=== PATIENT | female | born 1955 | race Caucasian/White ===

== ENCOUNTER → 2021-07-16 | Outpatient (CLI) | payer OTHER ==
[2021-07-16 11:31] LABS: Basophils # (auto) 0 10 ^3/uL (0-0.2); Basophils % (auto) 0.6 % (0.0-2.0); Eosinophils # (auto) 0.1 10 ^3/uL (0-0.8); Eosinophils % (auto) 2.4 % (0.0-7.0); Hematocrit 37.6 % (36.0-46.0); Hemoglobin 13.1 g/dL (12.2-16.2); Lymphocytes # (auto) 1.9 10 ^3/uL (0.4-5.4); Lymphocytes % (auto) 38.7 % (10.0-50.0); Mean Corpuscular Hemoglobin 31.8 pg (28.0-32.0); Mean Corpuscular Hgb Conc. 34.8 g/dL (32.0-36.0); Mean Corpuscular Volume 91.4 fL (80.0-100.0); Monocytes # (auto) 0.4 10 ^3/uL (0-1.3); Monocytes % (auto) 7.4 % (0.0-12.0); Neutrophils # (auto) 2.5 10 ^3/uL (1.6-8.6); Neutrophils % (auto) 50.9 % (37.0-80.0); Nucleated Red Blood Cells % 0.1 %; Red Blood Cells 4.11 10^6/uL (4.0-5.20); Red Cell Distribution Width 13.4 % (11.8-14.3); White Blood Cell 4.8 10^3/uL (4.4-10.8)
[2021-07-16 11:47] LABS: Albumin 3.6 g/dL (3.4-5.0); Calcium 9.5 mg/dL (8.5-10.1); Potassium 4.6 mmol/L (3.5-5.1)
[2021-07-16 11:49] LABS: Urine Bacteria FEW /hpf (None Seen); Urine Blood Negative /uL (Negative); Urine Hyaline Cast FEW /lpf (0 - 2); Urine Specific Gravity 1.011 (1.001-1.035); Urine WBC 4 /hpf (0 - 5)
[2021-07-16 11:51] LABS: BUN/Creatinine Ratio 14.3; Bilirubin, Total 0.7 mg/dL (0.2-1.0); Total Protein 7.8 g/dL (6.4-8.2)
== END | disposition home or self-care (01) ==
LOC: LAB 11:13
PROVIDERS: ATTEND Internal Medicine
DX: Z00.00 Encounter for general adult medical examination without abnormal findings (principal)
CPT/HCPCS: 36415; 80053; 80061; 81001; 83036; 85025

== ENCOUNTER → 2021-07-20 | Outpatient (CLI) | payer OTHER | END | disposition home or self-care (01) | LOC: LAB 17:00 | PROVIDERS: ATTEND Internal Medicine | DX: Z00.00 Encounter for general adult medical examination without abnormal findings (principal) | CPT/HCPCS: 82270 ==

== ENCOUNTER → 2021-09-14 | Outpatient (CLI) | payer OTHER ==
[2021-09-14 17:05] LABS: Albumin 3.9 g/dL (3.4-5.0); Bilirubin, Direct 0.2 mg/dL (0-0.2)
[2021-09-14 17:08] LABS: Bilirubin, Total 0.4 mg/dL (0.2-1.0); Total Protein 7.9 g/dL (6.4-8.2)
== END | disposition home or self-care (01) ==
LOC: LAB 16:24
PROVIDERS: ATTEND Internal Medicine
DX: E78.5 Hyperlipidemia, unspecified (principal)
CPT/HCPCS: 36415; 80076

== ENCOUNTER → 2021-11-01 | Outpatient (CLI) | payer OTHER ==
[2021-11-01 12:32] LABS: Urine Bacteria NONE SEEN /hpf (None Seen); Urine Blood Negative /uL (Negative); Urine Specific Gravity 1.019 (1.001-1.035); Urine WBC 14 /hpf (0 - 5)
== END | disposition home or self-care (01) ==
LOC: LAB 10:54
PROVIDERS: ATTEND Internal Medicine Gastroenterology
DX: N39.0 Urinary tract infection, site not specified (principal)
CPT/HCPCS: 81001; 87086; 87088

== ENCOUNTER → 2021-11-08 | Outpatient (CLI) | payer OTHER | END | disposition home or self-care (01) | LOC: LAB 09:45 | PROVIDERS: ATTEND Internal Medicine | DX: R10.9 Unspecified abdominal pain (principal) | CPT/HCPCS: 36415; 82565; 84520 ==

== ENCOUNTER → 2021-11-28 | Outpatient (CLI) | payer OTHER ==
[2021-11-28 10:58] LABS: Bilirubin, Direct 0.2 mg/dL (0-0.2); Bilirubin, Total 0.7 mg/dL (0.2-1.0); Total Protein 7.6 g/dL (6.4-8.2)
== END | disposition home or self-care (01) ==
LOC: LAB 09:58
PROVIDERS: ATTEND Internal Medicine
DX: R73.03 Prediabetes (principal); E78.5 Hyperlipidemia, unspecified
CPT/HCPCS: 36415; 80061; 80076; 82306; 83036

== ENCOUNTER → 2022-01-04 | Day surgery (SDC) | payer OTHER ==
[2021-12-30 09:36] LABS: Basophils # (auto) 0.1 10 ^3/uL (0-0.2); Basophils % (auto) 1.6 % (0.0-2.0); Eosinophils # (auto) 0.1 10 ^3/uL (0-0.8); Eosinophils % (auto) 1.6 % (0.0-7.0); Hematocrit 39.3 % (36.0-46.0); Hemoglobin 13.7 g/dL (12.2-16.2); Lymphocytes # (auto) 1.6 10 ^3/uL (0.4-5.4); Lymphocytes % (auto) 36.6 % (10.0-50.0); Mean Corpuscular Hemoglobin 32.3 pg (28.0-32.0); Mean Corpuscular Hgb Conc. 34.9 g/dL (32.0-36.0); Mean Corpuscular Volume 92.7 fL (80.0-100.0); Monocytes # (auto) 0.3 10 ^3/uL (0-1.3); Monocytes % (auto) 6.4 % (0.0-12.0); Neutrophils # (auto) 2.3 10 ^3/uL (1.6-8.6); Neutrophils % (auto) 53.8 % (37.0-80.0); Nucleated Red Blood Cells % 0.1 %; Red Blood Cells 4.24 10^6/uL (4.0-5.20); Red Cell Distribution Width 13.2 % (11.8-14.3); White Blood Cell 4.2 10^3/uL (4.4-10.8)
[2021-12-30 10:30] LABS: Albumin 3.9 g/dL (3.4-5.0); Calcium 9.6 mg/dL (8.5-10.1); Potassium 3.8 mmol/L (3.5-5.1)
[2021-12-30 10:35] LABS: Bilirubin, Total 0.8 mg/dL (0.2-1.0); Total Protein 7.5 g/dL (6.4-8.2)
[~2022-01-04] VITALS: Ht 165.1 cm; Wt 95.7 kg
[~2022-01-04] MED LIST: ATOR10TA PO; LIDOCAINE VISCOUS 2% 15ML UD ONE; LOSA25TA38 PO; METF-370 PO
[2022-01-04] MEDS: fentaNYL CITRATE 100 MCG/2 ML VL ONE ×3 (14:46→14:52)
[2022-01-04] MEDS: MIDAZOLAM HCL 5 MG/ML-1ML VIAL ONE ×3 (14:46→14:52)
[2022-01-04] MEDS: diphenhdrAMINE HCL 50 MG/1 ML VL ONE ×2 (14:46→14:49)
[2022-01-04 15:17] VITALS: BP 145/63
== END | disposition home or self-care (01) ==
LOC: GI 12:44
PROVIDERS: ATTEND Internal Medicine Gastroenterology
DX: R10.11 Right upper quadrant pain (principal); K29.50 Unspecified chronic gastritis without bleeding; K25.9 Gastric ulcer, unspecified as acute or chronic, without hemorrhage or perforation; K44.9 Diaphragmatic hernia without obstruction or gangrene; I10 Essential (primary) hypertension; E11.9 Type 2 diabetes mellitus without complications; E78.5 Hyperlipidemia, unspecified; G43.909 Migraine, unspecified, not intractable, without status migrainosus; Z98.890 Other specified postprocedural states; Z79.899 Other long term (current) drug therapy; Z88.0 Allergy status to penicillin; Z20.822 Contact with and (suspected) exposure to COVID-19
CPT/HCPCS: 36415; 43239; 80053; 82962; 85025; 88305; 88342; J1200; J2250; J3010; J7030; U0003; 99152

== ENCOUNTER → 2022-02-07 | Outpatient (CLI) | payer OTHER ==
[~2022-02-07] MED LIST changes: -LIDOCAINE VISCOUS 2% 15ML UD ONE
[2022-02-07 10:49] LABS: Urine Bacteria NONE SEEN /hpf (None Seen); Urine Blood Negative /uL (Negative); Urine Specific Gravity 1.012 (1.001-1.035); Urine WBC 1 /hpf (0 - 5)
== END | disposition home or self-care (01) ==
LOC: LAB 10:05
PROVIDERS: ATTEND Internal Medicine Gastroenterology
DX: N39.0 Urinary tract infection, site not specified (principal)
CPT/HCPCS: 81001; 87086

== ENCOUNTER → 2022-02-21 | Outpatient (CLI) | payer OTHER | END | disposition home or self-care (01) | LOC: LAB 10:25 | PROVIDERS: ATTEND Internal Medicine | DX: R73.03 Prediabetes (principal); E55.9 Vitamin D deficiency, unspecified | CPT/HCPCS: 36415; 82306; 83036; 84443 ==

== ENCOUNTER → 2022-03-21 | Outpatient (CLI) | payer OTHER | END | disposition home or self-care (01) | LOC: LAB 13:21 | PROVIDERS: ATTEND Internal Medicine | DX: Z12.11 Encounter for screening for malignant neoplasm of colon (principal) | CPT/HCPCS: 82270 ==

== ENCOUNTER → 2022-08-01 | Outpatient (CLI) | payer OTHER ==
[2022-08-01 13:19] LABS: Cholesterol 160 mg/dL (< 200); HDL Cholesterol 81 mg/dL (40-59); LDL Cholesterol 85 mg/dL (< 100); Triglycerides 48 mg/dL (< 150)
== END | disposition home or self-care (01) ==
LOC: LAB 11:55
PROVIDERS: ATTEND Internal Medicine
DX: R73.03 Prediabetes (principal)
CPT/HCPCS: 36415; 80061; 83036

== ENCOUNTER → 2022-08-07 | Outpatient (CLI) | payer OTHER | END | disposition home or self-care (01) | LOC: LAB 14:48 | PROVIDERS: ATTEND Internal Medicine | DX: R73.03 Prediabetes (principal) | CPT/HCPCS: 82043 ==

== ENCOUNTER 2023-02-27 10:31 | Emergency (ER) | payer OTHER ==
[2023-02-27] MEDS ORDERED: HYDROcodone-ACET 10/325MG TAB PO ONE (12:00)
[2023-02-27 13:17] VITALS: BP 188/63
[2023-02-27] MEDS ORDERED: HYDR-4902 PO (15:21)
[2023-02-27] MEDS ORDERED: IBUP800T26 PO (15:21)
== END 2023-02-27 15:22 | disposition home or self-care (01) ==
LOC: ER 10:31
DX: S39.012A Strain of muscle, fascia and tendon of lower back, initial encounter (principal); S80.02XA Contusion of left knee, initial encounter; E11.9 Type 2 diabetes mellitus without complications; I10 Essential (primary) hypertension; K21.9 Gastro-esophageal reflux disease without esophagitis; Z91.81 History of falling; Z88.0 Allergy status to penicillin; Z79.84 Long term (current) use of oral hypoglycemic drugs; W18.39XA Other fall on same level, initial encounter; Y93.89 Activity, other specified; Y92.89 Other specified places as the place of occurrence of the external cause; Y99.8 Other external cause status
CPT/HCPCS: 72100; 73030; 73080; 73110; 73130; 73562

== ENCOUNTER → 2023-03-05 | Outpatient (CLI) | payer OTHER ==
[~2023-03-05] MED LIST changes: +HYDR-4902 PO; +IBUP800T26 PO
[2023-03-05 11:54] LABS: Basophils # (auto) 0.1 10 ^3/uL (0-0.2); Basophils % (auto) 1.4 % (0.0-2.0); Eosinophils # (auto) 0.1 10 ^3/uL (0-0.8); Eosinophils % (auto) 2.2 % (0.0-7.0); Hematocrit 37.7 % (36.0-46.0); Hemoglobin 12.8 g/dL (12.2-16.2); Lymphocytes # (auto) 1.9 10 ^3/uL (0.4-5.4); Lymphocytes % (auto) 37.5 % (10.0-50.0); Mean Corpuscular Hemoglobin 31.5 pg (28.0-32.0); Mean Corpuscular Volume 92.7 fL (80.0-100.0); Monocytes # (auto) 0.2 10 ^3/uL (0-1.3); Monocytes % (auto) 4.7 % (0.0-12.0); Neutrophils # (auto) 2.8 10 ^3/uL (1.6-8.6); Neutrophils % (auto) 54.2 % (37.0-80.0); Nucleated Red Blood Cells % 0.1 %; Red Blood Cells 4.07 10^6/uL (4.0-5.20); Red Cell Distribution Width 12.8 % (11.8-14.3); White Blood Cell 5.1 10^3/uL (4.4-10.8)
[2023-03-05 13:05] LABS: Albumin 3.4 g/dL (3.4-5.0); BUN/Creatinine Ratio 14.3 (10.0-20.0); Bilirubin, Total 0.5 mg/dL (0.2-1.0); Potassium 3.9 mmol/L (3.5-5.1); Total Protein 7.2 g/dL (6.4-8.2)
== END | disposition home or self-care (01) ==
LOC: LAB 11:33
PROVIDERS: ATTEND Internal Medicine
DX: Z00.00 Encounter for general adult medical examination without abnormal findings (principal); Z12.11 Encounter for screening for malignant neoplasm of colon; R73.03 Prediabetes
CPT/HCPCS: 36415; 80053; 80061; 82306; 83036; 85025

== ENCOUNTER → 2023-03-15 | Outpatient (CLI) | payer OTHER | END | disposition home or self-care (01) | LOC: LAB 06:18 | PROVIDERS: ATTEND Internal Medicine | DX: Z12.11 Encounter for screening for malignant neoplasm of colon (principal); Z00.00 Encounter for general adult medical examination without abnormal findings; D72.819 Decreased white blood cell count, unspecified; R73.03 Prediabetes | CPT/HCPCS: 82270 ==

== ENCOUNTER → 2023-06-05 | Outpatient (CLI) | payer OTHER ==
[~2023-06-05] MED LIST changes: +IBUP-1455 PO; -IBUP800T26 PO; +LOSA25TA15 PO; -LOSA25TA38 PO
[2023-06-05 13:35] LABS: Calcium 9.1 mg/dL (8.5-10.1); Potassium 4.4 mmol/L (3.5-5.1)
[2023-06-05 13:38] LABS: BUN/Creatinine Ratio 12.1 (10.0-20.0)
== END | disposition home or self-care (01) ==
LOC: LAB 12:23
PROVIDERS: ATTEND Internal Medicine
DX: R73.03 Prediabetes (principal); E78.5 Hyperlipidemia, unspecified
CPT/HCPCS: 36415; 80048; 82043; 82306; 83036

== ENCOUNTER → 2023-09-06 | Outpatient (CLI) | payer OTHER | END | disposition home or self-care (01) | LOC: LAB 14:21 | PROVIDERS: ATTEND Internal Medicine | DX: E55.9 Vitamin D deficiency, unspecified (principal) | CPT/HCPCS: 82306 ==

== ENCOUNTER → 2024-09-04 | Outpatient (CLI) | payer OTHER ==
[~2024-09-04] MED LIST changes: +LOSA-533 PO; -LOSA25TA15 PO
[2024-09-04 11:12] LABS: Chloride 106 mmol/L (98-107); Potassium 4.3 mmol/L (3.5-5.1); Sodium 137 mmol/L (136-145)
[2024-09-04 11:13] LABS: Anion Gap 6 (5-15); Calcium 9.4 mg/dL (8.7-10.4); Carbon Dioxide 25 mmol/L (20-31)
[2024-09-04 11:18] LABS: BUN/Creatinine Ratio 14.3 (10.0-20.0); Blood Urea Nitrogen 12 mg/dL (9-23); Creatinine, Urine 85.79 mg/dL (30.0-125.0); Glucose 99 mg/dL (74-106)
== END | disposition home or self-care (01) ==
LOC: LAB 10:30
PROVIDERS: ATTEND Internal Medicine
DX: E11.9 Type 2 diabetes mellitus without complications (principal)
CPT/HCPCS: 36415; 80048; 82043; 82570

== ENCOUNTER 2024-12-20 08:49 | Inpatient (IN) | payer OTHER ==
[~2024-12-20] VITALS: Ht 165.1 cm; Wt 92.4 kg
--- NOTE | 2024-12-20 09:06 | ECG ---
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
--- NOTE | 2024-12-20 09:47 | ED.PDOC ---
History of Present Illness HPI Comments 69-year-old female presents with a chief complaint of hypertensive urgency with associated headache. 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 Patient mentions that she retook her BP at home and it was 200 systolic. In triage, patients BP was 211/90. Patient reports that her headache is rated a 7/10 at this time. Patient mentions that she is compliant with her Losartan medication. No other symptoms or modifying factors present at this time. Chief Complaint: High Blood Pressure Time Seen by MD: 09:33 Reviewed Notes: Medications, Allergies Allergies: Coded Allergies: Penicillins (Unverified Allergy, Unknown, 12/30/21) Home Meds Active Scripts Hydrocodone-Acetaminophen (Hydrocodone Bitartrate/AC 5-325 mg) 1 Tab Tab, 1 TAB PO Q6HP PRN, #10 TAB Prov:CHUNG UMANZOR PAC 02/27/23 Ibuprofen Micronized (Ibuprofen) 800 Mg Tab, 800 MG PO Q8HP PRN, #30 TAB Prov:CHUNG UMANZOR PAC 02/27/23 Reported Medications Atorvastatin Calcium (Lipitor) 10 Mg Tab, 10 MG PO, TAB 12/30/21 Metformin Hydrochloride (Metformin Hcl) 500 Mg Tab, 500 MG PO DAILY, TAB 12/30/21 Losartan Potassium (Losartan Potassium) 25 Mg Tab, 25 MG PO DAILY, TAB 12/30/21 Information Source: Patient Mode of Arrival: Ambulatory Severity: Moderate Timing: Days Duration: Intermittent Prehospital treatment: None Past Medical History PAST MEDICAL HISTORY: DM, GERD, HTN Surgical History: Denies all surgeries 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 Family History Family History: Reviewed,noncontributory to illness, No family hx of Cancer, No family hx of DM, No family hx of Heart inés, No family hx of HTN, No family hx ofKidney inés, No family hx of Liver inés, No family hx of Lung inés, No family hx of Stroke Social History Smoker: Non-Smoker Alcohol: Denies ETOH Use Drugs: Denies Drug Use Lives In: Home Constitutional: denies: chills, diaphoresis, fatigue, fever, malaise, sweats, weakness, others EENTM: denies: blurred vision, double vision, ear bleeding, ear discharge, ear drainage, ear pain, ear ringing, eye pain, eye redness, hearing loss, mouth pain, mouth swelling, nasal discharge, nose bleeding, nose congestion, nose pain, photophobia, tearing, throat pain, throat swelling, voice changes, others Respiratory: denies: cough, hemoptysis, orthopnea, SOB at rest, shortness of breath, SOB with excertion, stridor, wheezing, others Cardiovascular: reports: others (HYPERTENSIVE); denies: chest pain, dizzy spells, diaphoresis, Dyspnea on exertion, edema, irregular heart beat, left arm pain, lightheadedness, palpitations, PND, syncope Gastrointestinal: denies: abdomen distended, abdominal pain, blood streaked bowels, constipated, diarrhea, dysphagia, difficulty swallowing, hematemesis, melena, nausea, poor appetite, poor fluid intake, rectal bleeding, rectal pain, vomiting, others Genitourinary: denies: abnormal vagina bleeding, burning, dyspareunia, dysuria, flank pain, frequency, hematuria, incontinence, pain, , vagina discharge, urgency, others Neurological: reports: headache; denies: dizziness, fainting, left sided numbness, left sided weakness, numbness, paresthesia, pre-existing deficit, right sided numbness, right sided weakness, seizure, speech problems, tingling, tremors, weakness, others Musculoskeletal: denies: back pain, gout, joint pain, joint swelling, muscle pain, muscle stiffness, neck pain, others Integumetry: denies: bruises, change in color, change in hair/nails, dryness, laceration, lesions, lumps, rash, wounds, others Allergic/Immunocompromised: denies: Difficulty Healing, Frequent Infections, Hives, Itching, others Hematologic/Lymphatic: denies: anemia, blood clots, easy bleeding, easy bruising, swollen glands, others Endocrine: denies: excessive hunger, excessive sweating, excessive thirst, excessive urination, flushing, intolerance to cold, intolerance to heat, unexplained weight gain, unexplained weight loss, others Psychiatric: denies: anxiety, bipolar disorder, depression, hopeless, panic disorder, schizophrenia, sleepless, suicidal, others All Other Systems: Reviewed and Negative Physical Exam General Appearance: Mild Distress, Normal HEENT: Normal ENT Inspection, Pharynx Normal, TMs Normal Neck: Full Range of Motion, Non-Tender, Normal, Normal Inspection Respiratory: Chest Non-Tender, Lungs Clear, No Accessory Muscle Use, No Respiratory Distress, Normal Breath Sounds Cardiovascular: No Edema, No JVD, No Murmur, No Gallop, Normal Peripheral Pulses, Regular Rate/Rhythm, Other (HYPERTENSIVE) Breast Exam: Deferred Gastrointestinal: No Organomegaly, Non Tender, No Pulsatile Mass, Normal Bowel Sounds, Soft Genitalia: Deferred Pelvic: Deferred Rectal: Deferred Extremities: No calf tenderness, Normal capillary refill, Normal inspection, Normal range of motion, Non-tender, No pedal edema Musculoskeletal : Apperance: Normal Neurologic: Alert, hand embroiderer II-XII nml as Tested, No Motor Deficits, Normal Affect, Normal Mood, No Sensory Deficits Cerebellar Function: Normal Reflexes: Normal Skin: Dry, Normal Color, Warm Lymphatic: No Adenopathy Was a procedure done? Was a procedure done?: No EKG EKG : Pulse Rate (adult): 58 [place]: Normal Cardiac Rhythm: NSR Block: None Hypertrophy: None ST: Normal Differential Dx Considerations may include: HYPERTENSIVE URGENCY, HYPERTENSION X-Ray, Labs, Meds, VS Vital Signs Date Time Temp Pulse Resp B/P (MAP) Pulse Ox O2 Delivery O2 Flow Rate FiO2 12/20/24 14:03 98.4 75 18 156/75 (102) 100 98.4 12/20/24 11:49 77 127/56 (79) 12/20/24 11:02 Room Air* 0 21 12/20/24 10:58 181/93 12/20/24 10:40 98.6 62 18 181/93 (122) 98 98.6 12/20/24 09:47 58 12/20/24 09:01 58 12/20/24 08:59 97.9 79 14 211/90 (130) 94 12/20/24 08:59 79 Lab Test 12/20/24 10:54 12/20/24 10:37 Range/Units White Blood Count 4.9 4.4-10.8 10^3/uL Red Blood Count 4.06 4.0-5.20 10^6/uL Hemoglobin 13.0 12.2-16.2 g/dL Hematocrit 38.0 36.0-46.0 % Mean Corpuscular Volume 93.5 80.0-100.0 fL Mean Corpuscular Hemoglobin 32.1 H 28.0-32.0 pg Mean Corpuscular Hemoglobin Concent 34.4 32.0-36.0 g/dL Red Cell Distribution Width 13.2 11.8-14.3 % Platelet Count 228 140-450 10^3/uL Mean Platelet Volume 7.7 6.9-10.8 fL Neutrophils (%) (Auto) 62.3 37.0-80.0 % Lymphocytes (%) (Auto) 29.0 10.0-50.0 % Monocytes (%) (Auto) 5.8 0.0-12.0 % Eosinophils (%) (Auto) 2.3 0.0-7.0 % Basophils (%) (Auto) 0.6 0.0-2.0 % Neutrophils # (Auto) 3.0 1.6-8.6 10 ^3/uL Lymphocytes # (Auto) 1.4 0.4-5.4 10 ^3/uL Monocytes # (Auto) 0.3 0-1.3 10 ^3/uL Eosinophils # (Auto) 0.1 0-0.8 10 ^3/uL Basophils # (Auto) 0 0-0.2 10 ^3/uL Nucleated Red Blood Cells 0.1 % Sodium Level 139 136-145 mmol/L Potassium Level 3.8 3.5-5.1 mmol/L Chloride Level 104 98-107 mmol/L Carbon Dioxide Level 27 20-31 mmol/L Anion Gap 8 5-15 Blood Urea Nitrogen 8 L 9-23 mg/dL Creatinine 0.89 0.550-1.02 mg/dL Glomerular Filtration Rate Calc 70 >90 mL/min BUN/Creatinine Ratio 9.0 L 10.0-20.0 Serum Glucose 96 74-106 mg/dL Calcium Level 9.4 8.7-10.4 mg/dL Total Bilirubin 0.9 0.2-1.0 mg/dL Aspartate Amino Transferase (AST) 18 13-40 U/L Alanine Aminotransferase (ALT) 15 7-40 U/L Alkaline Phosphatase 83 46-116 U/L Total Protein 7.3 5.7-8.2 g/dL Albumin 4.6 3.2-4.8 g/dL Urine Color Straw Yellow Urine Clarity Clear Clear Urine pH 7.0 5.0-9.0 Urine Specific [place] 1.006 1.001-1.035 Urine Protein Negative Negative Urine Ketones Negative Negative Urine Blood Negative Negative /uL Urine Nitrite Negative Negative Urine Bilirubin Negative Negative Urine Urobilinogen Normal Negative mg/dL Urine Leukocyte Esterase 1+ Negative /uL Urine RBC 1 0 - 4 /hpf Urine Microscopic WBC 3 0-5 /HPF Urine Squamous Epithelial Cells Few <5 /hpf Urine Bacteria Few H None Seen /hpf Urine Glucose Normal Normal mg/dL Current Medications Medications (Trade) Dose Ordered Sig/Aayush Route Start Time Stop Time Status Last Admin Hydralazine HCl (Apresoline Injection) 5 mg ONCE ONCE IV 12/20/24 09:45 12/20/24 09:50 DC 12/20/24 10:58 PATIENT: JOVANI SOTO ACCT: [id number] UNIT: [id number] : 1955 LOC: ER ROOM / BED: / AGE / SEX: 69 / F ADM STATUS: REG ER SERVICE 3 ORDERING PHYSICIAN: EUGENIO SALAZAR MD PROCEDURE(s): HWOCT - HEAD WITHOUT CONTRAST REASON: ro bleed ORDER NUMBER(s): [id number], ACCESSION NUMBER(s): [id number] CLINICAL INFORMATION: 69 years old, Female; rule out bleed. Headache. High blood pressure. TECHNIQUE: Axial imaging was obtained through the brain without contrast. Coronal and sagittal reformatted images were obtained, reviewed, and stored. Images were reviewed in brain and bone windows. All CT scans at this medical facility are performed using dose modulation techniques as appropriate to a performed exam including the following: Automated exposure control was utilized; adjustment of the MA and/or KV according to patient size; and use of iterative reconstruction technique. CTDIvol = 52.39 mGy DLP = 863.9 mGy-cm COMPARISON: None FINDINGS: There is no acute intracranial hemorrhage or extraaxial fluid collection. No mass effect or midline shift. Scattered areas of hypoattenuation are seen in the periventricular and subcortical white matter, which are nonspecific but most likely sequelae of small vessel ischemic disease.The ventricles and sulci are within normal limits in size for age. Basal cisterns are patent. The calvarium is unremarkable. Paranasal sinuses and mastoid air cells are clear. IMPRESSION: 1. No CT evidence of acute intracranial abnormality. 2. Nonacute findings as described above. ATED BY: GABRIELE KIRK DO DICTATED DATE/TIME: 12/20/24 1010 SIGNED BY: GABRIELE KIRK DO SIGNED DATE/TIME: 12/20/24 1010 PATIENT: JOVANI SOTO ACCT: [id number] UNIT: [id number] : 1955 LOC: ER ROOM / BED: / AGE / SEX: 69 / F ADM STATUS: REG ER SERVICE ORDERING PHYSICIAN: EUGENIO SALAZAR MD PROCEDURE(s): CXR2 - CHEST TWO VIEWS ROUTINE REASON: sob ORDER NUMBER(s): [id number], ACCESSION NUMBER(s): [id number] EXAM: XR Chest, 1 View CLINICAL INDICATION: sob TECHNIQUE: Frontal view of the chest. COMPARISON: None FINDINGS: LUNGS AND PLEURAL SPACES: Mild congestion. No consolidation. No pneumothorax. HEART: Unremarkable. No cardiomegaly. MEDIASTINUM: Unremarkable. Normal mediastinal contour. BONES/JOINTS: Unremarkable. No acute fracture. OTHER FINDINGS: . IMPRESSION: Mild congestion. ATED BY: CHUNG PATEL MD DICTATED DATE/TIME: 12/20/24 1002 SIGNED BY: CHUNG PATEL MD SIGNED DATE/TIME: 12/20/24 1002 69-year-old female presents here with shortness of breath headache hypertension. She went to her doctor yesterday was found to have a systolic blood pressure of 211 she presents here today with a headache and continued high blood pressure of 211/90. Patient does not exactly sure what her blood pressure has been recently. She does take losartan. At this time given her headache, CT scan of the brain was done which demonstrates no acute pathology. Given her shortness of breath chest x-ray demonstrates mild congestion but no evidence of pneumonia. CBC and CMP are also within normal limits. Given her high blood pressure patient has been given hydralazine 5 mg IV with improvement in her blood pressure. She states she has been taking her losartan daily however I am concerned that this is not controlling her blood pressure appropriately. At this time believe she would benefit from inpatient admission. Hospitalist team has been contacted for admission. Time of 1ST Reevaluation: 09:43 Reevaluation 1ST: Unchanged Patient Education/Counseling: Diagnosis, Treatment, Prognosis Family Education/Counseling: Diagnosis, Treatment, Prognosis Departure 1 Departure Time of Disposition: 11:13 Impression: Primary Impression: Hypertensive urgency Additional Impression: SOB (shortness of breath) Disposition: 09 ADMITTED INPATIENT Condition: Fair Critical Care Note Critical Care Time?: No Stability Stability form required: No Heart Score Heart Score: Heart Score Response (Comments) Value History Slightly Suspicious 0 EKG Normal 0 Age >65 2 Risk Factors 1 or 2 risk factors 1 Troponin N/A 0 Total 3 I personally scribed for EUGENIO SALAZAR MD ([email or web address]) on 12/20/24 at 09:47. Electronically submitted by Rajeev Khoury ([email or web address]). I personally scribed for EUGENIO SALAZAR MD ([email or web address]) on 12/20/24 at 10:31. Electronically submitted by Rajeev Khoury ([email or web address]). I personally scribed for EUGENIO SALAZAR MD ([email or web address]) on 12/20/24 at 11:04. Electronically submitted by Rajeev Khoury ([email or web address]). I personally scribed for EUGENIO SALAZAR MD ([email or web address]) on 12/20/24 at 12:17. Electronically submitted by Rajeev Khoury ([email or web address]). EUGENIO SALAZAR MD Dec 20, 2024 09:47
--- NOTE | 2024-12-20 10:04 | DVH ---
EXAM: XR Chest, 1 View CLINICAL INDICATION: sob TECHNIQUE: Frontal view of the chest. COMPARISON: None FINDINGS: LUNGS AND PLEURAL SPACES: Mild congestion. No consolidation. No pneumothorax. HEART: Unremarkable. No cardiomegaly. MEDIASTINUM: Unremarkable. Normal mediastinal contour. BONES/JOINTS: Unremarkable. No acute fracture. OTHER FINDINGS: . IMPRESSION: Mild congestion.
--- NOTE | 2024-12-20 10:12 | DVH ---
CLINICAL INFORMATION: 69 years old, Female; rule out bleed. Headache. High blood pressure. TECHNIQUE: Axial imaging was obtained through the brain without contrast. Coronal and sagittal refor matted images were obtained, reviewed, and stored. Images were reviewed in brain and bone windows. A ll CT scans at this medical facility are performed using dose modulation techniques as appropriate to a performed exam including the following: Automated exposure control was utilized; adjustment of the MA and/or KV according to patient size; and use of iterative reconstruction technique. CTDIvol = 52.39 mGy DLP = 863.9 mGy-cm COMPARISON: None FINDINGS: There is no acute intracranial hemorrhage or extraaxial fluid collection. No mass effect o r midline shift. Scattered areas of hypoattenuation are seen in the periventricular and subcortical w cherise matter, which are nonspecific but most likely sequelae of small vessel ischemic disease.The vent ricles and sulci are within normal limits in size for age. Basal cisterns are patent. The calvari um is unremarkable. Paranasal sinuses and mastoid air cells are clear. IMPRESSION: 1. No CT evidence of acute intracranial abnormality. 2. Nonacute findings as described above.
[2024-12-20 10:56] LABS: Urine Bacteria FEW /hpf (None Seen); Urine Blood Negative /uL (Negative); Urine Clarity Clear (Clear); Urine Protein, UAD Negative (Negative); Urine Specific Gravity 1.006 (1.001-1.035); Urine Squamous Epithelial Cell FEW /hpf (<5); Urine Urobilinogen Normal (Negative); Urine WBC 3 /HPF (0-5)
[2024-12-20 10:57] LABS: Urine Color Straw (Yellow)
[2024-12-20] MEDS: hydrALAZINE HCL 20 MG/ML VL IV ONE ×2 (10:58→16:34)
[2024-12-20 11:29] LABS: Basophils # (auto) 0 10 ^3/uL (0-0.2); Basophils % (auto) 0.6 % (0.0-2.0); Eosinophils # (auto) 0.1 10 ^3/uL (0-0.8); Eosinophils % (auto) 2.3 % (0.0-7.0); Lymphocytes # (auto) 1.4 10 ^3/uL (0.4-5.4); Mean Corpuscular Hemoglobin 32.1 pg (28.0-32.0); Mean Corpuscular Hgb Conc. 34.4 g/dL (32.0-36.0); Mean Corpuscular Volume 93.5 fL (80.0-100.0); Monocytes # (auto) 0.3 10 ^3/uL (0-1.3); Monocytes % (auto) 5.8 % (0.0-12.0); Neutrophils % (auto) 62.3 % (37.0-80.0); Nucleated Red Blood Cells % 0.1 %; Platelet Count (auto) 228 10^3/uL (140-450); Red Blood Cells 4.06 10^6/uL (4.0-5.20); Red Cell Distribution Width 13.2 % (11.8-14.3); White Blood Cell 4.9 10^3/uL (4.4-10.8)
[2024-12-20 12:00] LABS: Alanine Aminotransferase 15 U/L (7-40); Albumin 4.6 g/dL (3.2-4.8); Alkaline Phosphatase 83 U/L (46-116); Anion Gap 8 (5-15); Aspartate Aminotransferase 18 U/L (13-40); Calcium 9.4 mg/dL (8.7-10.4); Carbon Dioxide 27 mmol/L (20-31); Chloride 104 mmol/L (98-107); Glucose 96 mg/dL (74-106); Potassium 3.8 mmol/L (3.5-5.1); Sodium 139 mmol/L (136-145)
[2024-12-20 12:01] LABS: Bilirubin, Total 0.9 mg/dL (0.2-1.0); Total Protein 7.3 g/dL (5.7-8.2)
[2024-12-20 12:11] LABS: Blood Urea Nitrogen 8 mg/dL (9-23)
[2024-12-20] MEDS ORDERED: ACETAMINOPHEN 325 MG TAB PO PRN (16:45)
[2024-12-20] MEDS ORDERED: hydrALAZINE HCL 20 MG/ML VL IV PRN (16:45)
--- NOTE | 2024-12-20 16:56 | DVHHP2 ---
History of Present Illness Reason for Visit: Elevated blood pressure History of Present Illness Hanane Calero is a 69-year-old female with past medical history of hypertension, hyperlipidemia, diabetes, GERD, and left breast lumpectomy who presents to the ED for headache, elevated blood pressure, nausea, vomiting, and diarrhea x2 days. 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 She reports that she was not stated to go in and get an evaluation from a doctor. She reports the heading as constant, pounding, 7/10 pain. Patient reports that there are no alleviating factors. However, she does state that she is pretty sensitive to light. Patient also reports of some chest congestion. Patient denies any chest pain, shortness of breath, fever, chills, recent sick contacts, recent illnesses, lightheadedness, dizziness, and weakness. Cardiovascular: HTN, hyperipidemia GI: GERD Endocrine: Diabetes Past Surgical History: Other (EGD and left breast lumpectomy) Family History: Other (Mom and dad with heart disease) Smoke: No ALCOHOL: none Drugs: None Lives: with Family Domestic Violence: Neg Review of Systems Constitutional: Yes: Other (Headache); No: Fever, Chills, Sweats, Weakness, Malaise Eyes: Other (Photophobia); No: Pain, Vision change, Conjunctivae inflammation, Eyelid inflammation, Redness ENT: No: Ear pain, Ear discharge, Nose pain, Nose discharge, Nose congestion, Mouth pain, Mouth swelling, Throat pain, Throat swelling, Other Respiratory: Other (Chest congestion); No: Cough, Dry, Shortness of breath, SOB with excertion, Wheezing, Hemoptysis, Pleuritic Pain, Sputum, Wheezing Cardiovascular: No: Chest Pain, Palpitations, Orthopnea, Paroxysmal Noc. Dyspnea, Edema, Lt Headedness, Other Gastrointestinal: Nausea, Vomiting, Diarrhea; No: Abdominal Pain, Constipation, Melena, Hematochezia, Other Genitourinary: No Dysuria, No Frequency, No Incontinence, No Hematuria, No Retention, No Other Musculoskeletal: No: other, neck pain, shoulder pain, arm pain, back pain, hand pain, leg pain, foot pain Skin: No: Rash, Lesions, Jaundice, Bruising, Other Neurological: No: Weakness, Numbness, Incoordination, Change in speech, Confusion, Seizures, Other Allergies: Coded Allergies: Penicillins (Unverified Allergy, Unknown, 12/30/21) Medications Current Medications Medications Dose Ordered Sig/Aayush Route Start Time Stop Time Status Last Admin Dose Admin Hydralazine HCl 10 mg Q6HP PRN IV 12/20/24 16:45 UNV Exam Vital Signs Vital Signs Date Time Temp Pulse Resp B/P (MAP) Pulse Ox O2 Delivery O2 Flow Rate FiO2 12/20/24 16:34 179/102 12/20/24 16:08 98.0 75 18 97 98.0 12/20/24 11:02 Room Air* 0 21 General Appearance: Alert, Oriented X3, Cooperative, No acute distress HEENT: Atraumatic, PERRLA, EOMI, Mucous membr. moist/pink Respiratory: Normal air movement Cardiovascular: Regular rate, Normal S1, Normal S2, No murmurs Abdominal: Normal bowel sounds, Soft, No tenderness, No hepatospenomegaly, No masses Extremities: No clubbing, No cyanosis, No edema, Normal pulses, No tenderness/swelling Skin: No rashes, No breakdown, No significant lesion Neuro: Normal gait, Normal speech, Strength at 5/5 X4 ext, Normal tone, Sensation intact Psych/Mental Status: Mental status NL, Mood NL Labs/Xrays Labs Test 12/20/24 10:54 12/20/24 10:37 Range/Units White Blood Count 4.9 4.4-10.8 10^3/uL Red Blood Count 4.06 4.0-5.20 10^6/uL Hemoglobin 13.0 12.2-16.2 g/dL Hematocrit 38.0 36.0-46.0 % Mean Corpuscular Volume 93.5 80.0-100.0 fL Mean Corpuscular Hemoglobin 32.1 H 28.0-32.0 pg Mean Corpuscular Hemoglobin Concent 34.4 32.0-36.0 g/dL Red Cell Distribution Width 13.2 11.8-14.3 % Platelet Count 228 140-450 10^3/uL Mean Platelet Volume 7.7 6.9-10.8 fL Neutrophils (%) (Auto) 62.3 37.0-80.0 % Lymphocytes (%) (Auto) 29.0 10.0-50.0 % Monocytes (%) (Auto) 5.8 0.0-12.0 % Eosinophils (%) (Auto) 2.3 0.0-7.0 % Basophils (%) (Auto) 0.6 0.0-2.0 % Neutrophils # (Auto) 3.0 1.6-8.6 10 ^3/uL Lymphocytes # (Auto) 1.4 0.4-5.4 10 ^3/uL Monocytes # (Auto) 0.3 0-1.3 10 ^3/uL Eosinophils # (Auto) 0.1 0-0.8 10 ^3/uL Basophils # (Auto) 0 0-0.2 10 ^3/uL Nucleated Red Blood Cells 0.1 % Sodium Level 139 136-145 mmol/L Potassium Level 3.8 3.5-5.1 mmol/L Chloride Level 104 98-107 mmol/L Carbon Dioxide Level 27 20-31 mmol/L Anion Gap 8 5-15 Blood Urea Nitrogen 8 L 9-23 mg/dL Creatinine 0.89 0.550-1.02 mg/dL Glomerular Filtration Rate Calc 70 >90 mL/min BUN/Creatinine Ratio 9.0 L 10.0-20.0 Serum Glucose 96 74-106 mg/dL Calcium Level 9.4 8.7-10.4 mg/dL Total Bilirubin 0.9 0.2-1.0 mg/dL Aspartate Amino Transferase (AST) 18 13-40 U/L Alanine Aminotransferase (ALT) 15 7-40 U/L Alkaline Phosphatase 83 46-116 U/L Total Protein 7.3 5.7-8.2 g/dL Albumin 4.6 3.2-4.8 g/dL Urine Color Straw Yellow Urine Clarity Clear Clear Urine pH 7.0 5.0-9.0 Urine Specific [place] 1.006 1.001-1.035 Urine Protein Negative Negative Urine Ketones Negative Negative Urine Blood Negative Negative /uL Urine Nitrite Negative Negative Urine Bilirubin Negative Negative Urine Urobilinogen Normal Negative mg/dL Urine Leukocyte Esterase 1+ Negative /uL Urine RBC 1 0 - 4 /hpf Urine Microscopic WBC 3 0-5 /HPF Urine Squamous Epithelial Cells Few <5 /hpf Urine Bacteria Few H None Seen /hpf Urine Glucose Normal Normal mg/dL CLINICAL INFORMATION: 69 years old, Female; rule out bleed. Headache. High blood pressure. TECHNIQUE: Axial imaging was obtained through the brain without contrast. Coronal and sagittal reformatted images were obtained, reviewed, and stored. Images were reviewed in brain and bone windows. All CT scans at this medical facility are performed using dose modulation techniques as appropriate to a performed exam including the following: Automated exposure control was utilized; adjustment of the MA and/or KV according to patient size; and use of iterative reconstruction technique. CTDIvol = 52.39 mGy DLP = 863.9 mGy-cm COMPARISON: None FINDINGS: There is no acute intracranial hemorrhage or extraaxial fluid collection. No mass effect or midline shift. Scattered areas of hypoattenuation are seen in the periventricular and subcortical white matter, which are nonspecific but most likely sequelae of small vessel ischemic disease.The ventricles and sulci are within normal limits in size for age. Basal cisterns are patent. The calvarium is unremarkable. Paranasal sinuses and mastoid air cells are clear. IMPRESSION: 1. No CT evidence of acute intracranial abnormality. 2. Nonacute findings as described above. EXAM: XR Chest, 1 View CLINICAL INDICATION: sob TECHNIQUE: Frontal view of the chest. COMPARISON: None FINDINGS: LUNGS AND PLEURAL SPACES: Mild congestion. No consolidation. No pneumothorax. HEART: Unremarkable. No cardiomegaly. MEDIASTINUM: Unremarkable. Normal mediastinal contour. BONES/JOINTS: Unremarkable. No acute fracture. OTHER FINDINGS: . IMPRESSION: Mild congestion. Assessment/Plan Assessment/Plan Assessment/Plan: Hypertensive urgency Labs Antihypertensive UA CT head negative Chest x-ray EKG BNP Lasix A.m. labs IV antibiotics-Levaquin + flagyl patient allergic to penicillins Diabetes type 2 Hemoglobin A1c ISS and Accu-Cheks Chronic hypertension Continue home medications Chronic hyperlipidemia Continue home medications Chronic GERD Continue home medications FEN/PPX Diet Hep-Lock DVT ppx - not indicated patient ambulating PUD prophylaxis-Protonix, continue home medication Discussed plan of care with patient and nurse Home medications reconciled Admit to med surge Plan discussed with: Patient My Orders Orders - TAYLER LANZA Procedure Category Date Status Time Hydralazine Injection PHA 12/20/24 Logged (Apresoline Inject 16:45 B-Type Natriuretic LAB 12/20/24 Logged Peptide 16:42 Furosemide Injection PHA 12/21/24 Verified (Lasix Injection) 10:00 Admit ADMIT 12/20/24 Verified 16:44 Allergies CELESTINA 12/20/24 Verified 16:44 Code Status CODE 12/20/24 Verified 16:44 2 Gm Sodium Diet DIET 12/20/24 Verified Dinner Hydrocodone-Acet PHA 12/20/24 Verified 5/325mg Tab ([place] 16:45 Ondansetron Hcl PHA 12/20/24 Verified (Zofran) 16:45 Complete Blood Count LAB 12/21/24 Verified 04:00 Comprehensive LAB 12/21/24 Verified Metabolic Panel 04:00 Acetaminophen Tablet PHA 12/20/24 Verified (Tylenol Tablet) 16:45 Date of Service: Dec 20, 2024 Billing Provider: TAYLER LANZA Common Visit Codes: 50206-LEHJVFR INP/OBS CARE (HIGH) TAYLER LANZA Dec 20, 2024 16:56
[2024-12-20] MEDS ORDERED: DEXTROSE (50%) 50ML SYRG IV PRN (17:00)
[2024-12-20] MEDS ORDERED: levoFLOXacin 500MG 100 ML IV ONE (17:00)
[2024-12-20] MEDS: InsuLIN REG 1unit/0.01ml Soln (100units/ml) SC SCH (17:00)
[2024-12-20] MEDS: metroNIDAZOLE 500MG/100ML 100 ML IV ONE (17:15)
[2024-12-20] MEDS: ACCU-CHEK COMFORT CURVE STRIP VI SCH (17:27)
[2024-12-20] MEDS: CIPROFLOXACIN 400MG/200ML 200 ML IV ONE (17:48)
[2024-12-20] MEDS: HYDROcodone-ACET 5/325MG TAB PO PRN (17:49)
[2024-12-20] MEDS: ONDANSETRON HCL 4 MG/2 ML VIAL IV PRN (17:52)
[2024-12-20] MEDS: metroNIDAZOLE 500MG/100ML 100 ML IV SCH (22:38)
[2024-12-20] MEDS: CIPROFLOXACIN 400MG/200ML 200 ML IV SCH (23:29)
[2024-12-21 01:00] VITALS: BP 120/47; PULSE 75; RESP 16; TEMP 97.7; O2SAT 96
[2024-12-21 05:00] VITALS: BP 152/64; PULSE 80; RESP 16; TEMP 98; O2SAT 97
[2024-12-21 06:37] LABS: Basophils # (auto) 0 10 ^3/uL (0-0.2); Basophils % (auto) 0.5 % (0.0-2.0); Eosinophils # (auto) 0.1 10 ^3/uL (0-0.8); Eosinophils % (auto) 1.6 % (0.0-7.0); Hematocrit 36.3 % (36.0-46.0); Hemoglobin 12.1 g/dL (12.2-16.2); Lymphocytes # (auto) 1.6 10 ^3/uL (0.4-5.4); Lymphocytes % (auto) 25.1 % (10.0-50.0); Mean Corpuscular Hemoglobin 31.9 pg (28.0-32.0); Mean Corpuscular Hgb Conc. 33.3 g/dL (32.0-36.0); Mean Corpuscular Volume 95.8 fL (80.0-100.0); Monocytes # (auto) 0.6 10 ^3/uL (0-1.3); Monocytes % (auto) 10.3 % (0.0-12.0); Neutrophils # (auto) 3.9 10 ^3/uL (1.6-8.6); Neutrophils % (auto) 62.5 % (37.0-80.0); Platelet Count (auto) 221 10^3/uL (140-450); Red Blood Cells 3.79 10^6/uL (4.0-5.20); Red Cell Distribution Width 13.4 % (11.8-14.3); White Blood Cell 6.2 10^3/uL (4.4-10.8)
[2024-12-21 06:56] LABS: Alanine Aminotransferase 11 U/L (7-40); Albumin 4.1 g/dL (3.2-4.8); Alkaline Phosphatase 73 U/L (46-116); Anion Gap 9 (5-15); BUN/Creatinine Ratio 10.2 (10.0-20.0); Blood Urea Nitrogen 9 mg/dL (9-23); Calcium 9.6 mg/dL (8.7-10.4); Carbon Dioxide 25 mmol/L (20-31); Chloride 104 mmol/L (98-107); Glucose 96 mg/dL (74-106); Potassium 3.6 mmol/L (3.5-5.1); Sodium 138 mmol/L (136-145)
[2024-12-21 06:57] LABS: Total Protein 6.5 g/dL (5.7-8.2)
[2024-12-21 07:07] LABS: Aspartate Aminotransferase 12 U/L (13-40)
[2024-12-21 07:12] LABS: Bilirubin, Total 0.7 mg/dL (0.2-1.0)
[2024-12-21] MEDS ORDERED: levoFLOXacin 500MG 100 ML IV SCH (10:00)
[2024-12-21] MEDS: FUROSEMIDE 40 MG/4 ML VIAL IV SCH (10:56)
[2024-12-21] MEDS: HYDROmorphone HCL 2 MG/ML VL/or syr IV ONE (11:21)
[2024-12-21 19:27] VITALS: BP 155/74; PULSE 67; RESP 18; TEMP 97.8; O2SAT 98
[2024-12-21 21:41] VITALS: BP 143/61; PULSE 67; RESP 19; TEMP 99.2; O2SAT 97
[2024-12-21 22:43] VITALS: O2SAT 96
[2024-12-22 01:00] VITALS: BP 143/69; PULSE 70; RESP 20; TEMP 98; O2SAT 97
[2024-12-22 05:00] VITALS: BP 130/55; PULSE 66; RESP 20; TEMP 97.5; O2SAT 97
[2024-12-22 08:15] VITALS: PULSE 63; RESP 18; O2SAT 99
[2024-12-22 09:00] VITALS: BP 145/59; PULSE 63; RESP 18; TEMP 98.1; O2SAT 99
[2024-12-22] MEDS: levoFLOXacin 500MG 100 ML IV SCH (10:00)
[2024-12-22] MEDS ORDERED: LOSARTAN POTASSIUM 25 MG TAB PO ONE (11:30)
--- NOTE | 2024-12-22 11:51 | DVHDS2 ---
Discharge Summary Date of Admission Dec 20, 2024 at 16:44 Date of Discharge: Dec 22, 2024 Labs/Diagnostic Data: Laboratory Results Test 12/22/24 05:47 12/21/24 06:03 12/20/24 10:55 12/20/24 10:54 POC Glucose 110 mg/dl (70-106) White Blood Count 6.2 10^3/uL (4.4-10.8) Red Blood Count 3.79 10^6/uL (4.0-5.20) Hemoglobin 12.1 g/dL (12.2-16.2) Hematocrit 36.3 % (36.0-46.0) Mean Corpuscular Volume 95.8 fL (80.0-100.0) Mean Corpuscular Hemoglobin 31.9 pg (28.0-32.0) Mean Corpuscular Hemoglobin Concent 33.3 g/dL (32.0-36.0) Red Cell Distribution Width 13.4 % (11.8-14.3) Platelet Count 221 10^3/uL (140-450) Mean Platelet Volume 7.4 fL (6.9-10.8) Neutrophils (%) (Auto) 62.5 % (37.0-80.0) Lymphocytes (%) (Auto) 25.1 % (10.0-50.0) Monocytes (%) (Auto) 10.3 % (0.0-12.0) Eosinophils (%) (Auto) 1.6 % (0.0-7.0) Basophils (%) (Auto) 0.5 % (0.0-2.0) Neutrophils # (Auto) 3.9 10 ^3/uL (1.6-8.6) Lymphocytes # (Auto) 1.6 10 ^3/uL (0.4-5.4) Monocytes # (Auto) 0.6 10 ^3/uL (0-1.3) Eosinophils # (Auto) 0.1 10 ^3/uL (0-0.8) Basophils # (Auto) 0 10 ^3/uL (0-0.2) Nucleated Red Blood Cells 0.0 % Sodium Level 138 mmol/L (136-145) Potassium Level 3.6 mmol/L (3.5-5.1) Chloride Level 104 mmol/L (98-107) Carbon Dioxide Level 25 mmol/L (20-31) Anion Gap 9 (5-15) Blood Urea Nitrogen 9 mg/dL (9-23) Creatinine 0.88 mg/dL (0.550-1.02) Glomerular Filtration Rate Calc 71 mL/min (>90) BUN/Creatinine Ratio 10.2 (10.0-20.0) Serum Glucose 96 mg/dL (74-106) Calcium Level 9.6 mg/dL (8.7-10.4) Total Bilirubin 0.7 mg/dL (0.2-1.0) Aspartate Amino Transferase (AST) 12 U/L (13-40) Alanine Aminotransferase (ALT) 11 U/L (7-40) Alkaline Phosphatase 73 U/L (46-116) Total Protein 6.5 g/dL (5.7-8.2) Albumin 4.1 g/dL (3.2-4.8) B-Type Natriuretic Peptide 238.15 pg/mL (0-100) Hemoglobin A1c 5.6 % A1C (<5.7) Test 12/20/24 10:37 Urine Color Straw (Yellow) Urine Clarity Clear (Clear) Urine pH 7.0 (5.0-9.0) Urine Specific [place] 1.006 (1.001-1.035) Urine Protein Negative (Negative) Urine Ketones Negative (Negative) Urine Blood Negative /uL (Negative) Urine Nitrite Negative (Negative) Urine Bilirubin Negative (Negative) Urine Urobilinogen Normal mg/dL (Negative) Urine Leukocyte Esterase 1+ /uL (Negative) Urine RBC 1 /hpf (0 - 4) Urine Microscopic WBC 3 /HPF (0-5) Urine Squamous Epithelial Cells Few /hpf (<5) Urine Bacteria Few /hpf (None Seen) Urine Glucose Normal mg/dL (Normal) Other Laboratory Tests 12/21/24 06:03 Brief Hx & Hospital Course: see dictated note Condition at Discharge: Fair Final Diagnosis/Problems List htn Discharge Disposition: Home Discharge Instruct/Medications Diet: Cardiac 2g Na,low cholest Activity: See Comment Follow Up/Referral: fu with pcp in 1 wk Medications: script to pharmacy resume home meds except change in losartan dose Discharge Statement: "Patient was advised to return to the ER or call 911 if any headaches, dizziness, shortness of breath, chest pain, abdominal pain, bleeding, fevers, or worsening of medical condition. Patient was counseled about treatment plan, medications, possible side effects, patientverbalized understanding. All questions were answered to the best of my ability. This discharge took greater then 30 minutes in planning, reviewing documentation, counseling the patient, and discussing with other team members." ASSESSMENT ASSESSMENT Assessment htn Date of Service: Dec 22, 2024 Billing Provider: RIRI BARR MD Common Visit Codes: 84229-YDN/OBS DISCH DAY >30min RIRI BARR MD Dec 22, 2024 11:51
[2024-12-22] MEDS ORDERED: LOSA-534 PO (11:52)
[2024-12-22] MEDS ORDERED: HYDR25TA5 PO (11:52)
--- NOTE | 2024-12-22 12:00 | DVHDS ---
DATE OF DISCHARGE: 12/22/2024 HISTORY OF PRESENT ILLNESS: The patient is a 69-year-old lady who was admitted with history of elevated blood pressure and has history of hypertension, hyperlipidemia, previous left breast lumpectomy and GERD. HOSPITAL COURSE: The patient was noted to have elevated blood pressure of 211/90. The patient had a CT of head that showed no acute intracranial pathology. A chest x-ray showed possible mild congestion. The patient has since had improvement in her symptoms. Blood pressure is currently under control. She will be discharged home to resume her home medications except her losartan dose will be increased from 25 to 50 mg daily and she will be placed on hydrochlorothiazide 25 mg every morning. She will be monitoring her blood pressure at home and will follow up with Dr. Trejo in the next 2 weeks. FINAL DIAGNOSES: Therefore, * Hypertensive urgency. * Diabetes mellitus. * Gastroesophageal reflux disease. * Obesity. * History of breast cancer. Time spent in discharge planning and review of plan with the patient and nursing was 37 minutes. MD KATHERIN Davis/VALERY TID: [id number] RECEIPT: [id number]
[2024-12-22 13:00] VITALS: BP 135/53; PULSE 66; RESP 18; TEMP 98; O2SAT 98
[2024-12-22 13:35] VITALS: BP 135/53; PULSE 66; RESP 18; TEMP 98; O2SAT 98
== END 2024-12-22 15:00 | disposition home or self-care (01) | DRG 305 ==
LOC: ER 08:49 → OVERFLOW 16:44 → EAST 16:46
PROVIDERS: ATTEND Internal Medicine
DX: I16.0 Hypertensive urgency (principal); E11.9 Type 2 diabetes mellitus without complications; K21.9 Gastro-esophageal reflux disease without esophagitis; I10 Essential (primary) hypertension; E78.5 Hyperlipidemia, unspecified; E66.9 Obesity, unspecified; Z79.899 Other long term (current) drug therapy; Z88.0 Allergy status to penicillin; Z85.3 Personal history of malignant neoplasm of breast; Z79.84 Long term (current) use of oral hypoglycemic drugs; Z68.38 Body mass index [BMI] 38.0-38.9, adult
CPT/HCPCS: 36415; 70450; 71046; 80053; 81001; 82962; 83036; 83880; 85025; 93005; 96365; 96375; G0378; J1815; J2405; J3490

== ENCOUNTER → 2025-02-02 | Outpatient (CLI) | payer OTHER ==
[~2025-02-02] MED LIST changes: +HYDR25TA5 PO; +LOSA-534 PO
[2025-02-02 13:10] LABS: Alanine Aminotransferase 15 U/L (7-40); Albumin 4.6 g/dL (3.2-4.8); Alkaline Phosphatase 71 U/L (46-116); Anion Gap 5 (5-15); Aspartate Aminotransferase 14 U/L (13-40); BUN/Creatinine Ratio 16.7 (10.0-20.0); Bilirubin, Total 0.7 mg/dL (0.2-1.0); Blood Urea Nitrogen 15 mg/dL (9-23); Calcium 9.9 mg/dL (8.7-10.4); Carbon Dioxide 31 mmol/L (20-31); Chloride 101 mmol/L (98-107); Cholesterol 188 mg/dL (< 200); Glucose 103 mg/dL (74-106); HDL Cholesterol 70 mg/dL (40-59); LDL Cholesterol 103 mg/dL (< 100); Sodium 137 mmol/L (136-145); Total Protein 7.4 g/dL (5.7-8.2); Triglycerides 82 mg/dL (< 150)
[2025-02-02 13:39] LABS: Creatinine, Urine 63.47 mg/dL (30.0-125.0)
[2025-02-02 13:46] LABS: Micro Albumin < 3.0 mg/L (<30.0)
== END | disposition home or self-care (01) ==
LOC: LAB 12:20
PROVIDERS: ATTEND Internal Medicine
DX: Z12.11 Encounter for screening for malignant neoplasm of colon (principal); I10 Essential (primary) hypertension; E11.9 Type 2 diabetes mellitus without complications
CPT/HCPCS: 36415; 80053; 80061; 82043; 82306; 82570; 82607; 83036; 84443

== ENCOUNTER → 2025-02-09 | Outpatient (CLI) | payer OTHER | END | disposition home or self-care (01) | LOC: LAB 15:48 | PROVIDERS: ATTEND Internal Medicine | DX: Z12.11 Encounter for screening for malignant neoplasm of colon (principal); I10 Essential (primary) hypertension; E11.9 Type 2 diabetes mellitus without complications | CPT/HCPCS: 82270 ==

== ENCOUNTER 2025-05-11 20:02 | Inpatient (IN) | payer OTHER ==
[~2025-05-11] VITALS: Ht 165.1 cm; Wt 110.3 kg
[2025-05-12] MEDS: SODIUM CHLORIDE 0.9% 1,000 ML IV SCH (12:00)
[2025-05-12] MEDS ORDERED: CHOL20007 PO (12:02)
--- NOTE | 2025-05-12 12:43 | DVH ---
EXAM: XY CHEST PORTABLE HISTORY: NG Tube Placement COMPARISON: None TECHNIQUE: Portable AP view of the chest was performed. FINDINGS: NG tube tip is in the region of the GE junction. Lung volumes are low. No pneumothorax. There is bila teral lung base opacity. The heart is enlarged. IMPRESSION: 1. NG tube tip is in the region of the GE junction and should be advanced. It is uncertain if there m ay be a hiatal hernia. 2. Cardiomegaly. 3. Bilateral lung base opacities may be due to atelectasis, scarring, pleural effusions, and/or pneum onia. These are likely exaggerated by low lung volumes.
[2025-05-12 13:00] VITALS: BP 142/72; PULSE 73; RESP 16; TEMP 98.3; O2SAT 92
--- NOTE | 2025-05-12 13:30 | DVH ---
Exam: CT CT AB PEL WO CON-NO ORAL OR IV History: abd pain Comparison Study: CT abdomen and pelvis 05/08/2025 report only. TECHNIQUE: Multidetector CT of the abdomen and pelvis without IV contrast. Axial, coronal and sagitta l multiplanar reformats were obtained from the axial data set by the technologist. Radiation Dose Information: CT Dose: CTDI volume is 24.62 mGy. Dose-length product is 1428.4 mGy*cm FINDINGS: Small right-sided pleural effusion with bibasilar atelectasis. Partially visualized heart is unremark able. Small hepatic cysts, largest measuring up to 3.2 cm. Otherwise, liver, spleen pancreas and adrenal gl ands are unremarkable. Kidneys, ureters and decompressed urinary bladder unremarkable. Adnexa unremarkable. Enteric tube is noted terminating within the stomach. Stomach is unremarkable. Proximal and mid smal l bowel loops are fluid-filled and mildly distended measuring up to 3.7 cm. Diluted contrast is noted within the distal small bowel loops with contrast noted within the colon extending from the cecum to the rectum. Appendix is unremarkable. Mild wall thickening of the ascending colon descending colon a nd sigmoid. Descending colon and Sigmoid diverticulosis without diverticulitis. No evidence of intraperitoneal free air. Small amount of free fluid within the pelvis. No evidence of aortic aneurysm. Remd-au-uvmfvabi atherosclerotic calcification of the aorta. No significant lymphadenopathy. Tiny fat containing umbilical hernia. There is lateral and posterior body wall edema. Small fat conta ining bilateral inguinal hernias. Partial fusion of T8 and T9 vertebral bodies IMPRESSION: Filled small bowel loops with distention of the proximal and mid small bowel loops up to 3.7 cm. Justyna elate for ileus versus partial bowel obstruction with diluted oral contrast noted within the distal s mall bowel and contrast noted throughout the large bowel. Mild wall thickening of the ascending colon, descending colon and sigmoid. Correlate for mild coliti s. Descending colon and Sigmoid diverticulosis without diverticulitis. Small amount of free fluid within the pelvis which may be associated with the bowel obstruction/ ileu s. Small right-sided pleural effusion with bibasilar atelectasis. Additional findings as above.
--- NOTE | 2025-05-12 15:26 | DVHHP2 ---
Review of Systems Allergies: Coded Allergies: Penicillins (Unverified Allergy, Unknown, 12/30/21) Medications Current Medications Medications Dose Ordered Sig/Aayush Route Start Time Stop Time Status Last Admin Dose Admin Sodium Chloride 1,000 ml @ 75 mls/hr [id number] IV 05/12/25 12:00 05/12/25 12:00 75 MLS/HR Pantoprazole Sodium 40 mg DAILY IV 05/13/25 10:00 Morphine Sulfate 1 mg Q4HP PRN IV 05/12/25 15:30 Acetaminophen/ Hydrocodone Bitart 1 tab Q6HPRN PRN PO 05/12/25 15:30 Acetaminophen 650 mg Q6HP PRN PO 05/12/25 15:30 Ondansetron HCl 4 mg Q6HPRN PRN IV 05/12/25 15:30 Diagnostic Test (Pha) 1 strip Q6HR 05/12/25 18:00 Insulin Human Regular Q6HR SC 05/12/25 18:00 Dextrose 50 ml UD PRN IV 05/12/25 15:30 Exam Vital Signs Vital Signs Date Time Temp Pulse Resp B/P (MAP) Pulse Ox O2 Delivery O2 Flow Rate FiO2 05/12/25 13:10 Room Air* 0 21 05/12/25 13:00 98.3 73 16 142/72 95 92 98.3 Assessment/Plan Assessment/Plan see dictated note Plan discussed with: Patient, Spouse My Orders Orders - RIRI BARR MD Procedure Category Date Status Time Admit ADMIT 05/12/25 Transmitted 11:58 Npo (Nothing By DIET 05/12/25 Transmitted Mouth) Diet Lunch Sodium Chloride 0.9% PHA 05/12/25 In Process 12:00 Ct Ab Pel Wo Con-No CT 05/12/25 Resulted Oral Or Iv 11:58 Pantoprazole PHA 05/13/25 In Process (Protonix) 10:00 Ng To Lis CELESTINA 05/12/25 In Process 11:58 Chest Portable XY 05/12/25 Resulted 12:04 Chest Xray 1 View XY 05/12/25 Logged 14:08 Complete Blood Count LAB 05/12/25 Logged 15:16 Comprehensive LAB 05/12/25 Logged Metabolic Panel 15:16 Morphine Sulfate PHA 05/12/25 In Process Injection 15:30 Hydrocodone-Acet PHA 05/12/25 In Process 5/325mg Tab ([place] 15:30 Acetaminophen Tablet PHA 05/12/25 In Process (Tylenol Tablet) 15:30 Ondansetron Hcl PHA 05/12/25 In Process (Zofran) 15:30 Glucose Blood PHA 05/12/25 In Process (Accu-Chek Comfort 18:00 Insulin R (Human) PHA 05/12/25 In Process (Insulin R) 18:00 Dextrose 50% Syringe PHA 05/12/25 In Process 15:30 Hemoglobin A1c LAB 05/12/25 Logged 15:17 Date of Service: May 12, 2025 Billing Provider: RIRI BARR MD Common Visit Codes: [id number] INP/OBS CARE (HIGH) Secondary Visit Codes: [id number] CARE PLAN 30 MINUTES RIRI BARR MD May 12, 2025 15:26
[2025-05-12] MEDS ORDERED: ONDANSETRON HCL 4 MG/2 ML VIAL IV PRN (15:30)
[2025-05-12] MEDS ORDERED: MORPHINE SULFATE INJ 2 MG/ml SYRG IV PRN (15:30)
[2025-05-12] MEDS ORDERED: ACETAMINOPHEN 325 MG TAB PO PRN (15:30)
[2025-05-12] MEDS ORDERED: hydrALAZINE HCL 20 MG/ML VL IV PRN (15:30)
[2025-05-12] MEDS ORDERED: DEXTROSE (50%) 50ML SYRG IV PRN (15:30)
[2025-05-12] MEDS ORDERED: HYDROcodone-ACET 5/325MG TAB PO PRN (15:30)
--- NOTE | 2025-05-12 15:55 | DVHHP ---
ADMIT DATE: 05/12/2025 HISTORY OF PRESENT ILLNESS: The patient is a 69-year-old lady who has been transferred from [facility] where she initially went with history of abdominal pain, nausea, vomiting, and constipation. The patient was constipated for 5-7 days. The patient was initially sent home, but got readmitted at [facility]. The patient has since had a small-bowel follow-through and has had liquid stool. She denies any significant pain. No history of nausea. No history of vomiting. No history of fever. No history of shortness of breath. No history of dizziness or syncope. REVIEW OF SYSTEMS: Review of the rest of the systems otherwise currently negative. PAST MEDICAL HISTORY: Significant for diabetes, hypertension, and hyperlipidemia. MEDICATIONS: Include Lipitor, hydrochlorothiazide, losartan, metformin. ALLERGIES: PENICILLIN. SOCIAL HISTORY: Denies smoking, alcohol. Lives at home with family. FAMILY HISTORY: Negative. PHYSICAL EXAMINATION: GENERAL: The patient is awake and alert. VITAL SIGNS: Temperature of 98.3, pulse 73 per minute, blood pressure 142/72. SHEENT: Unremarkable. NECK: No JVD. No pedal edema. LUNGS: Equal bilaterally. No added sounds. CARDIOVASCULAR: S1 and S2 is regular without murmurs. ABDOMEN: Soft. Bowel sounds are hypoactive. There is NG tube in place. NEUROLOGIC: Nonfocal. MUSCULOSKELETAL: Normal. ASSESSMENT AND PLAN: * Abdominal pain with questionable small-bowel obstruction. The patient will have a CAT scan. She will be placed on a clear liquid diet as tolerated if there is no bowel obstruction and on IV antibiotics. * Diabetes mellitus, for which she will be placed on sliding scale insulin. * Hypertension, for which she will be placed on as-needed hydralazine. * Obesity. * Hyperlipidemia. * Gastroesophageal reflux disease. ADVANCED CARE PLANNING: The patient is a full code-Time spent was 18 minutes. MD KATHERIN Davis/JASON TID: [id number] RECEIPT: [id number] [facility]
[2025-05-12 15:59] LABS: Basophils # (auto) 0 10 ^3/uL (0-0.2); Basophils % (auto) 0.2 % (0.0-2.0); Eosinophils # (auto) 0 10 ^3/uL (0-0.8); Eosinophils % (auto) 0.9 % (0.0-7.0); Hematocrit 36.8 % (36.0-46.0); Hemoglobin 12.9 g/dL (12.2-16.2); Lymphocytes # (auto) 0.7 10 ^3/uL (0.4-5.4); Lymphocytes % (auto) 14.2 % (10.0-50.0); Mean Corpuscular Hemoglobin 32.1 pg (28.0-32.0); Mean Corpuscular Hgb Conc. 35.1 g/dL (32.0-36.0); Mean Corpuscular Volume 91.3 fL (80.0-100.0); Monocytes # (auto) 0.4 10 ^3/uL (0-1.3); Monocytes % (auto) 8.3 % (0.0-12.0); Neutrophils # (auto) 3.7 10 ^3/uL (1.6-8.6); Neutrophils % (auto) 76.4 % (37.0-80.0); Nucleated Red Blood Cells % 0.3 %; Platelet Count (auto) 210 10^3/uL (140-450); Red Blood Cells 4.03 10^6/uL (4.0-5.20); White Blood Cell 4.8 10^3/uL (4.4-10.8)
--- NOTE | 2025-05-12 16:06 | DVH ---
CHEST RADIOGRAPH Indication: ng placement Technique: Single frontal view of the chest was obtained COMPARISON: XY CHEST PORTABLE on DOS: 05/12/25 FINDINGS: Lines and Tubes: NG tube is in the proximal fundus. Lungs: Minimal bibasilar atelectasis. Pleura: No effusion. No pneumothorax. Cardiomediastinal contours: Unremarkable Bones: Unremarkable IMPRESSION: 1. NG tube in the proximal fundus.
[2025-05-12 16:13] LABS: Alanine Aminotransferase 15 U/L (7-40); Albumin 3.8 g/dL (3.2-4.8); Alkaline Phosphatase 54 U/L (46-116); Anion Gap 11 (5-15); Aspartate Aminotransferase 21 U/L (<34); BUN/Creatinine Ratio 17.1 (10.0-20.0); Bilirubin, Total 0.7 mg/dL (0.2-1.0); Blood Urea Nitrogen 13 mg/dL (9-23); Calcium 9.3 mg/dL (8.7-10.4); Chloride 99 mmol/L (98-107); Glucose 92 mg/dL (74-106); Sodium 143 mmol/L (136-145); Total Protein 6.2 g/dL (5.7-8.2)
[2025-05-12 16:14] LABS: Carbon Dioxide 33 mmol/L (20-31)
[2025-05-12 17:00] VITALS: BP 149/71; PULSE 77; RESP 16; TEMP 98.1; O2SAT 92
[2025-05-12] MEDS: InsuLIN REG 1unit/0.01ml Soln (100units/ml) SC SCH (18:00)
[2025-05-12] MEDS: ACCU-CHEK COMFORT CURVE STRIP VI SCH (18:00)
[2025-05-12] MEDS: PANTOPRAZOLE 40 MG/10 ML VIAL INJ IV ONE (19:04)
[2025-05-12 20:00] VITALS: PULSE 76; RESP 18; O2SAT 94
[2025-05-12 21:00] VITALS: BP 152/83; PULSE 76; RESP 18; TEMP 97.9; O2SAT 94
[2025-05-13] VITALS (7 sets, daily range): BP systolic 120–154; BP diastolic 63–99; PULSE 67–87; RESP 17–19; TEMP 97–98.9; O2SAT 91–98
--- NOTE | 2025-05-13 09:24 | DVH ---
Exam: XY KUB ABDOMEN SINGLE VIEW Indication: sbo Comparison: None Technique: 1 radiographic views of the abdomen. Findings: Enteric catheter in satisfactory position Abnormal nonspecific bowel-gas pattern possibly representing small bowel obstruction. There is no definite evidence for pneumoperitoneum. No abnormal calcifications noted. Impression: Enteric catheter in satisfactory position Abnormal nonspecific bowel-gas pattern possibly representing small bowel obstruction.
[2025-05-13] MEDS: PANTOPRAZOLE 40 MG/10 ML VIAL INJ IV SCH (09:45)
[2025-05-13 09:48] LABS: Basophils # (auto) 0 10 ^3/uL (0-0.2); Basophils % (auto) 0.2 % (0.0-2.0); Eosinophils # (auto) 0.1 10 ^3/uL (0-0.8); Eosinophils % (auto) 1.1 % (0.0-7.0); Hematocrit 34.7 % (36.0-46.0); Hemoglobin 12.2 g/dL (12.2-16.2); Lymphocytes # (auto) 0.9 10 ^3/uL (0.4-5.4); Lymphocytes % (auto) 16.6 % (10.0-50.0); Mean Corpuscular Hemoglobin 32.3 pg (28.0-32.0); Mean Corpuscular Hgb Conc. 35.1 g/dL (32.0-36.0); Mean Corpuscular Volume 92.1 fL (80.0-100.0); Monocytes # (auto) 0.4 10 ^3/uL (0-1.3); Neutrophils # (auto) 4.3 10 ^3/uL (1.6-8.6); Neutrophils % (auto) 75.1 % (37.0-80.0); Nucleated Red Blood Cells % 0.2 %; Platelet Count (auto) 187 10^3/uL (140-450); Red Blood Cells 3.77 10^6/uL (4.0-5.20); Red Cell Distribution Width 12.7 % (11.8-14.3); White Blood Cell 5.7 10^3/uL (4.4-10.8)
[2025-05-13 10:02] LABS: Chloride 103 mmol/L (98-107); Sodium 141 mmol/L (136-145)
[2025-05-13 10:03] LABS: Anion Gap 11 (5-15); Carbon Dioxide 27 mmol/L (20-31)
[2025-05-13 10:04] LABS: Calcium 8.7 mg/dL (8.7-10.4)
[2025-05-13] MEDS ORDERED: ESCI5TAB PO (10:07)
[2025-05-13 10:09] LABS: BUN/Creatinine Ratio 14.1 (10.0-20.0); Blood Urea Nitrogen 9 mg/dL (9-23)
[2025-05-13 10:10] LABS: Glucose 114 mg/dL (74-106); Potassium 3.2 mmol/L (3.5-5.1)
--- NOTE | 2025-05-13 10:26 | DVHPN2 ---
Progress Note Date Seen: May 13, 2025 Medical Necessity Reason Pt with a Central, PICC or Fol: No Subjective Patient reports: No new complaints Review of Systems: HEENT:Normal, CVS:Normal, RESPIRATORY:Normal, GI:Normal, :Normal, MSK:Normal, NEURO:Normal Objective vital signs Vital Sign Date Time Temp Pulse Resp B/P (MAP) Pulse Ox O2 Delivery O2 Flow Rate FiO2 05/13/25 09:00 97.0 67 17 146/63 (90) 98 97.0 05/13/25 08:10 Room Air* 0 21 Total Intake and Output 05/12/25 05/12/25 05/13/25 15:00 23:00 07:00 Intake Total 1421 ml 350 ml Balance 1421 ml 350 ml medications Current Medications Medications Dose Ordered Sig/Aayush Route Start Time Stop Time Status Last Admin Dose Admin Sodium Chloride 1,000 ml @ 75 mls/hr [id number] IV 05/12/25 12:00 05/13/25 02:05 75 MLS/HR Pantoprazole Sodium 40 mg DAILY IV 05/13/25 10:00 05/13/25 09:45 40 MG Morphine Sulfate 1 mg Q4HP PRN IV 05/12/25 15:30 Acetaminophen/ Hydrocodone Bitart 1 tab Q6HPRN PRN PO 05/12/25 15:30 Acetaminophen 650 mg Q6HP PRN PO 05/12/25 15:30 Ondansetron HCl 4 mg Q6HPRN PRN IV 05/12/25 15:30 Diagnostic Test (Pha) 1 strip Q6HR 05/12/25 18:00 05/13/25 05:56 1 STRIP Insulin Human Regular Q6HR SC 05/12/25 18:00 Dextrose 50 ml UD PRN IV 05/12/25 15:30 Hydralazine HCl 10 mg Q6HP PRN IV 05/12/25 15:30 Examination: GENERAL:Normal, HEENT:Normal, NECK:Normal, LUNGS:Normal, CVS:Normal, ABDOMEN:Normal, ABDOMEN:Abnormal (distension), MSK:Normal, SKIN:Normal, NEURO:Normal, :Normal laboratory and microbiology Laboratory Tests 05/13/25 09:20 Test 05/13/25 09:20 Range/Units Serum Glucose 114 H 74-106 mg/dL Problem List/Assessment/Plan Problem List/Assessment/Plan * Abdominal pain with questionable small-bowel obstruction. The patient will have a CAT scan. ng to lcs, npo, surg eval, ivf, sbft and on IV antibiotics. * Diabetes mellitus, for which she will be placed on sliding scale insulin. * Hypertension, for which she will be placed on as-needed hydralazine. * Obesity. * Hyperlipidemia. * Gastroesophageal reflux disease. advance care planning- full code- time spent 19 mins Plan discussed with: Patient My Orders My Orders Orders - RIRI BARR MD Procedure Category Date Status Time Admit ADMIT 05/12/25 Transmitted 11:58 Sodium Chloride 0.9% PHA 05/12/25 In Process 12:00 Ct Ab Pel Wo Con-No CT 05/12/25 Resulted Oral Or Iv 11:58 Pantoprazole PHA 05/13/25 In Process (Protonix) 10:00 Ng To Lis CELESTINA 05/12/25 In Process 11:58 Chest Portable XY 05/12/25 Resulted 12:04 Chest Xray 1 View XY 05/12/25 Resulted 14:08 Morphine Sulfate PHA 05/12/25 In Process Injection 15:30 Hydrocodone-Acet PHA 05/12/25 In Process 5/325mg Tab ([place] 15:30 Acetaminophen Tablet PHA 05/12/25 In Process (Tylenol Tablet) 15:30 Ondansetron Hcl PHA 05/12/25 In Process (Zofran) 15:30 Glucose Blood PHA 05/12/25 In Process (Accu-Chek Comfort 18:00 Insulin R (Human) PHA 05/12/25 In Process (Insulin R) 18:00 Dextrose 50% Syringe PHA 05/12/25 In Process 15:30 Clear Liq Diet DIET 05/12/25 Transmitted Dinner Kub Abdomen Single XY 05/13/25 Resulted View 06:00 Hydralazine Injection PHA 05/12/25 In Process (Apresoline Inject 15:30 * Surgical Consult CONS 05/12/25 Transmitted 19:05 Small Bowel Series-W XY 05/13/25 Verified Barium 10:22 Npo (Nothing By DIET 05/13/25 Verified Mouth) Diet Lunch Potassium Chl [place] PHA 05/13/25 Verified KCL 10:30 Clinimix Per Pharmacy PHA 05/13/25 Verified 10:30 Ng To Lcs CELESTINA 05/13/25 Verified 10:22 Levofloxacin Levaquin PHA 05/14/25 Verified 10:00 Levofloxacin Levaquin PHA 05/13/25 Verified 10:30 Metronidazole Ivpb PHA 05/13/25 Verified Flagyl 14:00 Complete Blood Count LAB 05/14/25 Verified 06:00 Comprehensive LAB 05/14/25 Verified Metabolic Panel 06:00 PTPTT LAB 05/14/25 Verified 04:00 Date of Service: May 13, 2025 Billing Provider: RIRI BARR MD Common Visit Codes: [id number] INP/OBS CARE(HIGH) Secondary Visit Codes: [id number] CARE PLAN 30 MINUTES RIRI BARR MD May 13, 2025 10:26
[2025-05-13] MEDS ORDERED: CLINIMIX PER PHARMACY 0 ML IV SCH (10:30)
[2025-05-13] MEDS: levoFLOXacin 500MG 100 ML IV ONE (10:59)
[2025-05-13] MEDS ORDERED: DEXTROSE (50%) 50ML SYRG IV SCH (11:15)
[2025-05-13 11:18] LABS: Urine Bacteria None Seen /hpf (None Seen)
[2025-05-13 11:34] LABS: Urine Blood Negative /uL (Negative); Urine Budding Yeast OCCASIONAL /hpf (None Seen); Urine Clarity Clear (Clear); Urine Color Yellow (Yellow); Urine Hyaline Cast FEW /lpf (0 - 2); Urine Mucus FEW (None Seen); Urine Protein, UAD 1+ (Negative); Urine Specific Gravity 1.039 (1.001-1.035); Urine Squamous Epithelial Cell FEW /hpf (<5); Urine Urobilinogen 3 mg/dL (Negative); Urine WBC 7 /HPF (0-5)
[2025-05-13] MEDS: ACCU-CHEK COMFORT CURVE STRIP VI SCH (11:39)
[2025-05-13] MEDS: InsuLIN REG 1unit/0.01ml Soln (100units/ml) SC SCH (11:40)
[2025-05-13 11:50] LABS: Albumin 3.5 g/dL (3.2-4.8)
[2025-05-13 12:05] LABS: Magnesium 1.7 mg/dL (1.6-2.6)
[2025-05-13] MEDS: metroNIDAZOLE 500MG/100ML 100 ML IV SCH (12:52)
[2025-05-13] MEDS: POTASSIUM CHLORIDE 40 MEQ, LIDOCAINE 1% (LOCAL ANESTH.) 4 ML in SODIUM CHL 0.9% 250 ML IV ONE (14:10)
[2025-05-13] MEDS ORDERED: GASTROGRAFIN 120 ML SOL ONE (14:41)
[2025-05-13] MEDS: LORazepam 2MG/ML-1ML VIAL IV PRN (16:49)
--- NOTE | 2025-05-13 18:46 | DVHINCON2 ---
Consultation - Surgical Date Seen: May 13, 2025 Referring Physician Referring Physician er Reason for Consultation abd distention History of Present Illness History of Present Illness The patient is a 69-year-old lady who has been transferred from [facility] where she initially went with history of abdominal pain, nausea, vomiting, and constipation. The patient was constipated for 5-7 days. The patient was initially sent home, but got readmitted at [facility]. The patient has since had a small-bowel follow-through and has had liquid stool. She denies any significant pain. No history of nausea. No history of vomiting. No history of fever. No history of shortness of breath. No history of dizziness or syncope. Currently she has has an NG tube in place. She is passing some flatus and pasty stool currently. However she still remains bloated and NG tube is putting out bilious drainage. Patient is scheduled for a small-bowel follow-through today. Past Medical/Surgical History Past Medical/Surgical History Hypertension hyperlipidemia Family and Social History Family and Social History Nonsmoker nondrinker Allergies and medications Allergies: Coded Allergies: Penicillins (Unverified Allergy, Unknown, 12/30/21) Home Meds Active Scripts Hctz (Hydrochlorothiazide) 25 Mg Tab, 25 MG PO QAM for 30 Days, #30 TAB 3 Refills Prov:RIRI BARR MD 12/22/24 Reported Medications Escitalopram Oxalate (Lexapro) 5 Mg Tab, 1 TAB PO DAILY, #30 TAB 2 Refills 05/13/25 Cholecalciferol (VITAMIN D3) 2,000 Unit Tab, 52013 TAB PO QWEEKLY, #30 TAB 5 Refills 05/12/25 Atorvastatin Calcium (Lipitor) 10 Mg Tab, 10 MG PO QPM, TAB 12/30/21 Metformin Hydrochloride (Metformin Hcl) 500 Mg Tab, 500 MG PO DAILY, TAB 12/30/21 Losartan Potassium (Losartan Potassium) 25 Mg Tab, 25 MG PO DAILY, TAB 12/30/21 Review of systems Review of Systems: HEENT:Normal, CVS:Normal, RESPIRATORY:Normal, GI:Abnormal (Abdomen is distended NG tube was in place abdomen is nontender), :Normal, MSK:Normal Examination Vital signs Vital Signs Date Time Temp Pulse Resp B/P (MAP) Pulse Ox O2 Delivery O2 Flow Rate FiO2 05/13/25 16:30 97.2 84 18 120/87 (98) 98 97.2 05/13/25 08:10 Room Air* 0 21 Medications Current Medications Medications (Trade) Dose Ordered Sig/Aayush Route PRN Reason Start Time Stop Time Status Last Admin Pantoprazole Sodium (Protonix) 40 mg DAILY IV 05/13/25 10:00 05/13/25 09:45 Amino Acids 0 ml @ 0 mls/hr PER PHARMACY IV 05/13/25 10:30 Levofloxacin/ Dextrose 100 ml @ 100 mls/hr DAILY IV 05/14/25 10:00 Metronidazole 100 ml @ 100 mls/hr Q8HR IV 05/13/25 14:00 05/13/25 12:52 Lorazepam (Ativan Inj) 0.5 mg Q8HP PRN IV ANXIETY 05/13/25 10:45 05/13/25 16:49 Diagnostic Test (Pha) (Accu-Chek Comfort Curve T) 1 strip Q6HR 05/13/25 12:00 Insulin Human Regular (InsuLIN R) FOLLOW SLIDING SCALE Q6HR SC 05/13/25 12:00 Dextrose 50 ml UD IV 05/13/25 11:15 Amino Acids/ Electrolytes/ Dextrose 1,000 ml @ 41 mls/hr DAILY@2200 IV 05/13/25 22:00 Laboratory Labs Test 05/13/25 16:29 05/13/25 11:13 05/13/25 09:20 05/12/25 15:42 Range/Units POC Glucose 105 70-106 mg/dl Urine Color Yellow Yellow Urine Clarity Clear Clear Urine pH 6.0 5.0-9.0 Urine Specific [place] 1.039 H 1.001-1.035 Urine Protein 1+ H Negative Urine Ketones 4+ H Negative Urine Blood Negative Negative /uL Urine Nitrite Negative Negative Urine Bilirubin 1+ H Negative Urine Urobilinogen 3 H Negative mg/dL Urine Leukocyte Esterase 1+ Negative /uL Urine RBC 2 0 - 4 /hpf Urine Microscopic WBC 7 H 0-5 /HPF Urine Squamous Epithelial Cells Few <5 /hpf Urine Bacteria None seen None Seen /hpf Urine Hyaline Casts Few 0 - 2 /lpf Urine Mucus Few None Seen Urine Yeast (Budding) Occasional None Seen /hpf Urine Glucose Normal Normal mg/dL White Blood Count 5.7 4.4-10.8 10^3/uL Red Blood Count 3.77 L 4.0-5.20 10^6/uL Hemoglobin 12.2 12.2-16.2 g/dL Hematocrit 34.7 L 36.0-46.0 % Mean Corpuscular Volume 92.1 80.0-100.0 fL Mean Corpuscular Hemoglobin 32.3 H 28.0-32.0 pg Mean Corpuscular Hemoglobin Concent 35.1 32.0-36.0 g/dL Red Cell Distribution Width 12.7 11.8-14.3 % Platelet Count 187 140-450 10^3/uL Mean Platelet Volume 7.0 6.9-10.8 fL Neutrophils (%) (Auto) 75.1 37.0-80.0 % Lymphocytes (%) (Auto) 16.6 10.0-50.0 % Monocytes (%) (Auto) 7.0 0.0-12.0 % Eosinophils (%) (Auto) 1.1 0.0-7.0 % Basophils (%) (Auto) 0.2 0.0-2.0 % Neutrophils # (Auto) 4.3 1.6-8.6 10 ^3/uL Lymphocytes # (Auto) 0.9 0.4-5.4 10 ^3/uL Monocytes # (Auto) 0.4 0-1.3 10 ^3/uL Eosinophils # (Auto) 0.1 0-0.8 10 ^3/uL Basophils # (Auto) 0 0-0.2 10 ^3/uL Nucleated Red Blood Cells 0.2 % Sodium Level 141 136-145 mmol/L Potassium Level 3.2 L 3.5-5.1 mmol/L Chloride Level 103 98-107 mmol/L Carbon Dioxide Level 27 20-31 mmol/L Anion Gap 11 5-15 Blood Urea Nitrogen 9 9-23 mg/dL Creatinine 0.64 0.550-1.02 mg/dL Glomerular Filtration Rate Calc 96 >90 mL/min BUN/Creatinine Ratio 14.1 10.0-20.0 Serum Glucose 114 H 74-106 mg/dL Calcium Level 8.7 8.7-10.4 mg/dL Phosphorus Level 3.0 2.4-5.1 mg/dL Magnesium Level 1.7 1.6-2.6 mg/dL Albumin 3.5 3.2-4.8 g/dL Triglycerides Level 104 < 150 mg/dL Hemoglobin A1c 5.8 H <5.7 % A1C Total Bilirubin 0.7 0.2-1.0 mg/dL Aspartate Amino Transferase (AST) 21 <34 U/L Alanine Aminotransferase (ALT) 15 7-40 U/L Alkaline Phosphatase 54 46-116 U/L Total Protein 6.2 5.7-8.2 g/dL xam: CT CT AB PEL WO CON-NO ORAL OR IV History: abd pain Comparison Study: CT abdomen and pelvis 05/08/2025 report only. TECHNIQUE: Multidetector CT of the abdomen and pelvis without IV contrast. Axial, coronal and sagittal multiplanar reformats were obtained from the axial data set by the technologist. Radiation Dose Information: CT Dose: CTDI volume is 24.62 mGy. Dose-length product is 1428.4 mGy*cm FINDINGS: Small right-sided pleural effusion with bibasilar atelectasis. Partially visualized heart is unremarkable. Small hepatic cysts, largest measuring up to 3.2 cm. Otherwise, liver, spleen pancreas and adrenal glands are unremarkable. Kidneys, ureters and decompressed urinary bladder unremarkable. Adnexa unremarkable. Enteric tube is noted terminating within the stomach. Stomach is unremarkable. Proximal and mid small bowel loops are fluid-filled and mildly distended measuring up to 3.7 cm. Diluted contrast is noted within the distal small bowel loops with contrast noted within the colon extending from the cecum to the rectum. Appendix is unremarkable. Mild wall thickening of the ascending colon descending colon and sigmoid. Descending colon and Sigmoid diverticulosis without diverticulitis. No evidence of intraperitoneal free air. Small amount of free fluid within the pelvis. No evidence of aortic aneurysm. [id number] atherosclerotic calcification of the aorta. No significant lymphadenopathy. Tiny fat containing umbilical hernia. There is lateral and posterior body wall edema. Small fat containing bilateral inguinal hernias. Partial fusion of T8 and T9 vertebral bodies IMPRESSION: Filled small bowel loops with distention of the proximal and mid small bowel loops up to 3.7 cm. Correlate for ileus versus partial bowel obstruction with diluted oral contrast noted within the distal small bowel and contrast noted throughout the large bowel. Mild wall thickening of the ascending colon, descending colon and sigmoid. Correlate for mild colitis. Descending colon and Sigmoid diverticulosis without diverticulitis. Small amount of free fluid within the pelvis which may be associated with the bowel obstruction/ ileus. Small right-sided pleural effusion with bibasilar atelectasis. Examination: GENERAL:Normal, HEENT:Normal, NECK:Normal, LUNGS:Normal, CVS:No rmal, ABDOMEN:Abnormal (Abdomen is distended NG tube was in place abdomen is nontender), MSK:Normal Problem List/Assessment/Plan Problems: (1) Abdominal distention Assessment and Plan Patient with abdominal distention possible small-bowel partial obstruction versus ileus. We will await small-bowel follow-through Continue NG tube, IV fluids, out of bed We will continue to follow Plan discussed with Plan discussed with: Patient Visit Coding Surgery Date of Service if different f: May 13, 2025 Billing Provider: NORIS HASSAN Jr., MD Surgery Visit Codes: 86260 - INP CONSULT <80 MIN NORIS HASSAN Jr., MD May 13, 2025 18:46
[2025-05-13] MEDS: AMINO ACID INFUSION IN D10W 1,000 ML IV SCH (21:56)
[2025-05-14] VITALS (7 sets, daily range): BP systolic 113–163; BP diastolic 45–95; PULSE 66–81; RESP 17–19; TEMP 96.4–98.8; O2SAT 95–98
--- NOTE | 2025-05-14 03:26 | DVH ---
Procedure: XY SMALL BOWEL SERIES-W GASTROGRA Exam Date: 05/13/2025 04:53 PM Reason for study/Clinical History: sbo Comparison Study: None Technique: Single contrast small bowel series performed. Findings: DIffusely dilated loops of small bowel with no contrast seen in colon at 2 hours. IMPRESSION: DIffusely dilated loops of small bowel with no contrast seen in colon at 2 hours. Findings could rep resent SBO END IMPRESSION:
[2025-05-14 06:52] LABS: Basophils # (auto) 0 10 ^3/uL (0-0.2); Basophils % (auto) 0.1 % (0.0-2.0); Eosinophils # (auto) 0.1 10 ^3/uL (0-0.8); Eosinophils % (auto) 1.4 % (0.0-7.0); Hematocrit 36.5 % (36.0-46.0); Hemoglobin 13.1 g/dL (12.2-16.2); Lymphocytes # (auto) 1.2 10 ^3/uL (0.4-5.4); Lymphocytes % (auto) 18.2 % (10.0-50.0); Mean Corpuscular Hemoglobin 32.6 pg (28.0-32.0); Mean Corpuscular Hgb Conc. 35.8 g/dL (32.0-36.0); Mean Corpuscular Volume 91.2 fL (80.0-100.0); Monocytes # (auto) 0.4 10 ^3/uL (0-1.3); Monocytes % (auto) 6.2 % (0.0-12.0); Neutrophils # (auto) 4.9 10 ^3/uL (1.6-8.6); Neutrophils % (auto) 74.1 % (37.0-80.0); Nucleated Red Blood Cells % 0.1 %; Platelet Count (auto) 180 10^3/uL (140-450); Red Cell Distribution Width 12.7 % (11.8-14.3); White Blood Cell 6.7 10^3/uL (4.4-10.8)
[2025-05-14 06:53] LABS: INR 1.18 (0.9-1.15); Partial Thromboplastin Time 29.1 SEC (24.5-34.5); Prothrombin Time 12.3 sec (9.3-11.8)
[2025-05-14 06:56] LABS: Alanine Aminotransferase 12 U/L (7-40); Albumin 3.4 g/dL (3.2-4.8); Alkaline Phosphatase 51 U/L (46-116); Anion Gap 11 (5-15); Aspartate Aminotransferase 15 U/L (<34); BUN/Creatinine Ratio 12.5 (10.0-20.0); Bilirubin, Total 0.5 mg/dL (0.2-1.0); Blood Urea Nitrogen 8 mg/dL (9-23); Calcium 8.3 mg/dL (8.7-10.4); Carbon Dioxide 28 mmol/L (20-31); Chloride 103 mmol/L (98-107); Glucose 128 mg/dL (74-106); Magnesium 1.9 mg/dL (1.6-2.6); Phosphorus 2.9 mg/dL (2.4-5.1); Potassium 3.5 mmol/L (3.5-5.1); Sodium 142 mmol/L (136-145)
--- NOTE | 2025-05-14 10:38 | DVHPN2 ---
Progress Note Date Seen: May 14, 2025 Medical Necessity Reason Pt with a Central, PICC or Fol: No Subjective Patient reports: No new complaints Review of Systems: HEENT:Normal, CVS:Normal, RESPIRATORY:Normal, GI:Normal, :Normal, MSK:Normal, NEURO:Normal Objective vital signs Vital Sign Date Time Temp Pulse Resp B/P (MAP) Pulse Ox O2 Delivery O2 Flow Rate FiO2 05/14/25 08:47 96.4 66 17 156/76 (102) 96 96.4 05/13/25 19:30 Room Air* 0 21 Total Intake and Output 05/13/25 05/13/25 05/14/25 15:00 23:00 07:00 Intake Total 200 ml 500 ml Output Total 1725 ml 1350 ml Balance 200 ml -1225 ml -1350 ml medications Current Medications Medications Dose Ordered Sig/Aayush Route Start Time Stop Time Status Last Admin Dose Admin Sodium Chloride 1,000 ml @ 75 mls/hr [id number] IV 05/12/25 12:00 05/14/25 04:02 75 MLS/HR Pantoprazole Sodium 40 mg DAILY IV 05/13/25 10:00 05/14/25 09:50 40 MG Morphine Sulfate 1 mg Q4HP PRN IV 05/12/25 15:30 Acetaminophen/ Hydrocodone Bitart 1 tab Q6HPRN PRN PO 05/12/25 15:30 Acetaminophen 650 mg Q6HP PRN PO 05/12/25 15:30 Ondansetron HCl 4 mg Q6HPRN PRN IV 05/12/25 15:30 Diagnostic Test (Pha) 1 strip Q6HR 05/12/25 18:00 05/14/25 05:37 1 STRIP Insulin Human Regular Q6HR SC 05/12/25 18:00 05/14/25 05:35 2 UNITS Dextrose 50 ml UD PRN IV 05/12/25 15:30 Hydralazine HCl 10 mg Q6HP PRN IV 05/12/25 15:30 Amino Acids 0 ml @ 0 mls/hr PER PHARMACY IV 05/13/25 10:30 Levofloxacin/ Dextrose 100 ml @ 100 mls/hr DAILY IV 05/14/25 10:00 Metronidazole 100 ml @ 100 mls/hr Q8HR IV 05/13/25 14:00 05/14/25 05:33 100 MLS/HR Lorazepam 0.5 mg Q8HP PRN IV 05/13/25 10:45 05/13/25 16:49 0.5 MG Diagnostic Test (Pha) 1 strip Q6HR 05/13/25 12:00 05/14/25 05:36 1 STRIP Insulin Human Regular FOLLOW SLIDING SCALE Q6HR SC 05/13/25 12:00 Dextrose 50 ml UD IV 05/13/25 11:15 Amino Acids/ Electrolytes/ Dextrose 1,000 ml @ 41 mls/hr DAILY@2200 IV 05/13/25 22:00 05/13/25 21:56 41 MLS/HR Examination: GENERAL:Normal, HEENT:Normal, NECK:Normal, LUNGS:Normal, CVS:Normal, ABDOMEN:Normal, ABDOMEN:Abnormal (ng tube, distension), MSK:Normal, SKIN:Normal, NEURO:Normal, :Normal laboratory and microbiology Laboratory Tests 05/14/25 05:54 Test 05/14/25 05:54 Range/Units Serum Glucose 128 H 74-106 mg/dL Problem List/Assessment/Plan Problem List/Assessment/Plan * Abdominal pain with questionable small-bowel obstruction. The patient will have a CAT scan. ng to lcs, npo, surg eval, ivf, sbft and on IV antibiotics * Diabetes mellitus, for which she will be placed on sliding scale insulin. * Hypertension, for which she will be placed on as-needed hydralazine. * Obesity. * Hyperlipidemia. * Gastroesophageal reflux disease. * nutrition: tpn advance care planning- full code- time spent 19 mins Plan discussed with: Patient, Spouse My Orders My Orders Orders - RIRI BARR MD Procedure Category Date Status Time Lorazepam 2mg/Ml Inj PHA 05/13/25 In Process (Ativan Inj) 10:45 Glucose Blood PHA 05/13/25 In Process (Accu-Chek Comfort 12:00 Insulin R (Human) PHA 05/13/25 In Process (Insulin R) 12:00 Dextrose 50% Syringe PHA 05/13/25 In Process 11:15 Amino Acid Infusion PHA 05/13/25 In Process In D10w (Clinimix 4. 22:00 Clinimix Per Pharmacy [facility] 05/13/25 In Process 22:00 * Picc Line Consult CONS 05/14/25 Transmitted 10:26 Date of Service: May 14, 2025 Billing Provider: RIRI BRAR MD Common Visit Codes: [id number] INP/OBS CARE(HIGH) RIRI BARR MD May 14, 2025 10:38
[2025-05-14] MEDS ORDERED: TPN PER PHARMACY 0 ML IV SCH (10:45)
[2025-05-14] MEDS: ACCU-CHEK COMFORT CURVE STRIP VI SCH (11:59)
[2025-05-14] MEDS: InsuLIN REG 1unit/0.01ml Soln (100units/ml) SC SCH (11:59)
--- NOTE | 2025-05-14 12:40 | DVHPN2 ---
Progress Note Date Seen: May 14, 2025 Medical Necessity Reason Pt with a Central, PICC or Fol: No Objective vital signs Vital Sign Date Time Temp Pulse Resp B/P (MAP) Pulse Ox O2 Delivery O2 Flow Rate FiO2 05/14/25 08:47 96.4 66 17 156/76 (102) 96 96.4 05/13/25 19:30 Room Air* 0 21 Total Intake and Output 05/13/25 05/13/25 05/14/25 15:00 23:00 07:00 Intake Total 200 ml 500 ml Output Total 1725 ml 1350 ml Balance 200 ml -1225 ml -1350 ml medications Current Medications Medications Dose Ordered Sig/Aayush Route Start Time Stop Time Status Last Admin Dose Admin Sodium Chloride 1,000 ml @ 75 mls/hr [id number] IV 05/12/25 12:00 05/14/25 04:02 75 MLS/HR Pantoprazole Sodium 40 mg DAILY IV 05/13/25 10:00 05/14/25 09:50 40 MG Morphine Sulfate 1 mg Q4HP PRN IV 05/12/25 15:30 Acetaminophen/ Hydrocodone Bitart 1 tab Q6HPRN PRN PO 05/12/25 15:30 Acetaminophen 650 mg Q6HP PRN PO 05/12/25 15:30 Ondansetron HCl 4 mg Q6HPRN PRN IV 05/12/25 15:30 Dextrose 50 ml UD PRN IV 05/12/25 15:30 Hydralazine HCl 10 mg Q6HP PRN IV 05/12/25 15:30 Levofloxacin/ Dextrose 100 ml @ 100 mls/hr DAILY IV 05/14/25 10:00 Metronidazole 100 ml @ 100 mls/hr Q8HR IV 05/13/25 14:00 05/14/25 05:33 100 MLS/HR Lorazepam 0.5 mg Q8HP PRN IV 05/13/25 10:45 05/13/25 16:49 0.5 MG Amino Acids 0 ml @ 0 mls/hr PER PHARMACY IV 05/14/25 10:45 Insulin Human Regular FOLLOW SLIDING SCALE Q6HR SC 05/14/25 12:00 Diagnostic Test (Pha) 1 strip Q6HR 05/14/25 12:00 05/14/25 11:59 1 STRIP Fat Emulsion Intravenous 50 ml/ Potassium Chloride 10 meq/ Potassium Phosphate 11 meq/ Calcium Gluconate 2.3 meq/Magnesium Sulfate 6 meq/ Multivitamins 10 ml/Chromium/ Copper/Manganese/ Zinc 1 ml/Amino Acids/Dextrose 924.9462 ml @ 38 mls/hr [id number] IV 05/14/25 22:00 05/15/25 21:59 laboratory and microbiology Laboratory Tests 05/14/25 05:54 Test 05/14/25 05:54 Range/Units Serum Glucose 128 H 74-106 mg/dL Problem List/Assessment/Plan Problem List/Assessment/Plan 05/14/[age] year old female with no prior abdominal operations, without evidence of inguinal,femoral or abdominal wall herniation, has history of chronic obstipation and has had abdominal pain for,about a week prior to presenting here with a small bowel dilatation and inability to pass flatus or stool. Gastrografin small bowel follow through shows dilated small bowel and no contrast in the colon. Her abdomen is distended and quiet but, essentially nontender. I do not see a compelling reason to intervene surgically at this moment, her CBC is normal, vital signs are stable and she ism feeling better. I will try IV neostigmine to stimulate bowel activity. Will follow. thoroughly explained to patient and her at bedside. Plan discussed with: Patient, Spouse VENECIA HUI MD May 14, 2025 12:40
[2025-05-14] MEDS: LIDOCAINE 1% (LOCAL ANESTH.) PF 5ml SDV ID ONE (12:45)
--- NOTE | 2025-05-14 15:07 | DVH ---
EXAM: XY CHEST PORTABLE HISTORY: PICC LINE PLACEMENT COMPARISON: XY CHEST XRAY 1 VIEW on DOS: 05/12/25, XY CHEST PORTABLE on DOS: 05/12/25, chest x-ray date d 12/20/2024 TECHNIQUE: Portable AP view of the chest was performed. FINDINGS: There is a new right upper extremity PICC line with its tip in the SVC -RA junction. NG tube tip is i n the stomach about 5 cm distal to the GE junction. No pneumothorax, new infiltrates, or pulmonary ed shaggy. There is stable left lung base scarring. The heart is not enlarged. The central pulmonary arteri es are ectatic. IMPRESSION: 1. Right upper extremity PICC line in good position. 2. Left lung base scarring without evidence of acute intrathoracic process. 3. Pulmonary arterial hypertension.
[2025-05-14] MEDS: levoFLOXacin 500MG 100 ML IV SCH (15:22)
[2025-05-14] MEDS: NEOSTIGMINE 1 MG/ML INJ (10mg/10ML VIAL) IV SCH (16:50)
[2025-05-14] MEDS: SODIUM CHLOR 0.9% PF (SALINE LOCK) 10ML VIAL/SYR IV SCH (22:12)
[2025-05-14] MEDS: TPN PER PHARMACY IV NR (23:00)
[2025-05-15 01:00] VITALS: BP 107/45; PULSE 82; RESP 19; TEMP 97.4; O2SAT 98
[2025-05-15 05:00] VITALS: BP 149/89; PULSE 83; RESP 20; TEMP 97.3; O2SAT 95
[2025-05-15 06:05] LABS: Basophils # (auto) 0 10 ^3/uL (0-0.2); Basophils % (auto) 0.2 % (0.0-2.0); Eosinophils # (auto) 0.1 10 ^3/uL (0-0.8); Hemoglobin 10.2 g/dL (12.2-16.2); Lymphocytes # (auto) 0.9 10 ^3/uL (0.4-5.4); Mean Corpuscular Hemoglobin 33.2 pg (28.0-32.0); Monocytes # (auto) 0.3 10 ^3/uL (0-1.3); Neutrophils # (auto) 4.9 10 ^3/uL (1.6-8.6); Nucleated Red Blood Cells % 0.1 %; Red Blood Cells 3.06 10^6/uL (4.0-5.20); Red Cell Distribution Width 13.9 % (11.8-14.3)
[2025-05-15 06:10] LABS: Eosinophils % (auto) 1.4 % (0.0-7.0); Hematocrit 31.6 % (36.0-46.0); Lymphocytes % (auto) 13.9 % (10.0-50.0); Mean Corpuscular Hgb Conc. 32.2 g/dL (32.0-36.0); Mean Corpuscular Volume 103.2 fL (80.0-100.0); Monocytes % (auto) 4.7 % (0.0-12.0); Neutrophils % (auto) 79.8 % (37.0-80.0); Platelet Count (auto) 146 10^3/uL (140-450); White Blood Cell 6.2 10^3/uL (4.4-10.8)
--- NOTE | 2025-05-15 08:51 | DVH ---
Exam: US US GUIDED VASCULAR ACCESS Clinical History: picc line placement Comparison: None Technique: Targeted sonographic evaluation of the right arm vein was obtained utilizing grayscale and color Dopp ler imaging. Findings/Impression: Sonographic assistance for PICC line placement. Please refer to procedural report for detailed findin gs.
[2025-05-15 09:00] VITALS: BP 152/89; PULSE 78; RESP 18; TEMP 96.7; O2SAT 96
--- NOTE | 2025-05-15 09:37 | DVH ---
Exam: XY KUB ABDOMEN SINGLE VIEW Indication: sbo Comparison: XY KUB ABDOMEN SINGLE VIEW on DOS: 05/13/25 Technique: 1 radiographic views of the abdomen. Findings: Nonspecific bowel-gas pattern There is no definite evidence for pneumoperitoneum. No abnormal calcifications noted. Impression: Nonspecific bowel-gas pattern.
[2025-05-15] MEDS: FLEET MINERAL OIL ENEMA 133 ML PR ONE (10:15)
--- NOTE | 2025-05-15 10:21 | DVHPN2 ---
Progress Note Date Seen: May 15, 2025 Medical Necessity Reason Pt with a Central, PICC or Fol: No Objective vital signs Vital Sign Date Time Temp Pulse Resp B/P (MAP) Pulse Ox O2 Delivery O2 Flow Rate FiO2 05/15/25 09:00 96.7 78 18 152/89 (110) 96 96.7 05/14/25 20:00 Room Air* 0 21 Total Intake and Output 05/14/25 05/14/25 05/15/25 15:00 23:00 07:00 Intake Total 275 ml 875 ml Output Total 150 ml Balance 125 ml 875 ml medications Current Medications Medications Dose Ordered Sig/Aayush Route Start Time Stop Time Status Last Admin Dose Admin Sodium Chloride 1,000 ml @ 75 mls/hr [id number] IV 05/12/25 12:00 05/15/25 06:07 75 MLS/HR Pantoprazole Sodium 40 mg DAILY IV 05/13/25 10:00 05/15/25 09:30 40 MG Morphine Sulfate 1 mg Q4HP PRN IV 05/12/25 15:30 Acetaminophen/ Hydrocodone Bitart 1 tab Q6HPRN PRN PO 05/12/25 15:30 Acetaminophen 650 mg Q6HP PRN PO 05/12/25 15:30 Ondansetron HCl 4 mg Q6HPRN PRN IV 05/12/25 15:30 Dextrose 50 ml UD PRN IV 05/12/25 15:30 Hydralazine HCl 10 mg Q6HP PRN IV 05/12/25 15:30 Levofloxacin/ Dextrose 100 ml @ 100 mls/hr DAILY IV 05/14/25 10:00 05/15/25 09:30 100 MLS/HR Metronidazole 100 ml @ 100 mls/hr Q8HR IV 05/13/25 14:00 05/15/25 05:52 100 MLS/HR Lorazepam 0.5 mg Q8HP PRN IV 05/13/25 10:45 05/14/25 18:23 0.5 MG Amino Acids 0 ml @ 0 mls/hr PER PHARMACY IV 05/14/25 10:45 Insulin Human Regular FOLLOW SLIDING SCALE Q6HR SC 05/14/25 12:00 05/15/25 06:22 4 UNITS Diagnostic Test (Pha) 1 strip Q6HR 05/14/25 12:00 05/15/25 05:53 1 STRIP Fat Emulsion Intravenous 50 ml/ Potassium Chloride 10 meq/ Potassium Phosphate 11 meq/ Calcium Gluconate 2.3 meq/Magnesium Sulfate 6 meq/ Multivitamins 10 ml/Chromium/ Copper/Manganese/ Zinc 1 ml/Amino Acids/Dextrose 924.9462 ml @ 38 mls/hr [id number] IV 05/14/25 22:00 05/15/25 21:59 05/14/25 23:00 38 MLS/HR Neostigmine Methylsulfate 0.5 mg Q4HR IV 05/14/25 14:00 05/15/25 09:30 0.5 MG Sodium Chloride 10 ml QSHIFT@10,22 IV 05/14/25 22:00 05/15/25 09:31 10 ML laboratory and microbiology Laboratory Tests 05/15/25 05:04 Test 05/15/25 07:56 Range/Units Serum Glucose Pending Problem List/Assessment/Plan Problem List/Assessment/Plan 05/14/[age] year old female with no prior abdominal operations, without evidence of inguinal,femoral or abdominal wall herniation, has history of chronic obstipation and has had abdominal pain for,about a week prior to presenting here with a small bowel dilatation and inability to pass flatus or stool. Gastrografin small bowel follow through shows dilated small bowel and no contrast in the colon. Her abdomen is distended and quiet but, essentially nontender. I do not see a compelling reason to intervene surgically at this moment, her CBC is normal, vital signs are stable and she ism feeling better. I will try IV neostigmine to stimulate bowel activity. Will follow. thoroughly explained to patient and her at bedside. 05/15/25 feels much better, had five bowel movements dince Neostigmine administered. abdomen soft, non tender. will administer golytely via NGT and then remove NGT. Plan discussed with: Patient VENECIA HUI MD May 15, 2025 10:21
[2025-05-15 11:27] LABS: Anion Gap 9 (5-15)
[2025-05-15 11:33] LABS: BUN/Creatinine Ratio 12.9 (10.0-20.0)
[2025-05-15 11:37] LABS: Alanine Aminotransferase 13 U/L (7-40); Albumin 3.3 g/dL (3.2-4.8); Alkaline Phosphatase 45 U/L (46-116); Aspartate Aminotransferase 14 U/L (<34); Bilirubin, Total 0.5 mg/dL (0.2-1.0); Blood Urea Nitrogen 8 mg/dL (9-23); Carbon Dioxide 26 mmol/L (20-31); Chloride 106 mmol/L (98-107); Glucose 215 mg/dL (74-106); Magnesium 1.6 mg/dL (1.6-2.6); Sodium 141 mmol/L (136-145); Total Protein 5.4 g/dL (5.7-8.2)
--- NOTE | 2025-05-15 11:54 | DVHPN2 ---
Subjective states abdominal pain is better Changes from previous H/P or p: No Changes Objective Vitals Vital Signs Date Time Temp Pulse Resp B/P (MAP) Pulse Ox O2 Delivery O2 Flow Rate FiO2 05/15/25 09:00 96.7 78 18 152/89 (110) 96 96.7 05/15/25 08:08 Room Air* 0 21 Intake/Output Intake and Output 05/15/25 07:00 Intake Total 1150 ml Output Total 150 ml Balance 1000 ml Intake Oral 0 ml IV Total 1150 ml Output Gastric Drainage Total 150 ml # Voids 5 # Bowel Movements 5 General Appearance: Alert, Oriented X3, Cooperative, No acute distress Cardiovascular: Regular rate, Normal S1, Normal S2 Abdomen: Normal bowel sounds, Soft, No tenderness Musculoskeletal: Normal sensory function, Normal motor function Neuro: Normal speech, Strength at 5/5 X4 ext Psych/Mental Status: Mental status NL Medications Current Medications Medications Dose Ordered Sig/Aayush Route Start Time Stop Time Status Last Admin Dose Admin Sodium Chloride 1,000 ml @ 75 mls/hr [id number] IV 05/12/25 12:00 05/15/25 06:07 75 MLS/HR Pantoprazole Sodium 40 mg DAILY IV 05/13/25 10:00 05/15/25 09:30 40 MG Morphine Sulfate 1 mg Q4HP PRN IV 05/12/25 15:30 Acetaminophen/ Hydrocodone Bitart 1 tab Q6HPRN PRN PO 05/12/25 15:30 Acetaminophen 650 mg Q6HP PRN PO 05/12/25 15:30 Ondansetron HCl 4 mg Q6HPRN PRN IV 05/12/25 15:30 Dextrose 50 ml UD PRN IV 05/12/25 15:30 Hydralazine HCl 10 mg Q6HP PRN IV 05/12/25 15:30 Levofloxacin/ Dextrose 100 ml @ 100 mls/hr DAILY IV 05/14/25 10:00 05/15/25 09:30 100 MLS/HR Metronidazole 100 ml @ 100 mls/hr Q8HR IV 05/13/25 14:00 05/15/25 05:52 100 MLS/HR Lorazepam 0.5 mg Q8HP PRN IV 05/13/25 10:45 05/14/25 18:23 0.5 MG Amino Acids 0 ml @ 0 mls/hr PER PHARMACY IV 05/14/25 10:45 Insulin Human Regular FOLLOW SLIDING SCALE Q6HR SC 05/14/25 12:00 05/15/25 06:22 4 UNITS Diagnostic Test (Pha) 1 strip Q6HR 05/14/25 12:00 05/15/25 05:53 1 STRIP Fat Emulsion Intravenous 50 ml/ Potassium Chloride 10 meq/ Potassium Phosphate 11 meq/ Calcium Gluconate 2.3 meq/Magnesium Sulfate 6 meq/ Multivitamins 10 ml/Chromium/ Copper/Manganese/ Zinc 1 ml/Amino Acids/Dextrose 924.9462 ml @ 38 mls/hr [id number] IV 05/14/25 22:00 05/15/25 21:59 05/14/25 23:00 38 MLS/HR Neostigmine Methylsulfate 0.5 mg Q4HR IV 05/14/25 14:00 05/15/25 09:30 0.5 MG Sodium Chloride 10 ml QSHIFT@ IV 05/14/25 22:00 05/15/25 09:31 10 ML Mineral Oil 30 ml BID GT 05/15/25 22:00 Laboratory Results Laboratory Tests 05/15/25 05:04 05/15/25 11:09 Chemistry Test 05/15/25 11:09 Albumin 3.3 g/dL (3.2-4.8) Calcium Level 8.0 mg/dL (8.7-10.4) L Magnesium Level 1.6 mg/dL (1.6-2.6) Phosphorus Level 2.0 mg/dL (2.4-5.1) L Total Protein 5.4 g/dL (5.7-8.2) L LFT Test 05/15/25 11:09 Alanine Aminotransferase (ALT) 13 U/L (7-40) Alkaline Phosphatase 45 U/L (46-116) L Aspartate Amino Transferase (AST) 14 U/L (<34) Total Bilirubin 0.5 mg/dL (0.2-1.0) Urinalysis Test 05/13/25 11:13 Urine Color Yellow (Yellow) Urine Clarity Clear (Clear) Urine pH 6.0 (5.0-9.0) Urine Specific [place] 1.039 (1.001-1.035) Urine Protein 1+ (Negative) H Urine Ketones 4+ (Negative) H Urine Blood Negative /uL (Negative) Urine Nitrite Negative (Negative) Urine Bilirubin 1+ (Negative) H Urine Urobilinogen 3 mg/dL (Negative) H Urine Leukocyte Esterase 1+ /uL (Negative) Urine RBC 2 /hpf (0 - 4) Urine Microscopic WBC 7 /HPF (0-5) H Urine Squamous Epithelial Cells Few /hpf (<5) Urine Bacteria None seen /hpf (None Seen) Urine Hyaline Casts Few /lpf (0 - 2) Urine Mucus Few (None Seen) Urine Yeast (Budding) Occasional /hpf (None Urine Glucose Normal mg/dL (Normal) Assessment/Plan Assessment/Plan ileus- resolving/surgery help appreciated/normal colonoscopy 2020/if continues to make progress dc ng and start clears obesity chronic anxiety borderline dm- dc meds/dm related orders Plan discussed with: Patient, Other Date of Service: May 15, 2025 Billing Provider: MIROSLAVA COLLAZO MD Common Visit Codes: [id number] INP/OBS CARE(MOD) MIROSLAVA COLLAZO MD May 15, 2025 11:54
[2025-05-15 12:33] VITALS: BP 142/86; PULSE 84; RESP 18; TEMP 97.1; O2SAT 97
[2025-05-15] MEDS: CATHFLO ACTIVASE (ALTEPLASE) 2 MG VIAL IV ONE (13:05)
[2025-05-15] MEDS: GOLYTELY 4L KIT PO ONE (13:45)
[2025-05-15] MEDS: MAGNESIUM SULFATE 1GM/100ML 100 ML IV SCH (15:23)
[2025-05-15 16:44] VITALS: BP 155/89; PULSE 110; RESP 18; TEMP 99.4; O2SAT 95
[2025-05-15] MEDS: POTASSIUM PHOSPHATE 44 MEQ in D5W 5% 250 ML IV ONE (18:01)
[2025-05-15 21:00] VITALS: BP 128/73; PULSE 88; RESP 16; TEMP 97.4; O2SAT 99
[2025-05-15] MEDS: MINERAL OIL 30 ML GT SCH (21:44)
[2025-05-16] VITALS (8 sets, daily range): BP systolic 124–154; BP diastolic 50–76; PULSE 76–84; RESP 17–19; TEMP 97.9–98.7; O2SAT 93–97
[2025-05-16 07:26] LABS: Potassium 3.2 mmol/L (3.5-5.1)
[2025-05-16 07:31] LABS: Albumin 3.6 g/dL (3.2-4.8); BUN/Creatinine Ratio 10.8 (10.0-20.0)
[2025-05-16 07:33] LABS: Phosphorus 3.4 mg/dL (2.4-5.1)
--- NOTE | 2025-05-16 10:50 | DVHPN2 ---
Progress Note Date Seen: May 16, 2025 Medical Necessity Reason Pt with a Central, PICC or Fol: No Objective vital signs Vital Sign Date Time Temp Pulse Resp B/P (MAP) Pulse Ox O2 Delivery O2 Flow Rate FiO2 05/16/25 08:34 97.9 81 18 138/74 (95) 96 97.9 05/15/25 20:00 Room Air* 0 21 Total Intake and Output 05/15/25 05/15/25 05/16/25 15:00 23:00 07:00 Intake Total 100 ml 300 ml 0 ml Balance 100 ml 300 ml 0 ml medications Current Medications Medications Dose Ordered Sig/Aayush Route Start Time Stop Time Status Last Admin Dose Admin Sodium Chloride 1,000 ml @ 75 mls/hr [id number] IV 05/12/25 12:00 05/15/25 06:07 75 MLS/HR Pantoprazole Sodium 40 mg DAILY IV 05/13/25 10:00 05/16/25 09:58 40 MG Hydralazine HCl 10 mg Q6HP PRN IV 05/12/25 15:30 Levofloxacin/ Dextrose 100 ml @ 100 mls/hr DAILY IV 05/14/25 10:00 05/16/25 09:58 100 MLS/HR Metronidazole 100 ml @ 100 mls/hr Q8HR IV 05/13/25 14:00 05/16/25 06:34 100 MLS/HR Amino Acids 0 ml @ 0 mls/hr PER PHARMACY IV 05/14/25 10:45 Neostigmine Methylsulfate 0.5 mg Q4HR IV 05/14/25 14:00 05/16/25 09:58 0.5 MG Sodium Chloride 10 ml QSHIFT@10,22 IV 05/14/25 22:00 05/16/25 09:59 10 ML Mineral Oil 30 ml BID GT 05/15/25 22:00 05/16/25 09:57 30 ML laboratory and microbiology Laboratory Tests 05/16/25 06:31 05/15/25 05:04 Test 05/16/25 06:31 Range/Units Serum Glucose 119 H 74-106 mg/dL Problem List/Assessment/Plan Problem List/Assessment/Plan 05/14/[age] year old female with no prior abdominal operations, without evidence of inguinal,femoral or abdominal wall herniation, has history of chronic obstipation and has had abdominal pain for,about a week prior to presenting here with a small bowel dilatation and inability to pass flatus or stool. Gastrografin small bowel follow through shows dilated small bowel and no contrast in the colon. Her abdomen is distended and quiet but, essentially nontender. I do not see a compelling reason to intervene surgically at this moment, her CBC is normal, vital signs are stable and she ism feeling better. I will try IV neostigmine to stimulate bowel activity. Will follow. thoroughly explained to patient and her at bedside. 05/15/25 feels much better, had five bowel movements dince Neostigmine administered. abdomen soft, non tender. will administer golytely via NGT and then remove NGT. 05/16/25 MUCH IMPROVED, LABS REVIEWED, ok, ABDOMEN SOFT, NON DISTENDED, NON TENDER, HAVING BOWEL MOVEMENTS, TOLERATING PO INTAKE, WILL SIGN OFF, PLEASE RECALL IF NEEDED Plan discussed with: Patient Dietary Evaluation Review Comments: Advance to CCHO-60 Cardiac diet whem medically feasible Monitor PO intake to meet 75% of needs Expected Outcomes/Goals: gradual wt loss, controlled DM. VENECIA HUI MD May 16, 2025 10:50
--- NOTE | 2025-05-16 12:15 | DVHPN2 ---
Subjective states abdominal pain is better/off of ng tunbe/tolerating clears Changes from previous H/P or p: No Changes Objective Vitals Vital Signs Date Time Temp Pulse Resp B/P (MAP) Pulse Ox O2 Delivery O2 Flow Rate FiO2 05/16/25 08:34 97.9 81 18 138/74 (95) 96 97.9 05/15/25 20:00 Room Air* 0 21 Intake/Output Intake and Output 05/16/25 07:00 Intake Total 400 ml Balance 400 ml Intake Oral 0 ml IV Total 400 ml # Voids 6 # Bowel Movements 4 General Appearance: Alert, Oriented X3, Cooperative, No acute distress Cardiovascular: Regular rate, Normal S1, Normal S2 Abdomen: Normal bowel sounds, Soft, No tenderness Musculoskeletal: Normal sensory function, Normal motor function Neuro: Normal speech, Strength at 5/5 X4 ext Psych/Mental Status: Mental status NL Medications Current Medications Medications Dose Ordered Sig/Aayush Route Start Time Stop Time Status Last Admin Dose Admin Sodium Chloride 1,000 ml @ 75 mls/hr [id number] IV 05/12/25 12:00 05/15/25 06:07 75 MLS/HR Pantoprazole Sodium 40 mg DAILY IV 05/13/25 10:00 05/16/25 09:58 40 MG Hydralazine HCl 10 mg Q6HP PRN IV 05/12/25 15:30 Levofloxacin/ Dextrose 100 ml @ 100 mls/hr DAILY IV 05/14/25 10:00 05/16/25 09:58 100 MLS/HR Metronidazole 100 ml @ 100 mls/hr Q8HR IV 05/13/25 14:00 05/16/25 06:34 100 MLS/HR Amino Acids 0 ml @ 0 mls/hr PER PHARMACY IV 05/14/25 10:45 Neostigmine Methylsulfate 0.5 mg Q4HR IV 05/14/25 14:00 05/16/25 09:58 0.5 MG Sodium Chloride 10 ml QSHIFT@10,22 IV 05/14/25 22:00 05/16/25 09:59 10 ML Mineral Oil 30 ml BID GT 05/15/25 22:00 05/16/25 09:57 30 ML Laboratory Results Laboratory Tests 05/15/25 05:04 05/16/25 06:31 Chemistry Test 05/16/25 06:31 Albumin 3.6 g/dL (3.2-4.8) Calcium Level 9.0 mg/dL (8.7-10.4) Magnesium Level 2.0 mg/dL (1.6-2.6) Phosphorus Level 3.4 mg/dL (2.4-5.1) Urinalysis Test 05/13/25 11:13 Urine Color Yellow (Yellow) Urine Clarity Clear (Clear) Urine pH 6.0 (5.0-9.0) Urine Specific [place] 1.039 (1.001-1.035) Urine Protein 1+ (Negative) H Urine Ketones 4+ (Negative) H Urine Blood Negative /uL (Negative) Urine Nitrite Negative (Negative) Urine Bilirubin 1+ (Negative) H Urine Urobilinogen 3 mg/dL (Negative) H Urine Leukocyte Esterase 1+ /uL (Negative) Urine RBC 2 /hpf (0 - 4) Urine Microscopic WBC 7 /HPF (0-5) H Urine Squamous Epithelial Cells Few /hpf (<5) Urine Bacteria None seen /hpf (None Seen) Urine Hyaline Casts Few /lpf (0 - 2) Urine Mucus Few (None Seen) Urine Yeast (Budding) Occasional /hpf (None Urine Glucose Normal mg/dL (Normal) Labs and/or images reviewed: Labs reviewed by me, Image(s) reviewed by me Assessment/Plan Assessment/Plan ileus- resolving/surgery help appreciated/normal colonoscopy 2020/if continues to make progress dc ng and start clears obesity chronic anxiety hypokalemia replace borderline dm- dc meds/dm related orders-clarified with patient Plan discussed with: Patient My Orders Orders - MIROSLAVA COLLAZO MD Procedure Category Date Status Time Communication Order ORDERS 05/15/25 Transmitted 19:14 Clear Liq Diet DIET 05/16/25 Transmitted Breakfast Basic Metabolic Panel LAB 05/17/25 Verified 04:00 Complete Blood Count LAB 05/17/25 Verified 04:00 Date of Service: May 16, 2025 Billing Provider: MIROSLAVA COLLAZO MD Common Visit Codes: 56582-OBAVETKHUX INP/OBS CARE(MOD) MIROSLAVA COLLAZO MD May 16, 2025 12:15
[2025-05-16] MEDS: POTASSIUM CHL 20MEQ/100ML 100 ML IV ONE (12:27)
[2025-05-17] VITALS (7 sets, daily range): BP systolic 132–144; BP diastolic 50–71; PULSE 74–82; RESP 17–19; TEMP 36.7; O2SAT 94–98
[2025-05-17 07:34] LABS: Basophils # (auto) 0 10 ^3/uL (0-0.2); Basophils % (auto) 0.5 % (0.0-2.0); Eosinophils # (auto) 0.1 10 ^3/uL (0-0.8); Eosinophils % (auto) 2.1 % (0.0-7.0); Hematocrit 33.4 % (36.0-46.0); Hemoglobin 11.6 g/dL (12.2-16.2); Lymphocytes # (auto) 1.7 10 ^3/uL (0.4-5.4); Lymphocytes % (auto) 24.2 % (10.0-50.0); Mean Corpuscular Hemoglobin 31.8 pg (28.0-32.0); Mean Corpuscular Hgb Conc. 34.8 g/dL (32.0-36.0); Mean Corpuscular Volume 91.6 fL (80.0-100.0); Monocytes # (auto) 0.7 10 ^3/uL (0-1.3); Monocytes % (auto) 9.6 % (0.0-12.0); Neutrophils # (auto) 4.4 10 ^3/uL (1.6-8.6); Neutrophils % (auto) 63.6 % (37.0-80.0); Nucleated Red Blood Cells % 0.1 %; Platelet Count (auto) 158 10^3/uL (140-450); Red Blood Cells 3.64 10^6/uL (4.0-5.20); Red Cell Distribution Width 13.1 % (11.8-14.3)
[2025-05-17 07:46] LABS: Chloride 106 mmol/L (98-107); Potassium 3.5 mmol/L (3.5-5.1); Sodium 141 mmol/L (136-145)
[2025-05-17 07:47] LABS: Anion Gap 11 (5-15); Calcium 9.1 mg/dL (8.7-10.4); Carbon Dioxide 24 mmol/L (20-31)
[2025-05-17 07:52] LABS: BUN/Creatinine Ratio 7.6 (10.0-20.0)
[2025-05-17 07:57] LABS: Blood Urea Nitrogen 6 mg/dL (9-23); Glucose 134 mg/dL (74-106)
--- NOTE | 2025-05-17 13:23 | DVHDS2 ---
Discharge Summary Date of Admission May 12, 2025 at 11:22 Date of Discharge: May 17, 2025 Admitting Diagnosis ileus/obstipation resolved Wounds: nil Labs/Diagnostic Data: Laboratory Results Test 05/17/25 06:25 05/16/25 06:31 05/15/25 11:29 05/15/25 11:09 White Blood Count 7.0 10^3/uL (4.4-10.8) Red Blood Count 3.64 10^6/uL (4.0-5.20) Hemoglobin 11.6 g/dL (12.2-16.2) Hematocrit 33.4 % (36.0-46.0) Mean Corpuscular Volume 91.6 fL (80.0-100.0) Mean Corpuscular Hemoglobin 31.8 pg (28.0-32.0) Mean Corpuscular Hemoglobin Concent 34.8 g/dL (32.0-36.0) Red Cell Distribution Width 13.1 % (11.8-14.3) Platelet Count 158 10^3/uL (140-450) Mean Platelet Volume 7.3 fL (6.9-10.8) Neutrophils (%) (Auto) 63.6 % (37.0-80.0) Lymphocytes (%) (Auto) 24.2 % (10.0-50.0) Monocytes (%) (Auto) 9.6 % (0.0-12.0) Eosinophils (%) (Auto) 2.1 % (0.0-7.0) Basophils (%) (Auto) 0.5 % (0.0-2.0) Neutrophils # (Auto) 4.4 10 ^3/uL (1.6-8.6) Lymphocytes # (Auto) 1.7 10 ^3/uL (0.4-5.4) Monocytes # (Auto) 0.7 10 ^3/uL (0-1.3) Eosinophils # (Auto) 0.1 10 ^3/uL (0-0.8) Basophils # (Auto) 0 10 ^3/uL (0-0.2) Nucleated Red Blood Cells 0.1 % Sodium Level 141 mmol/L (136-145) Potassium Level 3.5 mmol/L (3.5-5.1) Chloride Level 106 mmol/L (98-107) Carbon Dioxide Level 24 mmol/L (20-31) Anion Gap 11 (5-15) Blood Urea Nitrogen 6 mg/dL (9-23) Creatinine 0.79 mg/dL (0.550-1.02) Glomerular Filtration Rate Calc 81 mL/min (>90) BUN/Creatinine Ratio 7.6 (10.0-20.0) Serum Glucose 134 mg/dL (74-106) Calcium Level 9.1 mg/dL (8.7-10.4) Estimated GFR () 100 mL/min Estimated GFR (Non- 83 mL/min Phosphorus Level 3.4 mg/dL (2.4-5.1) Magnesium Level 2.0 mg/dL (1.6-2.6) Albumin 3.6 g/dL (3.2-4.8) POC Glucose 212 mg/dl (70-106) Total Bilirubin 0.5 mg/dL (0.2-1.0) Aspartate Amino Transferase (AST) 14 U/L (<34) Alanine Aminotransferase (ALT) 13 U/L (7-40) Alkaline Phosphatase 45 U/L (46-116) Total Protein 5.4 g/dL (5.7-8.2) Test 05/14/25 05:54 05/13/25 11:13 05/13/25 09:20 05/12/25 15:42 Prothrombin Time 12.3 sec (9.3-11.8) Prothrombin Time INR 1.18 (0.9-1.15) Activated Partial Thromboplast Time 29.1 SEC (24.5-34.5) Urine Color Yellow (Yellow) Urine Clarity Clear (Clear) Urine pH 6.0 (5.0-9.0) Urine Specific [place] 1.039 (1.001-1.035) Urine Protein 1+ (Negative) Urine Ketones 4+ (Negative) Urine Blood Negative /uL (Negative) Urine Nitrite Negative (Negative) Urine Bilirubin 1+ (Negative) Urine Urobilinogen 3 mg/dL (Negative) Urine Leukocyte Esterase 1+ /uL (Negative) Urine RBC 2 /hpf (0 - 4) Urine Microscopic WBC 7 /HPF (0-5) Urine Squamous Epithelial Cells Few /hpf (<5) Urine Bacteria None seen /hpf (None Seen) Urine Hyaline Casts Few /lpf (0 - 2) Urine Mucus Few (None Seen) Urine Yeast (Budding) Occasional /hpf (None Urine Glucose Normal mg/dL (Normal) Triglycerides Level 104 mg/dL (< 150) Hemoglobin A1c 5.8 % A1C (<5.7) Other Laboratory Tests 05/17/25 06:25 Brief Hx & Hospital Course: pt was admitted for abdominal pain and constipation /ct showed partial sbo vs ileus pt was seen by surgeon and was treated and patient had multiple bm and was better/pt was discharged home in stable condition Consults/Reason for consult surgery eduardo coker last colonoscopy 2019 Operations or Procedures nil Condition at Discharge: Fair Final Diagnosis/Problems List ileus resolved colitis- resolving chronic constipation- normal colonoscopy 2019 borderline dm on diet Discharge Disposition: Home Discharge Instruct/Medications Diet: Regular Activity: No Restrictions, As Tolerated Follow Up/Referral: pcp in 1-2 weeks Medications: colace 100 mg twice daily for constipation-if needed losartan 25 mg once daily for bp(instead of losartan/hctz)- this was explained to patient before dc lactulose 30 ml twice daily for constipation-if needed lipitor as before vitamin d as before Discharge Statement: "Patient was advised to return to the ER or call 911 if any headaches, dizziness, shortness of breath, chest pain, abdominal pain, bleeding, fevers, or worsening of medical condition. Patient was counseled about treatment plan, medications, possible side effects, patientverbalized understanding. All questions were answered to the best of my ability. This discharge took greater then 30 minutes in planning, reviewing documentation, counseling the patient, and discussing with other team members." ASSESSMENT ASSESSMENT Assessment ileus resolved colitis- resolving chronic constipation- normal colonoscopy 2019 borderline dm on diet Date of Service: May 17, 2025 Billing Provider: MIROSLAVA COLLAZO MD Common Visit Codes: 19408-DKG/OBS DISCH DAY >30min MIROSLAVA COLLAZO MD May 17, 2025 13:23
[2025-05-17] MEDS ORDERED: LOSA-533 PO (13:25)
== END 2025-05-17 16:45 | disposition home or self-care (01) | DRG 392 ==
LOC: CENTRAL 05-12 11:22
PROVIDERS: ADMIT Internal Medicine; ATTEND Internal Medicine
PROC: 02HV33Z Insertion of Infusion Device into Superior Vena Cava, Percutaneous Approach (ICD-10-PCS; principal; 2025-05-14)
PROC: B548ZZA Ultrasonography of Superior Vena Cava, Guidance (ICD-10-PCS; 2025-05-14)
DX: K52.9 Noninfective gastroenteritis and colitis, unspecified (principal); K56.7 Ileus, unspecified; E78.5 Hyperlipidemia, unspecified; I10 Essential (primary) hypertension; E11.9 Type 2 diabetes mellitus without complications; K21.9 Gastro-esophageal reflux disease without esophagitis; E66.9 Obesity, unspecified; Z68.38 Body mass index [BMI] 38.0-38.9, adult; E87.6 Hypokalemia; F41.9 Anxiety disorder, unspecified; Z88.0 Allergy status to penicillin
CPT/HCPCS: 36415; 36569; 71045; 74018; 74176; 74250; 76937; 80048; 80053; 80069; 81001; 82040; 82962; 83036; 83735; 84100; 84478; 85025; 85610; 85730; G0378; J1815; J1956; J2003; J2470; J3480; J3490; J7060

== ENCOUNTER 2025-06-10 09:34 | Outpatient (CLI) | payer OTHER ==
[~2025-06-10 09:34] MED LIST changes: +CHOL20007 PO; +ESCI5TAB PO; -HYDR-4902 PO; -HYDR25TA5 PO; -IBUP-1455 PO; -LOSA-534 PO; -METF-370 PO
[2025-06-10 10:38] LABS: Triglycerides 65 mg/dL (< 150)
[2025-06-10 10:39] LABS: Cholesterol 121 mg/dL (< 200)
[2025-06-10 10:40] LABS: HDL Cholesterol 52 mg/dL (40-59)
== END 2025-06-10 17:00 | disposition home or self-care (01) ==
LOC: LAB 09:34
PROVIDERS: ATTEND Internal Medicine
DX: I10 Essential (primary) hypertension (principal); R73.03 Prediabetes
CPT/HCPCS: 36415; 80061; 82306; 82607; 83036

== ENCOUNTER 2025-09-30 11:22 | Outpatient (CLI) | payer OTHER ==
[2025-09-30 11:45] LABS: Hematocrit 39.0 % (36.0-46.0); Hemoglobin 13.6 g/dL (12.2-16.2); Mean Corpuscular Hemoglobin 32.0 pg (28.0-32.0); Mean Corpuscular Volume 91.6 fL (80.0-100.0); Nucleated Red Blood Cells % 0.1 %
== END 2025-09-30 17:00 | disposition home or self-care (01) ==
LOC: LAB 11:22
PROVIDERS: ATTEND Internal Medicine
DX: E11.21 Type 2 diabetes mellitus with diabetic nephropathy (principal); D64.9 Anemia, unspecified
CPT/HCPCS: 36415; 83036; 85025

== ENCOUNTER 2025-10-17 12:25 | Inpatient (IN) | payer OTHER ==
[~2025-10-17] VITALS: Ht 162.6 cm; Wt 111.8 kg
--- NOTE | 2025-10-17 13:26 | ED.PDOC ---
GI ASSESSMENT HPI Comments 70 y.o female presents to the ED for a chief complaint of constipation. Patient reports last bowel movement was about 1+ week ago, states she is not passing any gas, states she hears a "gurgling noise" and complains of lower abdominal pain. Patient was seen in the past for same complaint and admitted to treat constipation. She denies any vomiting, fever, chills. Chief Complaint: Constipation Time Seen by MD: 13:09 Reviewed Notes: Nurses Notes, Medications, Allergies Allergies: Coded Allergies: Penicillins (Unverified Allergy, Unknown, 12/30/21) Home Meds Active Scripts Losartan Potassium (Losartan Potassium) 25 Mg Tab, 1 TAB PO DAILY, #30 TAB 1 Refill Prov:MIROSLAVA COLLAZO MD 05/17/25 Reported Medications Escitalopram Oxalate (Lexapro) 5 Mg Tab, 1 TAB PO DAILY, #30 TAB 2 Refills 05/13/25 Cholecalciferol (VITAMIN D3) 2,000 Unit Tab, 64645 TAB PO QWEEKLY, #30 TAB 5 Refills 05/12/25 Atorvastatin Calcium (Lipitor) 10 Mg Tab, 10 MG PO QPM, TAB 12/30/21 Losartan Potassium (Losartan Potassium) 25 Mg Tab, 25 MG PO DAILY, TAB 12/30/21 Information Source: Patient Mode of Arrival: Ambulatory Timing: Weeks (1) Duration: Since onset Quality: Aching Vomitus: None Stool: Empty Severity: Moderate Recent: None Recent Hx of: None Pain Location: Suprapubic Modifying Factors: Nothing Associated sign and symptoms: Nausea, Constipation, Abdominal Pain Past Medical History PAST MEDICAL HISTORY: DM, GERD, HTN Surgical History: Denies all surgeries [employer]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 Family History Family History: Reviewed,noncontributory to illness, No family hx of Cancer, No family hx of DM, No family hx of Heart inés, No family hx of HTN, No family hx ofKidney inés, No family hx of Liver inés, No family hx of Lung inés, No family hx of Stroke Social History Smoker: Non-Smoker Alcohol: Denies ETOH Use Drugs: Denies Drug Use Lives In: Home Constitutional: denies: chills, diaphoresis, fatigue, fever, malaise, sweats, weakness, others EENTM: denies: blurred vision, double vision, ear bleeding, ear discharge, ear drainage, ear pain, ear ringing, eye pain, eye redness, hearing loss, mouth pain, mouth swelling, nasal discharge, nose bleeding, nose congestion, nose pain, photophobia, tearing, throat pain, throat swelling, voice changes, others Respiratory: denies: cough, hemoptysis, orthopnea, SOB at rest, shortness of breath, SOB with excertion, stridor, wheezing, others Cardiovascular: denies: chest pain, dizzy spells, diaphoresis, Dyspnea on exertion, edema, irregular heart beat, left arm pain, lightheadedness, palpitations, PND, syncope, others Gastrointestinal: reports: abdominal pain, constipated, nausea; denies: abdomen distended, blood streaked bowels, diarrhea, dysphagia, difficulty swallowing, hematemesis, melena, poor appetite, poor fluid intake, rectal bleeding, rectal pain, vomiting, others Genitourinary: denies: abnormal vagina bleeding, burning, dyspareunia, dysuria, flank pain, frequency, hematuria, incontinence, pain, , vagina discharge, urgency, others Neurological: denies: dizziness, fainting, headache, left sided numbness, left sided weakness, numbness, paresthesia, pre-existing deficit, right sided numbness, right sided weakness, seizure, speech problems, tingling, tremors, weakness, others Musculoskeletal: denies: back pain, gout, joint pain, joint swelling, muscle pain, muscle stiffness, neck pain, others Integumetry: denies: bruises, change in color, change in hair/nails, dryness, laceration, lesions, lumps, rash, wounds, others Allergic/Immunocompromised: denies: Difficulty Healing, Frequent Infections, Hives, Itching, others Hematologic/Lymphatic: denies: anemia, blood clots, easy bleeding, easy bruising, swollen glands, others Endocrine: denies: excessive hunger, excessive sweating, excessive thirst, excessive urination, flushing, intolerance to cold, intolerance to heat, unexplained weight gain, unexplained weight loss, others Psychiatric: denies: anxiety, bipolar disorder, depression, hopeless, panic disorder, schizophrenia, sleepless, suicidal, others All Other Systems: Reviewed and Negative Physical Exam General Appearance: No Apparent Distress, Normal HEENT: Normal ENT Inspection, Pharynx Normal, TMs Normal Neck: Full Range of Motion, Non-Tender, Normal, Normal Inspection Respiratory: Chest Non-Tender, Lungs Clear, No Accessory Muscle Use, No Respiratory Distress, Normal Breath Sounds Cardiovascular: No Edema, No JVD, No Murmur, No Gallop, Normal Peripheral Pulses, Regular Rate/Rhythm Breast Exam: Deferred Gastrointestinal: No Organomegaly, Non Tender, No Pulsatile Mass, Normal Bowel Sounds, Soft Genitalia: Deferred Pelvic: Deferred Rectal: Deferred Extremities: No calf tenderness, Normal capillary refill, Normal inspection, Normal range of motion, Non-tender, No pedal edema Musculoskeletal : Apperance: Normal Neurologic: Alert, manager hris II-XII nml as Tested, No Motor Deficits, Normal Affect, Normal Mood, No Sensory Deficits Cerebellar Function: Normal Reflexes: Normal Skin: Dry, Normal Color, Warm Lymphatic: No Adenopathy Was a procedure done? Was a procedure done?: No GI differential Dx Differential Diagnosis: Bowel Obstruction, Constipation, Esophageal rupture, Inflammatory BD X-Ray, Labs, Meds, VS Vital Signs Date Time Temp Pulse Resp B/P (MAP) Pulse Ox O2 Delivery O2 Flow Rate FiO2 10/17/25 15:36 83 17 137/77 10/17/25 14:06 98.6 71 20 156/108 (124) 96 98.6 10/17/25 14:06 71 20 96 Room Air 10/17/25 12:29 97.9 87 20 164/81 96 97.9 Lab Test 10/17/25 15:22 10/17/25 13:07 Range/Units Lactic Acid Level 1.5 2.6 *H 0.4-2.0 mmol/L White Blood Count 10.4 4.4-10.8 10^3/uL Red Blood Count 4.52 4.0-5.20 10^6/uL Hemoglobin 14.6 12.2-16.2 g/dL Hematocrit 41.4 36.0-46.0 % Mean Corpuscular Volume 91.6 80.0-100.0 fL Mean Corpuscular Hemoglobin 32.2 H 28.0-32.0 pg Mean Corpuscular Hemoglobin Concent 35.2 32.0-36.0 g/dL Red Cell Distribution Width 12.9 11.8-14.3 % Platelet Count 287 140-450 10^3/uL Mean Platelet Volume 7.4 6.9-10.8 fL Neutrophils (%) (Auto) 74.0 37.0-80.0 % Lymphocytes (%) (Auto) 21.2 10.0-50.0 % Monocytes (%) (Auto) 4.4 0.0-12.0 % Eosinophils (%) (Auto) 0.2 0.0-7.0 % Basophils (%) (Auto) 0.2 0.0-2.0 % Neutrophils # (Auto) 7.7 1.6-8.6 10 ^3/uL Lymphocytes # (Auto) 2.2 0.4-5.4 10 ^3/uL Monocytes # (Auto) 0.5 0-1.3 10 ^3/uL Eosinophils # (Auto) 0 0-0.8 10 ^3/uL Basophils # (Auto) 0 0-0.2 10 ^3/uL Nucleated Red Blood Cells 0.1 % Sodium Level 136 136-145 mmol/L Potassium Level 3.6 3.5-5.1 mmol/L Chloride Level 97 L 98-107 mmol/L Carbon Dioxide Level 23 20-31 mmol/L Anion Gap 16 H 5-15 Blood Urea Nitrogen 14 9-23 mg/dL Creatinine 0.88 0.550-1.02 mg/dL Glomerular Filtration Rate Calc 71 >90 mL/min BUN/Creatinine Ratio 15.9 10.0-20.0 Serum Glucose 163 H 74-106 mg/dL Calcium Level 9.9 8.7-10.4 mg/dL Total Bilirubin 0.9 0.2-1.0 mg/dL Aspartate Amino Transferase (AST) 20 13-40 U/L Alanine Aminotransferase (ALT) 20 7-40 U/L Alkaline Phosphatase 98 46-116 U/L Troponin I High Sensitivity 4 </=34 ng/L Total Protein 8.0 5.7-8.2 g/dL Albumin 4.8 3.2-4.8 g/dL Lipase 40 12-53 U/L Current Medications Medications (Trade) Dose Ordered Sig/Aayush Route Start Time Stop Time Status Last Admin Sodium Chloride 1,000 ml @ 1,000 mls/hr Q1H ONCE IV 10/17/25 13:00 10/17/25 13:59 DC 10/17/25 15:26 Morphine Sulfate 4 mg ONCE ONCE IV 10/17/25 13:00 10/17/25 13:01 DC 10/17/25 15:36 Ondansetron HCl (Zofran) 4 mg ONCE ONCE IV 10/17/25 13:00 10/17/25 13:01 DC 10/17/25 15:36 Time of 1ST Reevaluation: 13:23 Reevaluation 1ST: Unchanged Patient Education/Counseling: Diagnosis, Treatment, Prognosis Family Education/Counseling: Diagnosis, Treatment, Prognosis SEPSIS Sepsis Screen Date sepsis recognized/suspect: Oct 17, 2025 Time Sepsis recognized/suspect: 1228 Recent Procedure: No On Antibiotic Therapy: No Respiratory Rate >20: No Heart Rate >90: No Temp<36 C (96.8 F) or >38.3 C: No SBP <90 or MAP <65 mmHG: No New Acute Mental Status Change: No Is the patient on CPAP, BIPAP,: No Physician Orders Urinalysis (10/17/25 12:52) Ct Ab Pel With Iv Con Only (10/17/25 12:52) * Surgical Consult (10/17/25 ) Ng/Orogastric Tube To Lis (10/17/25 16:57) NS (10/17/25 17:00) Morphine Sulfate Injection (10/17/25 17:00) Ondansetron Hcl (Zofran) (10/17/25 17:00) Vital Signs Date Time Temp Pulse Resp B/P (MAP) Pulse Ox O2 Delivery O2 Flow Rate FiO2 10/17/25 15:36 83 17 137/77 10/17/25 14:06 98.6 71 20 156/108 (124) 96 98.6 10/17/25 14:06 71 20 96 Room Air 10/17/25 12:29 97.9 87 20 164/81 96 97.9 Laboratory Tests Test 10/17/25 13:07 10/17/25 15:22 Lactic Acid Level 2.6 mmol/L (0.4-2.0) *H 1.5 mmol/L (0.4-2.0) White Blood Count 10.4 10^3/uL (4.4-10.8) Medications Medications Dose Ordered Sig/Aayush Route Start Time Stop Time Status Last Admin Dose Admin Morphine Sulfate 4 mg ONCE ONCE IV 10/17/25 13:00 10/17/25 13:01 DC 10/17/25 15:36 Ondansetron HCl 4 mg ONCE ONCE IV 10/17/25 13:00 10/17/25 13:01 DC 10/17/25 15:36 Sodium Chloride 1,000 ml @ 1,000 mls/hr Q1H ONCE IV 10/17/25 13:00 10/17/25 13:59 DC 10/17/25 15:26 Departure 1 Departure Time of Disposition: 16:58 (Patient presented with abdominal pain that was concerning for possible appendicits, gastritis, cholecystitis, colitis, gastroenteritis, sbo, or orther possible surgical emergency. Data: 1. I ordered and reviewed the result of at least 3 labs including a CBC, BMP, and Urinalysis. 2. I independently interpreted the following tests: CT Abdomen and Pelvis is concerning for colonic obstruction .Risk:This patient has a high risk of morbidity due to further diagnostic testing or treatment and may suffer from an acute abdominal process disorder. Workup reveals bowel obstruction intractable abdominal pain and patient should be admitted for further workup. and possible expert consultation. ) Impression: Primary Impression: Bowel obstruction Additional Impression: Intractable abdominal pain Disposition: ADMITTED INPATIENT Admit to: Tele Condition: Guarded Critical Care Note Critical Care Time?: Yes Critical care comment: Bowel obstruction intractable abdominal pain Authorized and Performed by: Vincenzo Tilley MD Total critical care time: Approximately 39 minutes Due to a high probability of clinically significant, life threatening deterioration, the patient required my highest level of preparedness to intervene emergently and I personally spent this critical care time directly and personally managing the patient. This critical care time included obtaining a history; examining the patient; pulse oximetry; ordering and review of studies; arranging urgent treatment with development of a management plan; evaluation of patient's response to treatment; frequent reassessment; and, discussions with other providers. This critical care time was performed to assess and manage the high probability of imminent, life-threatening deterioration that could result in multi-organ failure. It was exclusive of separately billable procedures and treating other patients and teaching time. Please see my other sections and the rest of the note for further information on patient assessment and treatment. Stability Stability form required: No I personally scribed for VINCENZO TILLEY MD ([email or web address]) on 10/17/25 at 13:26. Electronically submitted by Elba Schroeder ([facility]). VINCENZO TILLEY MD Oct 17, 2025 13:26
[2025-10-17 13:48] LABS: Hematocrit 41.4 % (36.0-46.0); Hemoglobin 14.6 g/dL (12.2-16.2); Mean Corpuscular Hemoglobin 32.2 pg (28.0-32.0); Mean Corpuscular Volume 91.6 fL (80.0-100.0); Nucleated Red Blood Cells % 0.1 %
[2025-10-17 14:07] LABS: Alanine Aminotransferase 20 U/L (7-40); Albumin 4.8 g/dL (3.2-4.8); Alkaline Phosphatase 98 U/L (46-116); Anion Gap 16 (5-15); BUN/Creatinine Ratio 15.9 (10.0-20.0); Bilirubin, Total 0.9 mg/dL (0.2-1.0); Blood Urea Nitrogen 14 mg/dL (9-23); Calcium 9.9 mg/dL (8.7-10.4); Carbon Dioxide 23 mmol/L (20-31); Potassium 3.6 mmol/L (3.5-5.1); Sodium 136 mmol/L (136-145); Total Protein 8.0 g/dL (5.7-8.2)
[2025-10-17 14:09] LABS: Chloride 97 mmol/L (98-107); Glucose 163 mg/dL (74-106)
[2025-10-17 14:12] LABS: Lactic Acid w/Reflex 2.6 mmol/L (0.4-2.0)
[2025-10-17 14:37] LABS: Lipase 40 U/L (12-53)
[2025-10-17] MEDS: SODIUM CHLORIDE 0.9% 1,000 ML IV ONE ×2 (15:26→17:00)
[2025-10-17] MEDS: MORPHINE SULFATE 4 MG/ML SYR/VIAL IV ONE ×2 (15:36→18:12)
[2025-10-17] MEDS: ONDANSETRON HCL 4 MG/2 ML VIAL IV ONE ×2 (15:36→18:12)
--- NOTE | 2025-10-17 15:51 | DVH ---
Exam: CT CT AB PEL WITH IV CON ONLY History: abdominal pain Comparison Study: CT ABDOMEN PELVIS WITH on DOS: 05/07/25 TECHNIQUE: Multidetector CT of the abdomen was performed from lung bases to pubic symphysis. Imaging was performed without IV contrast. Axial, coronal and sagittal multiplanar reformats were obtained from the axial data set by the technologist. Radiation Dose Information: Dose-length product is 1344.06 mGy*cm FINDINGS: Limited sections of the lung bases demonstrate no focal pulmonary mass. The liver, spleen, pancreas, and both adrenal glands demonstrate no acute findings. 2.6 cm cyst within the right hepatic lobe and a smaller cyst within the left hepatic lobe. 1.6 cm left adrenal lesion likely adenoma. The gallbladder is unremarkable. The stomach is unremarkable. The small bowel loops are not dilated. The appendix is normal. Colonic obstruction with transition point at the sigmoid colon. There is thickening of the sigmoid colonic tissue where infectious/neoplastic process may be considered. Bilateral kidneys are unremarkable. No hydronephrosis. The urinary bladder is partially distended. No significant lymphadenopathy. Mild pelvic free fluid. No free air The aorta and IVC demonstrate no acute findings. Mild atherosclerosis abdominal vasculature. Visualized osseous structures demonstrate no acute abnormality. Fluid containing small right inguinal hernia. IMPRESSION: 1. Colonic obstruction with transition point at the sigmoid colon. There is thickening of the sigmoid colonic tissue where infectious/neoplastic process may be considered.
[2025-10-17 18:37] VITALS: PULSE 72; RESP 15; O2SAT 95
[2025-10-17 19:29] LABS: Urine Budding Yeast OCCASIONAL /hpf (None Seen); Urine Protein, UAD Negative (Negative)
--- NOTE | 2025-10-17 19:42 | DVHHP2 ---
History of Present Illness Reason for Visit: Bowel obstruction History of Present Illness The patient is a 70-year-old female with past medical history of GERD, diabetes mellitus, and hypertension who presented to [facility] ED with complaint of constipation. Patient reports last bowel movement was about 1 week ago, states that she is not passing any gas, but hears a "gurgling noise" associated with nausea and lower abdominal pain. Patient was seen here in the past for same complaint and was admitted. Patient was seen and evaluated in the ED, laboratory data shows WBC 10.4, platelets 287, sodium 136, potassium 3.6, BUN 14, creatinine 0.88, GFR 71, glucose 163, calcium 9.9, lactic acid 2.6 rosalba nding down to 1.5, troponin 4, lipase 40, blood pressure 143/76, heart rate 72, temperature 100.4 F, O2 saturation 97% on room air. Abdomen/pelvis CT revealing colonic obstruction with transition point at the sigmoid colon; there is thickening of the sigmoid colonic tissue were infectious/neoplastic process may be considered. Please see medication orders section in the computer. On my assessment, patient denied chest pain, no dizziness, headache, diaphoresis, shortness of breaths, no diarrhea, nausea, vomiting, fever, no chills. Patient was admitted for further evaluation and medical management. Past Medical History DM, GERD, HTN Past Surgical History Denies all surgeries Family History Reviewed, noncontributory to the management of this case. Past Social History The patient lives at home, denies smoking, alcohol or illicit drugs abuse. Review of Systems Constitutional: No: Fever, Chills, Sweats, Weakness, Malaise, Other Eyes: No: Pain, Vision change, Conjunctivae inflammation, Eyelid inflammation, Other, Redness ENT: No: Ear pain, Ear discharge, Nose pain, Nose discharge, Nose congestion, Mouth pain, Mouth swelling, Throat pain, Throat swelling, Other Respiratory: No: Cough, Dry, Shortness of breath, SOB with excertion, Wheezing, Hemoptysis, Pleuritic Pain, Sputum, Wheezing, Other Cardiovascular: No: Chest Pain, Palpitations, Orthopnea, Paroxysmal Noc. Dyspnea, Edema, Lt Headedness, Other Gastrointestinal: Nausea, Abdominal Pain, Constipation; No: Vomiting, Diarrhea, Melena, Hematochezia, Other Genitourinary: No Dysuria, No Frequency, No Incontinence, No Hematuria, No Retention, No Other Musculoskeletal: No: other, neck pain, shoulder pain, arm pain, back pain, hand pain, leg pain, foot pain Skin: No: Rash, Lesions, Jaundice, Bruising, Other Neurological: No: Weakness, Numbness, Incoordination, Change in speech, Confusion, Seizures, Other Allergies: Coded Allergies: Penicillins (Unverified Allergy, Unknown, 12/30/21) Exam Vital Signs Vital Signs Date Time Temp Pulse Resp B/P (MAP) Pulse Ox O2 Delivery O2 Flow Rate FiO2 10/17/25 18:47 72 15 143/76 10/17/25 18:37 100.4 96 100.4 10/17/25 18:37 Room Air* 0 21 General Appearance: Alert, Oriented X3, Cooperative, No acute distress HEENT: Atraumatic, PERRLA, EOMI, Mucous membr. moist/pink Respiratory: Clear to auscultation, Normal air movement Cardiovascular: Regular rate, Normal S1, Normal S2, No murmurs Abdominal: Normal bowel sounds, Soft, No hepatospenomegaly, No masses, Other (Reports tenderness) Extremities: No clubbing, No cyanosis, No edema, Normal pulses, No tenderness/swelling Skin: No rashes, No significant lesion Neuro: Normal speech, Normal tone, Sensation intact, Cranial nerves 3-12 NL, Reflexes 2+ Psych/Mental Status: Mental status NL, Mood NL Labs/Xrays Labs Test 10/17/25 18:23 10/17/25 15:22 10/17/25 13:07 Range/Units Urine Color Light-yellow Yellow Urine Clarity Clear Clear Urine pH 5.5 5.0-9.0 Urine Specific [place] > 1.050 H 1.001-1.035 Urine Protein Negative Negative Urine Ketones Trace Negative Urine Blood 1+ H Negative /uL Urine Nitrite Negative Negative Urine Bilirubin Negative Negative Urine Urobilinogen Normal Negative mg/dL Urine Leukocyte Esterase Negative Negative /uL Urine RBC 3 0 - 4 /hpf Urine Microscopic WBC 4 0-5 /HPF Urine Squamous Epithelial Cells Few <5 /hpf Urine Bacteria None seen None Seen /hpf Urine Yeast (Budding) Occasional None Seen /hpf Urine Glucose Normal Normal mg/dL Lactic Acid Level 1.5 0.4-2.0 mmol/L White Blood Count 10.4 4.4-10.8 10^3/uL Red Blood Count 4.52 4.0-5.20 10^6/uL Hemoglobin 14.6 12.2-16.2 g/dL Hematocrit 41.4 36.0-46.0 % Mean Corpuscular Volume 91.6 80.0-100.0 fL Mean Corpuscular Hemoglobin 32.2 H 28.0-32.0 pg Mean Corpuscular Hemoglobin Concent 35.2 32.0-36.0 g/dL Red Cell Distribution Width 12.9 11.8-14.3 % Platelet Count 287 140-450 10^3/uL Mean Platelet Volume 7.4 6.9-10.8 fL Neutrophils (%) (Auto) 74.0 37.0-80.0 % Lymphocytes (%) (Auto) 21.2 10.0-50.0 % Monocytes (%) (Auto) 4.4 0.0-12.0 % Eosinophils (%) (Auto) 0.2 0.0-7.0 % Basophils (%) (Auto) 0.2 0.0-2.0 % Neutrophils # (Auto) 7.7 1.6-8.6 10 ^3/uL Lymphocytes # (Auto) 2.2 0.4-5.4 10 ^3/uL Monocytes # (Auto) 0.5 0-1.3 10 ^3/uL Eosinophils # (Auto) 0 0-0.8 10 ^3/uL Basophils # (Auto) 0 0-0.2 10 ^3/uL Nucleated Red Blood Cells 0.1 % Sodium Level 136 136-145 mmol/L Potassium Level 3.6 3.5-5.1 mmol/L Chloride Level 97 L 98-107 mmol/L Carbon Dioxide Level 23 20-31 mmol/L Anion Gap 16 H 5-15 Blood Urea Nitrogen 14 9-23 mg/dL Creatinine 0.88 0.550-1.02 mg/dL Glomerular Filtration Rate Calc 71 >90 mL/min BUN/Creatinine Ratio 15.9 10.0-20.0 Serum Glucose 163 H 74-106 mg/dL Calcium Level 9.9 8.7-10.4 mg/dL Total Bilirubin 0.9 0.2-1.0 mg/dL Aspartate Amino Transferase (AST) 20 13-40 U/L Alanine Aminotransferase (ALT) 20 7-40 U/L Alkaline Phosphatase 98 46-116 U/L Troponin I High Sensitivity 4 </=34 ng/L Total Protein 8.0 5.7-8.2 g/dL Albumin 4.8 3.2-4.8 g/dL Lipase 40 12-53 U/L PATIENT: JOVANI SOTO ACCT: [id number] UNIT: [id number] : 1955 LOC: ER ROOM / BED: / AGE / SEX: 70 / F ADM STATUS: REG ER SERVICE 1252 ORDERING PHYSICIAN: VINCENZO HORNER MD PROCEDURE(s): ABPLIV - CT AB PEL WITH IV CON ONLY REASON: abdominal pain ORDER NUMBER(s): [id number], ACCESSION NUMBER(s): [id number] Exam: CT CT AB PEL WITH IV CON ONLY History: abdominal pain Comparison Study: CT ABDOMEN PELVIS WITH on DOS: 05/07/25 TECHNIQUE: Multidetector CT of the abdomen was performed from lung bases to pubic symphysis. Imaging was performed without IV contrast. Axial, coronal and sagittal multiplanar reformats were obtained from the axial data set by the technologist. Radiation Dose Information: Dose-length product is 1344.06 mGy*cm FINDINGS: Limited sections of the lung bases demonstrate no focal pulmonary mass. The liver, spleen, pancreas, and both adrenal glands demonstrate no acute findings. 2.6 cm cyst within the right hepatic lobe and a smaller cyst within the left hepatic lobe. 1.6 cm left adrenal lesion likely adenoma. The gallbladder is unremarkable. The stomach is unremarkable. The small bowel loops are not dilated. The appendix is normal. Colonic obstruction with transition point at the sigmoid colon. There is thickening of the sigmoid colonic tissue where infectious/neoplastic process may be considered. Bilateral kidneys are unremarkable. No hydronephrosis. The urinary bladder is partially distended. No significant lymphadenopathy. Mild pelvic free fluid. No free air The aorta and IVC demonstrate no acute findings. Mild atherosclerosis abdominal vasculature. Visualized osseous structures demonstrate no acute abnormality. Fluid containing small right inguinal hernia. IMPRESSION: 1. Colonic obstruction with transition point at the sigmoid colon. There is thickening of the sigmoid colonic tissue where infectious/neoplastic process may be considered. SEPSIS Sepsis Screen Date sepsis recognized/suspect: Oct 17, 2025 Time Sepsis recognized/suspect: 1719 Recent Procedure: No On Antibiotic Therapy: No Respiratory Rate >20: Yes Heart Rate >90: Yes Temp<36 C (96.8 F) or >38.3 C: No SBP <90 or MAP <65 mmHG: No New Acute Mental Status Change: No Is the patient on CPAP, BIPAP,: No Physician Orders Ct Ab Pel With Iv Con Only (10/17/25 12:52) * Surgical Consult (10/17/25 ) Ng/Orogastric Tube To Lis (10/17/25 16:57) Metronidazole Ivpb Flagyl (10/17/25 22:00) Metronidazole Ivpb Flagyl (10/17/25 19:45) Glucose Blood (Accu-Chek Comfort Curve T (10/18/25 00:00) Mild Sliding Scale Npo - Q6hr (10/18/25 00:00) Dextrose 50% Syringe (10/17/25 19:45) Admit (10/17/25 19:37) Allergies (10/17/25:37) Code Status (10/17/25:37) 0.9% Ns 1000 Ml (10/17/25 19:45) Oxygen Per Hour (10/17/25 19:37) Hydrocodone-Acet 5/325mg Tab ([place] 5/32 (10/17/25 19:45) Ondansetron Hcl (Zofran) (10/17/25 19:45) Complete Blood Count (10/18/25 04:00) Comprehensive Metabolic Panel (10/18/25 04:00) Npo (Nothing By Mouth) Diet (10/18/25 Breakfast) Condition: Serious (10/17/25 19:37) Acetaminophen Tablet (Tylenol Tablet) (10/17/25 19:45) Bedrest With Bathroom Privileg (10/17/25 19:37) Morphine Sulfate Injection (10/17/25 19:45) Sequential Compression Device (10/17/25 ) Nitroglycerin Sublingual (Ntrostat Subli (10/17/25 19:45) Morphine Sulfate Injection (10/17/25 19:45) Stat Ekg For Chest Pain (10/17/25 19:37) Notify Of Changes From Base (10/17/25 19:37) Beet Flumer For 24 Hours (10/17/25 19:37) Emergency Dysrhythmia Protocol (10/17/25 19:37) Rhythm Strips Once Every Shift (10/17/25 19:37) Oxygen By Nasal Cannula (10/17/25 19:37) Hydralazine Injection (Apresoline Inject (10/17/25 19:45) Vital Signs Date Time Temp Pulse Resp B/P (MAP) Pulse Ox O2 Delivery O2 Flow Rate FiO2 10/17/25 18:47 72 15 143/76 10/17/25 18:37 100.4 72 15 143/76 (98) 96 100.4 10/17/25 18:37 72 15 95 Room Air* 0 21 10/17/25 18:12 120 18 135/74 10/17/25 17:25 99.8 134 16 137/89 (105) 100 99.8 10/17/25 17:17 98.7 132 14 119/94 (102) 96 98.7 10/17/25 16:06 133 20 139/83 10/17/25 15:36 83 17 137/77 10/17/25 14:06 98.6 71 20 156/108 (124) 96 98.6 10/17/25 14:06 71 20 96 Room Air 10/17/25 12:29 97.9 87 20 164/81 96 97.9 Laboratory Tests Test 10/17/25 13:07 10/17/25 15:22 Lactic Acid Level 2.6 mmol/L (0.4-2.0) *H 1.5 mmol/L (0.4-2.0) White Blood Count 10.4 10^3/uL (4.4-10.8) Medications Medications Dose Ordered Sig/Aayush Route Start Time Stop Time Status Last Admin Dose Admin Morphine Sulfate 4 mg ONCE ONCE IV 10/17/25 13:00 10/17/25 13:01 DC 10/17/25 15:36 4 MG Morphine Sulfate 4 mg ONCE ONCE IV 10/17/25 17:00 10/17/25 17:32 DC 10/17/25 18:12 4 MG Ondansetron HCl 4 mg ONCE ONCE IV 10/17/25 13:00 10/17/25 13:01 DC 10/17/25 15:36 4 MG Ondansetron HCl 4 mg ONCE ONCE IV 10/17/25 17:00 10/17/25 17:32 DC 10/17/25 18:12 4 MG Sodium Chloride 1,000 ml @ 1,000 mls/hr Q1H ONCE IV 10/17/25 13:00 10/17/25 13:59 DC 10/17/25 15:26 1,000 MLS/HR Sodium Chloride 1,000 ml @ 1,000 mls/hr Q1H ONCE IV 10/17/25 17:00 10/17/25 17:59 DC 10/17/25 17:00 1,000 MLS/HR Assessment/Plan Assessment/Plan Bowel obstruction Hyperglycemia Intractable abdominal pain Plan 1. Admit to telemetry unit 2. Breathing treatment 3. Pain control management 4. IV antibiotic management 5. Management of fluids and electrolytes 6. Consultation for surgery 7. Diagnostic test abdomen/pelvis CT 8. DVT prophylaxis-on SCDs 9. Repeat labs CBC, CMP in a.m. 10. Home medication reviewed and reconciled 11. Continue with current medical management 12. Treatment plan discussed with patient and RN. Patient verbalized understanding. Plan discussed with: Patient, Other (RN) My Orders Orders - LEAH CHAKRABORTY DNP Procedure Category Date Status Time Metronidazole Ivpb PHA 10/17/25 Verified Flagyl 22:00 Metronidazole Ivpb PHA 10/17/25 Verified Flagyl 19:45 Glucose Blood PHA 10/18/25 Verified (Accu-Chek Comfort 00:00 Mild Sliding Scale PHA 10/18/25 Verified Npo - Q6hr 00:00 Dextrose 50% Syringe PHA 10/17/25 Verified 19:45 Admit ADMIT 10/17/25 Verified 19:37 Allergies CELESTINA 10/17/25 Verified 19:37 Code Status CODE 10/17/25 Verified 19:37 0.9% Ns 1000 Ml PHA 10/17/25 Verified 19:45 Oxygen Per Hour RT 10/17/25 Verified 19:37 Hydrocodone-Acet PHA 10/17/25 Verified 5/325mg Tab (Paradise 19:45 Ondansetron Hcl PHA 10/17/25 Verified (Zofran) 19:45 Complete Blood Count LAB 10/18/25 Verified 04:00 Comprehensive LAB 10/18/25 Verified Metabolic Panel 04:00 Npo (Nothing By DIET 10/18/25 Verified Mouth) Diet Breakfast Condition: Serious CELESTINA 10/17/25 Verified 19:37 Acetaminophen Tablet PHA 10/17/25 Verified (Tylenol Tablet) 19:45 Bedrest With Bathroom [facility] 10/17/25 Verified Privileg 19:37 Morphine Sulfate [facility] 10/17/25 Verified Injection 19:45 Sequential [facility] 10/17/25 Verified Compression Device Nitroglycerin [facility] 10/17/25 Verified Sublingual (Ntrostat 19:45 Morphine Sulfate [facility] 10/17/25 Verified Injection 19:45 Stat Ekg For Chest [facility] 10/17/25 Verified Pain 19:37 Notify Md Of Changes [facility] 10/17/25 Verified From Base 19:37 Beet Flumer For [facility] 10/17/25 Verified 24 Hours 19:37 Emergency Dysrhythmia [facility] 10/17/25 Verified Protocol 19:37 Rhythm Strips Once [facility] 10/17/25 Verified Every Shift 19:37 Oxygen By Nasal 10/17/25 Verified Cannula 19:37 Hydralazine Injection [facility] 10/17/25 Verified (Apresoline Inject 19:45 Problem List: (1) Bowel obstruction (2) Hyperglycemia (3) Intractable abdominal pain Date of Service: Oct 17, 2025 Billing Provider: LEAH CHAKRABORTY DNP Common Visit Codes: [id number] INP/OBS CARE (HIGH) LEAH CHAKRABORTY DNP Oct 17, 2025 19:42
[2025-10-17] MEDS ORDERED: ACETAMINOPHEN 325 MG TAB PO PRN (19:45)
[2025-10-17] MEDS ORDERED: DEXTROSE (50%) 50ML SYRG IV PRN (19:45)
[2025-10-17] MEDS ORDERED: hydrALAZINE HCL 20 MG/ML VL IV PRN (19:45)
[2025-10-17] MEDS ORDERED: MORPHINE SULFATE INJ 2 MG/ml SYRG IV PRN ×2 (19:45)
[2025-10-17] MEDS ORDERED: NITROGLYCERIN 0.4 MG SL TAB SL PRN (19:45)
[2025-10-17 20:10] VITALS: PULSE 68; RESP 20; O2SAT 97
[2025-10-17 22:19] VITALS: BP 116/54; PULSE 69; RESP 16; TEMP 98.4; O2SAT 95
[2025-10-17] MEDS: SODIUM CHLORIDE 0.9% 1,000 ML IV SCH (23:54)
[2025-10-17] MEDS: InsuLIN REG 1unit/0.01ml Soln (100units/ml) SC SCH (23:57)
[2025-10-17] MEDS: ACCU-CHEK COMFORT CURVE STRIP VI SCH (23:58)
[2025-10-18] VITALS (8 sets, daily range): BP systolic 116–138; BP diastolic 45–82; PULSE 62–79; RESP 16–18; TEMP 97.8–98.4; O2SAT 93–98
[2025-10-18] MEDS: HYDROcodone-ACET 5/325MG TAB ONE ×3 (01:19→15:33)
[2025-10-18] MEDS: HYDROcodone-ACET 5/325MG TAB PO PRN (01:22)
[2025-10-18 06:02] LABS: Hematocrit 36.9 % (36.0-46.0); Hemoglobin 12.5 g/dL (12.2-16.2); Mean Corpuscular Hemoglobin 31.7 pg (28.0-32.0); Mean Corpuscular Volume 93.6 fL (80.0-100.0); Nucleated Red Blood Cells % 0.2 %
[2025-10-18 06:16] LABS: Alanine Aminotransferase 13 U/L (7-40); Albumin 4.0 g/dL (3.2-4.8); Alkaline Phosphatase 78 U/L (46-116); Anion Gap 9 (5-15); BUN/Creatinine Ratio 10.8 (10.0-20.0); Blood Urea Nitrogen 10 mg/dL (9-23); Calcium 8.7 mg/dL (8.7-10.4); Carbon Dioxide 29 mmol/L (20-31); Chloride 100 mmol/L (98-107); Potassium 4.0 mmol/L (3.5-5.1); Sodium 138 mmol/L (136-145); Total Protein 6.7 g/dL (5.7-8.2)
[2025-10-18 06:17] LABS: Bilirubin, Total 0.9 mg/dL (0.2-1.0)
[2025-10-18 06:34] LABS: Glucose 122 mg/dL (74-106)
--- NOTE | 2025-10-18 11:22 | DVHINCON2 ---
Consultation - Surgical Date Seen: Oct 18, 2025 Referring Physician Reason for Consultation Large bowel obstruction History of Present Illness History of Present Illness Mrs. Calero is a 70-year-old female who presented to the emergency department with abdominal pain and bloating for the past week. Patient states that she was very busy this week and she does not remember when it really started. Also says that she has not had a bowel movement in approximately a week, but has passed flatus occasionally, last being this morning. Patient states she usually runs very constipated going to the bathroom approximately 3 times a week, and noticed that this last week she was getting constipated but since she was busy she did not take the time to take care of herself. States that she was very dehydrated this week. Prior to this happening she has not noted any changes in stool caliber, denies fevers, chills, weight loss, loss of appetite. She does not have a personal history of cancer. Family history is remarkable for breast cancer in her sister and cousin. Her last colonoscopy was on April of 2020 and remarkable only for diverticulosis. Past Medical/Surgical History Past Medical/Surgical History Past medical history diabetes, GERD, hypertension, constipation Past surgical history: Colonoscopy on April of 2020 only remarkable for diverticulosis per patient, upper endoscopy on January 04, 2022 and was remarkable for mild gastritis, hiatal hernia, and stomach body ulceration Family and Social History Family and Social History Family history remarkable for breast cancer in sister and cousin ETOH/T Ob/drugs denies Allergies and medications Allergies: Coded Allergies: Penicillins (Unverified Allergy, Unknown, 12/30/21) Home Meds Active Scripts Losartan Potassium (Losartan Potassium) 25 Mg Tab, 1 TAB PO DAILY, #30 TAB 1 Refill Prov:MIROSLAVA COLLAZO MD 05/17/25 Reported Medications Escitalopram Oxalate (Lexapro) 5 Mg Tab, 1 TAB PO DAILY, #30 TAB 2 Refills 05/13/25 Cholecalciferol (VITAMIN D3) 2,000 Unit Tab, [address] TAB PO QWEEKLY, #30 TAB 5 Refills 05/12/25 Atorvastatin Calcium (Lipitor) 10 Mg Tab, 10 MG PO QPM, TAB 12/30/21 Losartan Potassium (Losartan Potassium) 25 Mg Tab, 25 MG PO DAILY, TAB 12/30/21 Review of systems Review of Systems: HEENT:Normal, CVS:Normal, RESPIRATORY:Normal, GI:Abnormal (See HPI), :Normal, MSK:Normal, NEURO:Normal Examination Vital signs Vital Signs Date Time Temp Pulse Resp B/P (MAP) Pulse Ox O2 Delivery O2 Flow Rate FiO2 10/18/25 08:50 98.0 65 18 117/63 (81) 94 98.0 10/18/25 08:00 Room Air* 0 21 Medications Current Medications Medications (Trade) Dose Ordered Sig/Aayush Route PRN Reason Start Time Stop Time Status Last Admin Metronidazole 100 ml @ 100 mls/hr Q8H IV 10/17/25 20:00 10/17/25 22:53 DC Diagnostic Test (Pha) (Accu-Chek Comfort Curve T) 1 strip Q6HR 10/18/25 00:00 10/18/25 11:03 Insulin Human Regular (InsuLIN R) Q6HR SC 10/18/25 00:00 Dextrose 50 ml UD PRN IV Blood Sugar LESS THAN 60 10/17/25 19:45 Sodium Chloride 1,000 ml @ 60 mls/hr [id number] IV 10/17/25 19:45 10/17/25 23:54 Acetaminophen/ Hydrocodone Bitart ([place] 5/325MG Tab) 1 tab Q4HP PRN PO MODERATE PAIN (4-6 PAIN SCALE) 10/17/25 19:45 10/18/25 11:01 Ondansetron HCl (Zofran) 4 mg Q4HP PRN IV NAUSEA / VOMITING 10/17/25 19:45 Acetaminophen (Tylenol Tablet) 650 mg Q6HP PRN PO PAIN SCALE 1-3 OR TEMP>100.4 10/17/25 19:45 Morphine Sulfate 2 mg Q4HPRN PRN IV SEVERE PAIN (7-10 PAIN SCALE) 10/17/25 19:45 Nitroglycerin (Ntrostat Sublingual) 0.4 mg Q5MINP PRN SL FOR CHEST PAIN 10/17/25 19:45 Morphine Sulfate 2 mg Q30M PRN IV FOR CHEST PAIN 10/17/25 19:45 Hydralazine HCl (Apresoline Injection) 10 mg Q6HP PRN IV SBP>150 10/17/25 19:45 Metronidazole 100 ml @ 100 mls/hr Q8H IV 10/17/25 23:00 10/18/25 07:06 Sodium Biphosphate/ Sodium Phosphate 133 ml Q6HR IA 10/18/25 12:00 10/19/25 12:00 UNV Laboratory Labs Test 10/18/25 11:03 10/18/25 05:07 10/17/25 18:23 10/17/25 15:22 Range/Units POC Glucose 149 H 70-106 mg/dl White Blood Count 6.7 # 4.4-10.8 10^3/uL Red Blood Count 3.95 L 4.0-5.20 10^6/uL Hemoglobin 12.5 12.2-16.2 g/dL Hematocrit 36.9 # 36.0-46.0 % Mean Corpuscular Volume 93.6 80.0-100.0 fL Mean Corpuscular Hemoglobin 31.7 28.0-32.0 pg Mean Corpuscular Hemoglobin Concent 33.8 32.0-36.0 g/dL Red Cell Distribution Width 13.3 11.8-14.3 % Platelet Count 225 140-450 10^3/uL Mean Platelet Volume 7.5 6.9-10.8 fL Neutrophils (%) (Auto) 60.5 37.0-80.0 % Lymphocytes (%) (Auto) 28.7 10.0-50.0 % Monocytes (%) (Auto) 9.4 0.0-12.0 % Eosinophils (%) (Auto) 1.0 0.0-7.0 % Basophils (%) (Auto) 0.4 0.0-2.0 % Neutrophils # (Auto) 4.0 1.6-8.6 10 ^3/uL Lymphocytes # (Auto) 1.9 0.4-5.4 10 ^3/uL Monocytes # (Auto) 0.6 0-1.3 10 ^3/uL Eosinophils # (Auto) 0.1 0-0.8 10 ^3/uL Basophils # (Auto) 0 0-0.2 10 ^3/uL Nucleated Red Blood Cells 0.2 % Sodium Level 138 136-145 mmol/L Potassium Level 4.0 3.5-5.1 mmol/L Chloride Level 100 98-107 mmol/L Carbon Dioxide Level 29 20-31 mmol/L Anion Gap 9 5-15 Blood Urea Nitrogen 10 9-23 mg/dL Creatinine 0.93 0.550-1.02 mg/dL Glomerular Filtration Rate Calc 66 >90 mL/min BUN/Creatinine Ratio 10.8 10.0-20.0 Serum Glucose 122 H 74-106 mg/dL Calcium Level 8.7 8.7-10.4 mg/dL Total Bilirubin 0.9 0.2-1.0 mg/dL Aspartate Amino Transferase (AST) 19 13-40 U/L Alanine Aminotransferase (ALT) 13 7-40 U/L Alkaline Phosphatase 78 46-116 U/L Total Protein 6.7 5.7-8.2 g/dL Albumin 4.0 3.2-4.8 g/dL Urine Color Light-yellow Yellow Urine Clarity Clear Clear Urine pH 5.5 5.0-9.0 Urine Specific [place] > 1.050 H 1.001-1.035 Urine Protein Negative Negative Urine Ketones Trace Negative Urine Blood 1+ H Negative /uL Urine Nitrite Negative Negative Urine Bilirubin Negative Negative Urine Urobilinogen Normal Negative mg/dL Urine Leukocyte Esterase Negative Negative /uL Urine RBC 3 0 - 4 /hpf Urine Microscopic WBC 4 0-5 /HPF Urine Squamous Epithelial Cells Few <5 /hpf Urine Bacteria None seen None Seen /hpf Urine Yeast (Budding) Occasional None Seen /hpf Urine Glucose Normal Normal mg/dL Lactic Acid Level 1.5 0.4-2.0 mmol/L Test 10/17/25 13:07 Range/Units Troponin I High Sensitivity 4 </=34 ng/L Lipase 40 12-53 U/L Examination: GENERAL:Normal (Alert awake and oriented x3), HEENT:Normal (No icterus, neck supple), LUNGS:Normal (Nonlabored breathing with symmetric expansion), ABDOMEN:Normal (Distended upper abdomen, soft, depressible, mildly tender upper abdomen, no rebound, no guarding, no hernias, no masses) Problem List/Assessment/Plan Problems: (1) Bowel obstruction Assessment and Plan Mrs. Calero is a 70-year-old female who presents with bloating for the past week and inability to have a bowel movement, but passing occasional flatus. CT shows colonic distention up to the sigmoid colon with a transition point, showing distal sigmoid colon decompression, no discrete mass identified, it looks like a stricture segment versus inflammatory process versus just collapse intestine versus non visible mass on imaging. I reviewed a prior CT of the abdomen pelvis from earlier in this year, that CT was done with oral contrast and it shows the same collapse in the same segment of the sigmoid with contrast making its way through it, but no proximal colonic distention. I would like the patient to get a colonoscopy prior to any possible surgical management. 1. Recommend GI consultation for possible colonoscopy 2. NPO 3. Enemas Q 6 for 24 hours 4. No p.o. cathartic medications Plan discussed with Plan discussed with: Patient Visit Coding Surgery Date of Service if different f: Oct 18, 2025 Billing Provider: CHERYLE KARIMI MD Surgery Visit Codes: 10950 - INP CONSULT <110 MIN CHERYLE KARIMI MD Oct 18, 2025 11:22
[2025-10-18] MEDS: FLEET MINERAL OIL ENEMA 133 ML PR SCH (12:00)
--- NOTE | 2025-10-18 14:08 | DVHPN2 ---
Subjective 70-year-old female came with chief complaint of abdominal pain and bloating for the last week She has some nausea She did not have a bowel movement for more than a week She says she is always constipated Changes from previous H/P or p: Changes Eyes: No Pain, No Vision change, No Conjunctivae inflammation, No Eyelid inflammation, No Other, No Redness ENT: No Ear pain, No Ear discharge, No Nose pain, No Nose discharge, No Nose congestion, No Mouth pain, No Mouth swelling, No Throat pain, No Throat swelling, No Other Cardiovascular: No Chest Pain, No Palpitations, No Orthopnea, No Paroxysmal Noc. Dyspnea, No Edema, No Lt Headedness, No Other Respiratory: No Cough, No Dry, No Shortness of breath, No SOB with excertion, No Wheezing, No Hemoptysis, No Pleuritic Pain, No Sputum, No Other Gastrointestinal: Nausea; No Vomiting; Abdominal Pain; No Diarrhea; C onstipation; No Melena, No Hematochezia, No Other Genitourinary: No Dysuria, No Frequency, No Incontinence, No Hematuria, No Retention, No Other Musculoskeletal: No other, No neck pain, No shoulder pain, No arm pain, No back pain, No hand pain, No leg pain, No foot pain Skin: No Rash, No Lesions, No Jaundice, No Bruising, No Other Objective Vitals Vital Signs Date Time Temp Pulse Resp B/P (MAP) Pulse Ox O2 Delivery O2 Flow Rate FiO2 10/18/25 12:55 98.2 63 17 116/60 (78) 95 98.2 10/18/25 08:00 Room Air* 0 21 Intake/Output Intake and Output 10/18/25 07:00 Intake Total 300 ml Balance 300 ml Intake Oral 200 ml IV Total 100 ml General Appearance: Alert, Oriented X3, Cooperative Lungs: Clear to auscultation, Normal air movement Cardiovascular: Regular rate, Normal S1, Normal S2, No murmurs Abdomen: Normal bowel sounds, Other (Distended) Extremities: No edema Medications Current Medications Medications Dose Ordered Sig/Aayush Route Start Time Stop Time Status Last Admin Dose Admin Diagnostic Test (Pha) 1 strip Q6HR 10/18/25 00:00 10/18/25 11:03 1 STRIP Insulin Human Regular Q6HR SC 10/18/25 00:00 Dextrose 50 ml UD PRN IV 10/17/25 19:45 Sodium Chloride 1,000 ml @ 60 mls/hr [id number] IV 10/17/25 19:45 10/17/25 23:54 60 MLS/HR Acetaminophen/ Hydrocodone Bitart 1 tab Q4HP PRN PO 10/17/25 19:45 10/18/25 11:01 1 TAB Ondansetron HCl 4 mg Q4HP PRN IV 10/17/25 19:45 Acetaminophen 650 mg Q6HP PRN PO 10/17/25 19:45 Morphine Sulfate 2 mg Q4HPRN PRN IV 10/17/25 19:45 Nitroglycerin 0.4 mg Q5MINP PRN SL 10/17/25 19:45 Morphine Sulfate 2 mg Q30M PRN IV 10/17/25 19:45 Hydralazine HCl 10 mg Q6HP PRN IV 10/17/25 19:45 Metronidazole 100 ml @ 100 mls/hr Q8H IV 10/17/25 23:00 10/18/25 07:06 100 MLS/HR Sodium Biphosphate/ Sodium Phosphate 133 ml Q6HR AR 10/18/25 12:00 10/19/25 12:00 Laboratory Results Laboratory Tests 10/18/25 05:07 Chemistry Test 10/18/25 05:07 Albumin 4.0 g/dL (3.2-4.8) Calcium Level 8.7 mg/dL (8.7-10.4) Total Protein 6.7 g/dL (5.7-8.2) LFT Test 10/18/25 05:07 Alanine Aminotransferase (ALT) 13 U/L (7-40) Alkaline Phosphatase 78 U/L (46-116) Aspartate Amino Transferase (AST) 19 U/L (13-40) Total Bilirubin 0.9 mg/dL (0.2-1.0) Urinalysis Test 10/17/25 18:23 Urine Color Light-yellow (Yellow) Urine Clarity Clear (Clear) Urine pH 5.5 (5.0-9.0) Urine Specific [place] > 1.050 (1.001-1.035) Urine Protein Negative (Negative) Urine Ketones Trace (Negative) Urine Blood 1+ /uL (Negative) H Urine Nitrite Negative (Negative) Urine Bilirubin Negative (Negative) Urine Urobilinogen Normal mg/dL (Negative) Urine Leukocyte Esterase Negative /uL (Negative) Urine RBC 3 /hpf (0 - 4) Urine Microscopic WBC 4 /HPF (0-5) Urine Squamous Epithelial Cells Few /hpf (<5) Urine Bacteria None seen /hpf (None Seen) Urine Yeast (Budding) Occasional /hpf (None Urine Glucose Normal mg/dL (Normal) Assessment/Plan Assessment/Plan Large bowel obstruction, colonic obstruction with transition point at the sigmoid colon Morbid obesity GERD Type 2 diabetes Hypertension Constipation Plan NPO GI consult for possible colonoscopy Surgical consult IV fluids Mineral oil Fleet enemas Monitor closely Full code Advance directives discussed for 18 minutes Plan discussed with: Patient My Orders Orders - SIENA BRUCE MD Procedure Category Date Status Time * Gi Dvh [employer]o Filler CONS 10/18/25 Transmitted 13:56 Date of Service: Oct 18, 2025 Billing Provider: SIENA BRUCE MD Common Visit Codes: [id number] INP/OBS CARE(HIGH) Secondary Visit Codes: [id number] CARE PLAN 30 MINUTES SIENA BRUCE MD Oct 18, 2025 14:08
[2025-10-19] VITALS (9 sets, daily range): BP systolic 99–159; BP diastolic 64–78; PULSE 65–109; RESP 15–21; TEMP 97.4–98.8; O2SAT 92–100
[2025-10-19] MEDS: ONDANSETRON HCL 4 MG/2 ML VIAL IV PRN (00:47)
[2025-10-19 07:21] LABS: Hematocrit 40.4 % (36.0-46.0); Hemoglobin 14.1 g/dL (12.2-16.2); Mean Corpuscular Hemoglobin 32.1 pg (28.0-32.0); Mean Corpuscular Volume 91.7 fL (80.0-100.0); Nucleated Red Blood Cells % 0.1 %
[2025-10-19 07:48] LABS: Alanine Aminotransferase 16 U/L (7-40); Albumin 4.3 g/dL (3.2-4.8); Alkaline Phosphatase 80 U/L (46-116); Anion Gap 11 (5-15); BUN/Creatinine Ratio 15.7 (10.0-20.0); Bilirubin, Total 0.9 mg/dL (0.2-1.0); Blood Urea Nitrogen 13 mg/dL (9-23); Calcium 9.2 mg/dL (8.7-10.4); Carbon Dioxide 24 mmol/L (20-31); Chloride 102 mmol/L (98-107); Glucose 168 mg/dL (74-106); Magnesium 2.1 mg/dL (1.6-2.6); Potassium 4.1 mmol/L (3.5-5.1); Sodium 137 mmol/L (136-145); Total Protein 7.2 g/dL (5.7-8.2)
--- NOTE | 2025-10-19 08:24 | DVHPN2 ---
Subjective She had 1 loose bowel movement last night after the enema Today no bowel movements after she had 2 enemas Changes from previous H/P or p: Changes Eyes: No Pain, No Vision change, No Conjunctivae inflammation, No Eyelid inflammation, No Other, No Redness ENT: No Ear pain, No Ear discharge, No Nose pain, No Nose discharge, No Nose congestion, No Mouth pain, No Mouth swelling, No Throat pain, No Throat swelling, No Other Cardiovascular: No Chest Pain, No Palpitations, No Orthopnea, No Paroxysmal Noc. Dyspnea, No Edema, No Lt Headedness, No Other Respiratory: No Cough, No Dry, No Shortness of breath, No SOB with excertion, No Wheezing, No Hemoptysis, No Pleuritic Pain, No Sputum, No Other Gastrointestinal: Nausea; No Vomiting; Abdominal Pain; No Diarrhea; C onstipation; No Melena, No Hematochezia, No Other Genitourinary: No Dysuria, No Frequency, No Incontinence, No Hematuria, No Retention, No Other Musculoskeletal: No other, No neck pain, No shoulder pain, No arm pain, No back pain, No hand pain, No leg pain, No foot pain Skin: No Rash, No Lesions, No Jaundice, No Bruising, No Other Objective Vitals Vital Signs Date Time Temp Pulse Resp B/P (MAP) Pulse Ox O2 Delivery O2 Flow Rate FiO2 10/19/25 05:00 97.4 81 17 115/64 (81) 92 97.4 10/18/25 20:00 Room Air* 0 21 Intake/Output Intake and Output 10/19/25 07:00 Intake Total 300 ml Output Total 150 ml Balance 150 ml IV Total 300 ml Output Urine Total 150 ml # Voids 4 # Bowel Movements 2 General Appearance: Alert, Oriented X3, Cooperative Lungs: Clear to auscultation, Normal air movement Cardiovascular: Regular rate, Normal S1, Normal S2, No murmurs Abdomen: Normal bowel sounds, Other (Distended) Extremities: No edema Medications Current Medications Medications Dose Ordered Sig/Aayush Route Start Time Stop Time Status Last Admin Dose Admin Diagnostic Test (Pha) 1 strip Q6HR 10/18/25 00:00 10/19/25 06:00 1 STRIP Insulin Human Regular Q6HR SC 10/18/25 00:00 10/19/25 06:54 3 UNITS Dextrose 50 ml UD PRN IV 10/17/25 19:45 Sodium Chloride 1,000 ml @ 60 mls/hr [id number] IV 10/17/25 19:45 10/19/25 06:44 60 MLS/HR Acetaminophen/ Hydrocodone Bitart 1 tab Q4HP PRN PO 10/17/25 19:45 10/19/25 06:55 1 TAB Ondansetron HCl 4 mg Q4HP PRN IV 10/17/25 19:45 10/19/25 00:47 4 MG Acetaminophen 650 mg Q6HP PRN PO 10/17/25 19:45 Morphine Sulfate 2 mg Q4HPRN PRN IV 10/17/25 19:45 Nitroglycerin 0.4 mg Q5MINP PRN SL 10/17/25 19:45 Morphine Sulfate 2 mg Q30M PRN IV 10/17/25 19:45 Hydralazine HCl 10 mg Q6HP PRN IV 10/17/25 19:45 Metronidazole 100 ml @ 100 mls/hr Q8H IV 10/17/25 23:00 10/19/25 06:41 100 MLS/HR Sodium Biphosphate/ Sodium Phosphate 133 ml Q6HR WI 10/18/25 12:00 10/19/25 12:00 10/19/25 06:42 133 ML Alprazolam 0.25 mg Q8HP PRN PO 10/18/25 17:15 Laboratory Results Laboratory Tests 10/19/25 06:20 Chemistry Test 10/19/25 06:20 Albumin 4.3 g/dL (3.2-4.8) Calcium Level 9.2 mg/dL (8.7-10.4) Magnesium Level 2.1 mg/dL (1.6-2.6) Phosphorus Level 3.0 mg/dL (2.4-5.1) Total Protein 7.2 g/dL (5.7-8.2) LFT Test 10/19/25 06:20 Alanine Aminotransferase (ALT) 16 U/L (7-40) Alkaline Phosphatase 80 U/L (46-116) Aspartate Amino Transferase (AST) 21 U/L (13-40) Total Bilirubin 0.9 mg/dL (0.2-1.0) Urinalysis Test 10/17/25 18:23 Urine Color Light-yellow (Yellow) Urine Clarity Clear (Clear) Urine pH 5.5 (5.0-9.0) Urine Specific [place] > 1.050 (1.001-1.035) Urine Protein Negative (Negative) Urine Ketones Trace (Negative) Urine Blood 1+ /uL (Negative) H Urine Nitrite Negative (Negative) Urine Bilirubin Negative (Negative) Urine Urobilinogen Normal mg/dL (Negative) Urine Leukocyte Esterase Negative /uL (Negative) Urine RBC 3 /hpf (0 - 4) Urine Microscopic WBC 4 /HPF (0-5) Urine Squamous Epithelial Cells Few /hpf (<5) Urine Bacteria None seen /hpf (None Seen) Urine Yeast (Budding) Occasional /hpf (None Urine Glucose Normal mg/dL (Normal) Assessment/Plan Assessment/Plan Large bowel obstruction, colonic obstruction with transition point at the sigmoid colon Morbid obesity GERD Type 2 diabetes Hypertension Constipation Plan NPO GI consult for possible colonoscopy Surgical consult IV fluids Mineral oil Fleet enemas Monitor closely Full code Advance directives discussed for 18 minutes 10/19/2025: Bowel obstruction Constipation GI consult pending NPO Surgery is on the case IV fluids IV Flagyl Fleet enemas per surgery Looks like she might need a colonoscopy Monitor closely Plan discussed with: Patient My Orders Orders - SIENA BRUCE MD Procedure Category Date Status Time * Gi Dvh [employer] CONS 10/18/25 Transmitted 13:56 Alprazolam Tablet PHA 10/18/25 In Process (Xanax Tablet) 17:15 Date of Service: Oct 19, 2025 Billing Provider: SIENA BRUCE MD Common Visit Codes: [id number] INP/OBS CARE(HIGH) SIENA BRUCE MD Oct 19, 2025 08:24
--- NOTE | 2025-10-19 12:04 | DVHPN2 ---
Progress Note - Surgical Date Seen: Oct 19, 2025 Post op day Post op day: 0 Subjective Patient reports: Feels worse (Patient feels more distended, more abdominal pain and with some nausea, she is afebrile with vital stable.) Review of Systems: Deferred Objective Vital signs Vital Sign Date Time Temp Pulse Resp B/P (MAP) Pulse Ox O2 Delivery O2 Flow Rate FiO2 10/19/25 09:00 98.1 82 17 159/71 (100) 93 98.1 10/19/25 08:00 Room Air* 0 21 Total Intake and Output 10/18/25 10/18/25 10/19/25 15:00 23:00 07:00 Intake Total 100 ml 100 ml 100 ml Output Total 150 ml Balance 100 ml 100 ml -50 ml Medications Current Medications Medications Dose Ordered Sig/Aayush Route Start Time Stop Time Status Last Admin Dose Admin Diagnostic Test (Pha) 1 strip Q6HR 10/18/25 00:00 10/19/25 10:56 1 STRIP Insulin Human Regular Q6HR SC 10/18/25 00:00 10/19/25 06:54 3 UNITS Dextrose 50 ml UD PRN IV 10/17/25 19:45 Sodium Chloride 1,000 ml @ 60 mls/hr [id number] IV 10/17/25 19:45 10/19/25 06:44 60 MLS/HR Acetaminophen/ Hydrocodone Bitart 1 tab Q4HP PRN PO 10/17/25 19:45 10/19/25 10:56 1 TAB Ondansetron HCl 4 mg Q4HP PRN IV 10/17/25 19:45 10/19/25 00:47 4 MG Acetaminophen 650 mg Q6HP PRN PO 10/17/25 19:45 Morphine Sulfate 2 mg Q4HPRN PRN IV 10/17/25 19:45 Nitroglycerin 0.4 mg Q5MINP PRN SL 10/17/25 19:45 Morphine Sulfate 2 mg Q30M PRN IV 10/17/25 19:45 Hydralazine HCl 10 mg Q6HP PRN IV 10/17/25 19:45 Metronidazole 100 ml @ 100 mls/hr Q8H IV 10/17/25 23:00 10/19/25 06:41 100 MLS/HR Sodium Biphosphate/ Sodium Phosphate 133 ml Q6HR IN 10/18/25 12:00 10/19/25 12:00 10/19/25 06:42 133 ML Alprazolam 0.25 mg Q8HP PRN PO 10/18/25 17:15 Laboratory Laboratory Tests 10/19/25 06:20 Test 10/19/25 06:20 Range/Units Serum Glucose 168 H 74-106 mg/dL Examination: GENERAL:Normal (AAO x3), LUNGS:Normal (Nonlabored breathing with symmetric expansion), ABDOMEN:Abnormal (Distended, depressible, tender, no rebound, no guarding) Labs and/or images reviewed: Labs reviewed by me (No leukocytosis, lactic acid 1.1) Problem List/Assessment/Plan Problems: (1) Bowel obstruction Assessment and Plan Mrs. Calero is a 70-year-old female who presents with bloating for the past week and inability to have a bowel movement, but passing occasional flatus. CT shows colonic distention up to the sigmoid colon with a transition point, showing distal sigmoid colon decompression, no discrete mass identified, it looks like a stricture segment versus inflammatory process versus just collapse intestine versus non visible mass on imaging. I reviewed a prior CT of the abdomen pelvis from earlier in this year, that CT was done with oral contrast and it shows the same collapse in the same segment of the sigmoid with contrast making its way through it, but no proximal colonic distention. I would like the patient to get a colonoscopy prior to any possible surgical management. Interval: Patient with worsening distention this morning. We will forego a GI evaluation and take the patient directly to surgery for exploratory laparotomy, possible bowel resection, possible ostomy and all indicated procedures. Procedure, risks, benefits, complications, and alternatives discussed with the patient. Patient understands and agrees with surgical plan. 1. On-call to OR for exploratory laparotomy, possible bowel resection, possible ostomy, and all indicated procedures. 2. NPO My Orders My Orders Orders - CHERYLE KARIMI MD Procedure Category Date Status Time Obtain Consent For: ORDERS 10/19/25 Verified 11:55 Obtain Consent For CELESTINA 10/19/25 Verified Anesthesia 11:55 Plan discussed with Plan discussed with: Patient Visit Coding Surgery Date of Service if different f: Oct 19, 2025 Billing Provider: CHERYLE KARIMI MD Surgery Visit Codes: [id number] INP/OBS CARE(HIGH) CHERYLE KARIMI MD Oct 19, 2025 12:04
--- NOTE | 2025-10-19 12:32 | DVHCONRES ---
Date Seen: Oct 19, 2025 Resident Creating Document: FINESSE GAINES RESIDENT Referring Physician Dr He History of Present Illness 70-year-old female presented to the ER with a complaint of abdominal pain, bloating and constipation patient reports that her last bowel movement was 1 week back, reports that she has has been passing gas on and off. Reports crampy abdominal pain along with nausea. Reports generalized 40, and weakness. Denies any personal history of cancer. Last colonoscopy 5 years back. Past medical/surgical history: GERD, hypertension, constipation, diverticulosis on colonoscopy Social history: Denies smoking/drinking/drug use Family history notable for breast cancer in sister and cousin GI consultation was ordered by Dr. He for colonoscopy but the patient is currently undergoing ex lap. Patient currently undergoing exploratory laparotomy Family History: Cardiovascular disease G8 MOTHER Chronic obstructive pulmonary disease G8 MOTHER G8 FATHER Diabetes mellitus G8 MOTHER FH: breast cancer G8 MOTHER Allergies: Coded Allergies: Penicillins (Unverified Allergy, Unknown, 12/30/21) Home Meds Active Scripts Losartan Potassium (Losartan Potassium) 25 Mg Tab, 1 TAB PO DAILY, #30 TAB 1 Refill Prov:MIROSLAVA COLLAZO MD 05/17/25 Reported Medications Escitalopram Oxalate (Lexapro) 5 Mg Tab, 1 TAB PO DAILY, #30 TAB 2 Refills 05/13/25 Cholecalciferol (VITAMIN D3) 2,000 Unit Tab, 90897 TAB PO QWEEKLY, #30 TAB 5 Refills 05/12/25 Atorvastatin Calcium (Lipitor) 10 Mg Tab, 10 MG PO QPM, TAB 12/30/21 Losartan Potassium (Losartan Potassium) 25 Mg Tab, 25 MG PO DAILY, TAB 12/30/21 Current Medications Current Medications Medications (Trade) Dose Ordered Sig/Aayush Route PRN Reason Start Time Stop Time Status Last Admin Alprazolam (Xanax Tablet) 0.25 mg Q8HP PRN PO ANXIETY 10/18/25 17:15 Vital Signs Vital Signs Date Time Temp Pulse Resp B/P (MAP) Pulse Ox O2 Delivery O2 Flow Rate FiO2 10/19/25 09:00 98.1 82 17 159/71 (100) 93 98.1 10/19/25 08:00 Room Air* 0 21 Labs/Diagnostic Data Labs Test 10/19/25 10:52 10/19/25 06:20 10/17/25 18:23 10/17/25 13:07 Range/Units POC Glucose 156 H 70-106 mg/dl White Blood Count 3.5 #L 4.4-10.8 10^3/uL Red Blood Count 4.41 4.0-5.20 10^6/uL Hemoglobin 14.1 12.2-16.2 g/dL Hematocrit 40.4 36.0-46.0 % Mean Corpuscular Volume 91.7 80.0-100.0 fL Mean Corpuscular Hemoglobin 32.1 H 28.0-32.0 pg Mean Corpuscular Hemoglobin Concent 35.0 32.0-36.0 g/dL Red Cell Distribution Width 13.1 11.8-14.3 % Platelet Count 235 140-450 10^3/uL Mean Platelet Volume 7.6 6.9-10.8 fL Neutrophils (%) (Auto) 59.0 37.0-80.0 % Lymphocytes (%) (Auto) 27.4 10.0-50.0 % Monocytes (%) (Auto) 12.9 H 0.0-12.0 % Eosinophils (%) (Auto) 0.3 0.0-7.0 % Basophils (%) (Auto) 0.4 0.0-2.0 % Neutrophils # (Auto) 2.1 1.6-8.6 10 ^3/uL Lymphocytes # (Auto) 1.0 0.4-5.4 10 ^3/uL Monocytes # (Auto) 0.5 0-1.3 10 ^3/uL Eosinophils # (Auto) 0 0-0.8 10 ^3/uL Basophils # (Auto) 0 0-0.2 10 ^3/uL Nucleated Red Blood Cells 0.1 % Sodium Level 137 136-145 mmol/L Potassium Level 4.1 3.5-5.1 mmol/L Chloride Level 102 98-107 mmol/L Carbon Dioxide Level 24 20-31 mmol/L Anion Gap 11 5-15 Blood Urea Nitrogen 13 9-23 mg/dL Creatinine 0.83 0.550-1.02 mg/dL Glomerular Filtration Rate Calc 76 >90 mL/min BUN/Creatinine Ratio 15.7 10.0-20.0 Serum Glucose 168 H 74-106 mg/dL Lactic Acid Level 1.1 0.4-2.0 mmol/L Calcium Level 9.2 8.7-10.4 mg/dL Phosphorus Level 3.0 2.4-5.1 mg/dL Magnesium Level 2.1 1.6-2.6 mg/dL Total Bilirubin 0.9 0.2-1.0 mg/dL Aspartate Amino Transferase (AST) 21 13-40 U/L Alanine Aminotransferase (ALT) 16 7-40 U/L Alkaline Phosphatase 80 46-116 U/L Total Protein 7.2 5.7-8.2 g/dL Albumin 4.3 3.2-4.8 g/dL Urine Color Light-yellow Yellow Urine Clarity Clear Clear Urine pH 5.5 5.0-9.0 Urine Specific [place] > 1.050 H 1.001-1.035 Urine Protein Negative Negative Urine Ketones Trace Negative Urine Blood 1+ H Negative /uL Urine Nitrite Negative Negative Urine Bilirubin Negative Negative Urine Urobilinogen Normal Negative mg/dL Urine Leukocyte Esterase Negative Negative /uL Urine RBC 3 0 - 4 /hpf Urine Microscopic WBC 4 0-5 /HPF Urine Squamous Epithelial Cells Few <5 /hpf Urine Bacteria None seen None Seen /hpf Urine Yeast (Budding) Occasional None Seen /hpf Urine Glucose Normal Normal mg/dL Troponin I High Sensitivity 4 </=34 ng/L Lipase 40 12-53 U/L Assessment Large bowel obstruction secondary to stricture/infectious/neoplastic process Probably sepsis secondary to above Lactic acidosis Bilateral hepatic lobe cyst Likely 1.6 cm left adrenal adenoma Right inguinal hernia Uncontrolled hypertension History of 3 cm sliding-type hiatal hernia Mild gastritis CT abdomen with IV contrast shows Colonic obstruction with transition point at the sigmoid colon. There is thickening of the sigmoid colonic tissue where infectious/neoplastic process may be considered. Plan: Recommendation: Dr. Gupta Given that the patient has a undergoing ex lap, GI will stand by. We will await operative findings. Follow up with tumor markers Patient underwent upper EGD December 2021 which 3 cm sliding-type hiatal hernia, mild antral gastritis and superficial ulceration in the midbody of the stomach Recommend IV antibiotics, IV fluids Rest of management per primary team Case discussed with Dr. Gupta Plan discussed with: Patient FINESSE GAINES RESIDENT Oct 19, 2025 12:32
--- NOTE | 2025-10-19 12:34 | ECG ---
[facility] Test Date: 2025-10-19 Test Time: 12:32:22 Pat Name: JOVANI SOTO Department: Room: 0293T A Gender: F Investigative Shopper: ANIRUDH CLINTON RN : [id number] Requested By: YESSI DOVE Order Number: [id number] Reading MD: Truong Garcia Measurements Intervals [place] Rate: 94 P: 37 DC: 150 QRS: 40 QRSD: 80 T: 58 QT: 354 QTc: 442 Interpretive Statements Normal sinus rhythm Low voltage QRS Electronically Signed On 10-21-2025 17:37:45 PST by Truong Garcia Please click the below link to view image of tracing.
[2025-10-19] MEDS ORDERED: MIDAZOLAM HCL 2MG/2ML 2ml VIAL (1mg/ml) ONE (12:48)
[2025-10-19] MEDS ORDERED: HYDROmorphone HCL 2 MG/ML VL/or syr ONE (12:48)
[2025-10-19] MEDS ORDERED: fentaNYL CITRATE 100 MCG/2 ML VL ONE ×3 (12:48→15:46)
[2025-10-19] MEDS ORDERED: KETAMINE 50mg/ML 1ml syringe ONE (12:48)
[2025-10-19] MEDS ORDERED: PROPOFOL 10 MG/ML 20 ML IV ONE (12:49)
[2025-10-19] MEDS ORDERED: GLYCOPYRROLATE 0.2 MG/ML 1ML VIAL ONE (12:49)
[2025-10-19] MEDS ORDERED: PHENYLEPHRINE HCL 10 MG/ML VL ONE ×2 (12:49→14:58)
[2025-10-19] MEDS ORDERED: SUGAMMADEX 200mg/2ml Vial (100MG/ML) IV ONE (12:49)
[2025-10-19] MEDS ORDERED: KETOROLAC TROMETH 30 MG/ML 1ML VIAL ONE (12:49)
[2025-10-19] MEDS ORDERED: ROCURONIUM 10MG/ML 10ML VIAL IV ONE (12:49)
[2025-10-19] MEDS ORDERED: LIDOCAINE 2%HCL (LOCAL ANESTH.) INJ 20ML MDV ONE (12:49)
--- NOTE | 2025-10-19 13:21 | DVH ---
EXAM: XY CHEST XRAY 1 VIEW HISTORY: ng tube placement confirmation COMPARISON: XY CHEST PORTABLE on DOS: 05/14/25, XY CHEST XRAY 1 VIEW on DOS: 05/12/25, XY CHEST PORTABLE on DOS: 05/12/25, XR CHEST 1 VIEW on DOS: 05/09/25, XR CHEST 1 VIEW on DOS: 05/09/25 TECHNIQUE: Portable AP view of the chest was performed. FINDINGS: There is an NG tube with its tip in the gastric fundus about 14 cm distal to the GE junction. Lung volumes are low. There is scarring in the lung bases. No pneumothorax or pulmonary edema. There is central peribronchial thickening. Cardiac margins are obscured. IMPRESSION: 1. NG tube tip is in the stomach. 2. 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
[2025-10-19 13:23] LABS: INR 1.06 (0.9-1.15); Prothrombin Time 11.2 sec (9.3-11.8)
--- NOTE | 2025-10-19 14:34 | MEDREC ---
[facility] Intervention Section I [facility] Intervention: Review courses of therapy (Please consider adding ceftriaxone for gram negative coverage in IAI) FAMILIA MCCALLUM [facility] RESIDENT Oct 19, 2025 14:34
[2025-10-19] MEDS ORDERED: SODIUM CHLORIDE LOCK 10 ML ONE (14:58)
[2025-10-19] MEDS ORDERED: hydrALAZINE HCL 20 MG/ML VL IV PRN (16:45)
[2025-10-19] MEDS ORDERED: MORPHINE SULFATE 4 MG/ML SYR/VIAL IV PRN (16:45)
[2025-10-19] MEDS ORDERED: fentaNYL CITRATE 100 MCG/2 ML VL IV PRN (16:45)
[2025-10-19] MEDS ORDERED: FLUMAZENIL 0.1 MG/ML INJ 10ML MDV IV PRN (16:45)
[2025-10-19] MEDS ORDERED: HYDROmorphone HCL 2 MG/ML VL/or syr IV PRN ×2 (16:45)
[2025-10-19] MEDS ORDERED: NALOXONE HCL 0.4 MG/ML VIAL IV PRN (16:45)
[2025-10-19] MEDS ORDERED: ONDANSETRON HCL 4 MG/2 ML VIAL IV PRN (16:45)
--- NOTE | 2025-10-19 16:52 | DVHOP2 ---
Operative Report - 2 Report Details Date: 10/19/25 Preop Diagnosis: Large bowel obstruction Postop Diagnosis: Distal sigmoid mass Surgeon: Papa De La Paz MD School Psychological Examiner: Deo Matthew NP Anesthesiologist: Dr. Amadeo Schultz CRNA Anesthesia: General Consent: The patient was informed of the risks and benefits of the procedure. These include but are not limited to complications of anesthesia, postoperative infection, incomplete relief of symptoms, recurrence of symptoms, damage to blood vessels, nerves and tendons, deep venous thrombosis, pulmonary embolism and possible need for repeat surgery in the future. Complications: None Estimated Blood Loss: 25 mL Findings: Distal sigmoid mass causing large bowel obstruction. Distended large bowel and small bowel. Indications for Surgery: Large bowel obstruction Name of Procedure Performed Exploratory laparotomy, partial colectomy with end colostomy. Procedure Details Procedure Details: Upon arriving to the operating room the patient was transferred into the operating table and placed in the supine position with arms extended. General endotracheal anesthesia was induced. Covington was placed. Time-out was observed. Patient was prepped and draped in the standard sterile surgical fashion with chlorhexidine. I then proceeded to make a midline laparotomy incision from the suprapubic area to 3 cm above the umbilicus. I then carried the dissection down to the fascia, and once at the fascia I scored the anterior fascia below the umbilicus and gained entry into the peritoneal cavity with my digit. Utilizing my digit as protection, I elevated the fascia and opened the length of the fascia over my finger. I then immediately noted very distended small bowel loops. The small bowel loops were exteriorized to be able to see the area of concern. Retractors were placed and my attention was directed to the sigmoid area. Utilizing palpation I was able to find the diseased segment of sigmoid colon. The diseased segment was deep in the pelvis and adhered to the posterior pelvic wall. I then proceeded to identify normal colon approximally 7 cm proximal to the disease colon, I made a mesenteric rent, and transected the sigmoid colon with a ALEXANDER 75 mm green load. Utilizing hand retraction I then open the peritoneum on either side of the mesosigmoid, to gain some mobility of the disease colon, Since it was very adhered. Then utilizing my hand I palpated distally until I found disease-free segment, But it was adhered to the posterior pelvic wall. I was able to set it free utilizing blunt digital dissection, this gave more room to be able to work and also brought the disease free distal colon into view. I then proceeded to make a mesenteric rent in the distal healthy colon approximately 5 cm distal to the diseased segment. I then used a ALEXANDER 75 green load to transect the diseased colon distally. Now the diseased portion was more mobile and utilizing the ligature super jaw I was able to slowly and carefully transect the mesocolon of the affected segment, staying fairly close to the colon to avoid injuring important structures in the area. As I did this I was able to identify the main sigmoidal artery that fed the diseased segment, I isolated it, ligated it proximally and distally with 0 silk ties and transected it. Once the diseased segment of colon was completely free, it was passed off for pathology. I then placed a marking stitch on the distal colon with 4-0 Prolene. I then proceeded to inspect the small bowel entirely, starting at the cecum and making my way to ligament of Treitz. No injuries or other pathology noted. I then decided to milk some of the small intestinal contents back into the stomach, and while doing this I accidentally caused 2 serosal tears in the small bowel. Both the serosal tears were imbricated with a running 3-0 silk suture. After I was done milking the small bowel, I then proceeded to direct my attention to the proximal colon, I then opened the white line of Toldt to about mid descending colon to be able to gain mobility for the colostomy. I then used blunt digit dissection to separate the mesocolon colon from the retroperitoneum, this gave me adequate length to be able to bring the ostomy in the left lower quadrant. I then identify the site at the skin level in the left lower quadrant and performed a circular skin incision and carried it down to fascia. I then opened the fascia and rectus muscle in a cruciate fashion, and was able to pass 2 digits through the incision. I then brought up the proximal colon through the circular incision, it was in line and not twisted and without tension. I then laid blue towels over the midline incision and completely around the ostomy site, to protect in case of any spillage. I then proceeded to open the colon immediately below the staple line, it had healthy bleeding edges. I then proceeded to mature the colostomy, securing it circumferentially to the dermis in full-thickness fashion with 3-0 Vicryl. I placed enough suture circumferentially to not leave any gaps between the colon and the skin. Colostomy limb was tension-free and not twisted. I then placed a folded blue towel over the ostomy. We then changed gloves and utilize clean instruments to close the midline incision. Before starting to close I then took a look at the surgical site deep in the pelvis, and there was some slow oozing coming from the fatty tissue in the mesocolon, of the excised bowel, so I decided to place a sheet of Surgicel snow, and achieved hemostasis. No other abnormalities noted. I then proceeded to close the fascia with 2, running #1 loop PDS, tied at the center. I then copiously irrigated the midline subcutaneous tissue with a Betadine saline wash mixture. I then closed the deep subQ with a running 2-0 Vicryl. I then closed the deep dermis with a running 2- 0 Vicryl. And then I closed the skin with curtis. A mixture of Marcaine 0.25% and lidocaine 1% was used as local anesthetic. Midline wound was dressed with folded 4 x 4 gauze and Tegaderm. Colostomy bag was placed over colostomy. All counts were complete and correct at the end the procedure. Patient tolerated the procedure well and was transferred to PACU in stable condition. Specimen: Sigmoid colon Condition Stable Disposition Still a Patient PAPA KARIMI MD Oct 19, 2025 16:52
[2025-10-19] MEDS ORDERED: ACETAMINOPHEN 650 mg PER 20.3 mL UD GT SCH (18:00)
[2025-10-19] MEDS: KETOROLAC TROMETH 30 MG/ML 1ML VIAL IV SCH (21:45)
[2025-10-20] VITALS (14 sets, daily range): BP systolic 76–104; BP diastolic 37–64; PULSE 78–92; RESP 16–18; TEMP 97.1–97.9; O2SAT 94–100
[2025-10-20] MEDS: ACETAMINOPHEN 650 mg PER 20.3 mL UD NG SCH (00:56)
[2025-10-20] MEDS: SODIUM CHLORIDE 0.9% 500 ML IV ONE ×2 (05:45→09:30)
[2025-10-20 07:04] LABS: Hematocrit 32.4 % (36.0-46.0); Hemoglobin 11.2 g/dL (12.2-16.2); Mean Corpuscular Hemoglobin 31.9 pg (28.0-32.0); Mean Corpuscular Volume 92.2 fL (80.0-100.0); Nucleated Red Blood Cells % 0.0 %
[2025-10-20 07:18] LABS: Alanine Aminotransferase 16 U/L (7-40); Alkaline Phosphatase 49 U/L (46-116); Anion Gap 11 (5-15); BUN/Creatinine Ratio 14.1 (10.0-20.0); Bilirubin, Total 0.9 mg/dL (0.2-1.0); Carbon Dioxide 25 mmol/L (20-31); Chloride 104 mmol/L (98-107); Magnesium 1.7 mg/dL (1.6-2.6); Potassium 4.5 mmol/L (3.5-5.1); Sodium 140 mmol/L (136-145)
[2025-10-20 07:19] LABS: Albumin 3.0 g/dL (3.2-4.8); Blood Urea Nitrogen 30 mg/dL (9-23); Calcium 7.8 mg/dL (8.7-10.4); Glucose 178 mg/dL (74-106); Total Protein 5.1 g/dL (5.7-8.2)
[2025-10-20] MEDS ORDERED: SODIUM CHLORIDE 0.9% 1,000 ML IV SCH (08:30)
[2025-10-20] MEDS: SODIUM CHLORIDE 0.9% 1,000 ML IV SCH (09:35)
--- NOTE | 2025-10-20 11:55 | DVHPN2 ---
Subjective Day 1 status post surgery Blood pressure is low Creatinine is up Changes from previous H/P or p: Changes Eyes: No Pain, No Vision change, No Conjunctivae inflammation, No Eyelid inflammation, No Other, No Redness ENT: No Ear pain, No Ear discharge, No Nose pain, No Nose discharge, No Nose congestion, No Mouth pain, No Mouth swelling, No Throat pain, No Throat swelling, No Other Cardiovascular: No Chest Pain, No Palpitations, No Orthopnea, No Paroxysmal Noc. Dyspnea, No Edema, No Lt Headedness, No Other Respiratory: No Cough, No Dry, No Shortness of breath, No SOB with excertion, No Wheezing, No Hemoptysis, No Pleuritic Pain, No Sputum, No Other Gastrointestinal: Nausea; No Vomiting; Abdominal Pain; No Diarrhea; C onstipation; No Melena, No Hematochezia, No Other Genitourinary: No Dysuria, No Frequency, No Incontinence, No Hematuria, No Retention, No Other Musculoskeletal: No other, No neck pain, No shoulder pain, No arm pain, No back pain, No hand pain, No leg pain, No foot pain Skin: No Rash, No Lesions, No Jaundice, No Bruising, No Other Objective Vitals Vital Signs Date Time Temp Pulse Resp B/P (MAP) Pulse Ox O2 Delivery O2 Flow Rate FiO2 10/20/25 10:00 93/56 (68) 10/20/25 09:00 97.8 80 18 95 97.8 10/20/25 08:00 Room Air* 0 21 Intake/Output Intake and Output 10/20/25 07:00 Intake Total 200 ml Balance 200 ml IV Total 200 ml General Appearance: Alert, Oriented X3, Cooperative Lungs: Clear to auscultation, Normal air movement Cardiovascular: Regular rate, Normal S1, Normal S2, No murmurs Abdomen: Normal bowel sounds, Other (Distended) Extremities: No edema Medications Current Medications Medications Dose Ordered Sig/Aayush Route Start Time Stop Time Status Last Admin Dose Admin Diagnostic Test (Pha) 1 strip Q6HR 10/18/25 00:00 10/20/25 11:23 1 STRIP Insulin Human Regular Q6HR SC 10/18/25 00:00 10/20/25 06:58 3 UNITS Dextrose 50 ml UD PRN IV 10/17/25 19:45 Acetaminophen/ Hydrocodone Bitart 1 tab Q4HP PRN PO 10/17/25 19:45 Hold 10/19/25 10:56 1 TAB Ondansetron HCl 4 mg Q4HP PRN IV 10/17/25 19:45 10/19/25 00:47 4 MG Nitroglycerin 0.4 mg Q5MINP PRN SL 10/17/25 19:45 Morphine Sulfate 2 mg Q30M PRN IV 10/17/25 19:45 Hydralazine HCl 10 mg Q6HP PRN IV 10/17/25 19:45 Alprazolam 0.25 mg Q8HP PRN PO 10/18/25 17:15 Ketorolac Tromethamine 15 mg Q8HR IV 10/19/25 22:00 10/24/25 21:59 10/20/25 06:02 15 MG Morphine Sulfate 2 mg Q4HPRN PRN IV 10/19/25 16:45 Morphine Sulfate 4 mg Q4HPRN PRN IV 10/19/25 16:45 Hydromorphone HCl 0.5 mg Q4HPRN PRN IV 10/19/25 16:45 Acetaminophen 650 mg Q6HR NG 10/20/25 00:00 10/20/25 11:14 650 MG Metronidazole 100 ml @ 100 mls/hr Q8HR IV 10/19/25 22:00 10/20/25 06:03 100 MLS/HR Sodium Chloride 1,000 ml @ 125 mls/hr Q8H IV 10/20/25 09:30 10/20/25 09:35 125 MLS/HR Laboratory Results Laboratory Tests 10/20/25 06:36 Chemistry Test 10/20/25 06:36 Albumin 3.0 g/dL (3.2-4.8) L Calcium Level 7.8 mg/dL (8.7-10.4) L Magnesium Level 1.7 mg/dL (1.6-2.6) Phosphorus Level 3.3 mg/dL (2.4-5.1) Total Protein 5.1 g/dL (5.7-8.2) L Coagulation Test 10/19/25 12:52 Prothrombin Time 11.2 sec (9.3-11.8) Prothrombin Time INR 1.06 (0.9-1.15) LFT Test 10/20/25 06:36 Alanine Aminotransferase (ALT) 16 U/L (7-40) Alkaline Phosphatase 49 U/L (46-116) Aspartate Amino Transferase (AST) 30 U/L (13-40) Total Bilirubin 0.9 mg/dL (0.2-1.0) Urinalysis Test 10/17/25 18:23 Urine Color Light-yellow (Yellow) Urine Clarity Clear (Clear) Urine pH 5.5 (5.0-9.0) Urine Specific Seffner > 1.050 (1.001-1.035) Urine Protein Negative (Negative) Urine Ketones Trace (Negative) Urine Blood 1+ /uL (Negative) H Urine Nitrite Negative (Negative) Urine Bilirubin Negative (Negative) Urine Urobilinogen Normal mg/dL (Negative) Urine Leukocyte Esterase Negative /uL (Negative) Urine RBC 3 /hpf (0 - 4) Urine Microscopic WBC 4 /HPF (0-5) Urine Squamous Epithelial Cells Few /hpf (<5) Urine Bacteria None seen /hpf (None Seen) Urine Yeast (Budding) Occasional /hpf (None Urine Glucose Normal mg/dL (Normal) Assessment/Plan Assessment/Plan Large bowel obstruction, colonic obstruction with transition point at the sigmoid colon Morbid obesity GERD Type 2 diabetes Hypertension Constipation Plan NPO GI consult for possible colonoscopy Surgical consult IV fluids Mineral oil Fleet enemas Monitor closely Full code Advance directives discussed for 18 minutes 10/19/2025: Bowel obstruction Constipation GI consult pending NPO Surgery is on the case IV fluids IV Flagyl Fleet enemas per surgery Looks like she might need a colonoscopy Monitor closely 10/20/2025: LORIE: Continue IV fluids, give another bolus of 500 mL of normal saline IV antibiotics Flagyl Add Levaquin NPO NG tube suction Surgery is following Monitor closely Plan discussed with: Patient My Orders Orders - SIENA BRUCE MD Procedure Category Date Status Time * Wound Consult CONS 10/19/25 Transmitted Sodium Chloride 0.9% PHA 10/20/25 In Process 09:30 Date of Service: Oct 20, 2025 Billing Provider: SIENA BRUCE MD Common Visit Codes: [id number] INP/OBS CARE(HIGH) SIENA BRUCE MD Oct 20, 2025 11:55
--- NOTE | 2025-10-20 16:17 | DVHPN2 ---
Progress Note - Surgical Date Seen: Oct 20, 2025 Post op day Post op day: 1 Subjective Patient reports: Feels better (Patient feeling better this morning, just some postsurgical pain, less bloated, slightly hypotensive this morning but no tachycardia, minimal urine output) Review of Systems: Deferred Objective Vital signs Vital Sign Date Time Temp Pulse Resp B/P (MAP) Pulse Ox O2 Delivery O2 Flow Rate FiO2 10/20/25 13:00 97.8 84 18 92/58 (69) 94 97.8 10/20/25 08:00 Room Air* 0 21 Total Intake and Output 10/19/25 10/19/25 10/20/25 15:00 23:00 07:00 Intake Total 200 ml Balance 200 ml Medications Current Medications Medications Dose Ordered Sig/Aayush Route Start Time Stop Time Status Last Admin Dose Admin Diagnostic Test (Pha) 1 strip Q6HR 10/18/25 00:00 10/20/25 11:23 1 STRIP Insulin Human Regular Q6HR SC 10/18/25 00:00 10/20/25 06:58 3 UNITS Dextrose 50 ml UD PRN IV 10/17/25 19:45 Acetaminophen/ Hydrocodone Bitart 1 tab Q4HP PRN PO 10/17/25 19:45 Hold 10/19/25 10:56 1 TAB Ondansetron HCl 4 mg Q4HP PRN IV 10/17/25 19:45 10/19/25 00:47 4 MG Nitroglycerin 0.4 mg Q5MINP PRN SL 10/17/25 19:45 Morphine Sulfate 2 mg Q30M PRN IV 10/17/25 19:45 Hydralazine HCl 10 mg Q6HP PRN IV 10/17/25 19:45 Alprazolam 0.25 mg Q8HP PRN PO 10/18/25 17:15 Ketorolac Tromethamine 15 mg Q8HR IV 10/19/25 22:00 10/24/25 21:59 10/20/25 14:15 15 MG Morphine Sulfate 2 mg Q4HPRN PRN IV 10/19/25 16:45 Morphine Sulfate 4 mg Q4HPRN PRN IV 10/19/25 16:45 Hydromorphone HCl 0.5 mg Q4HPRN PRN IV 10/19/25 16:45 Acetaminophen 650 mg Q6HR NG 10/20/25 00:00 10/20/25 11:14 650 MG Metronidazole 100 ml @ 100 mls/hr Q8HR IV 10/19/25 22:00 10/20/25 14:15 100 MLS/HR Sodium Chloride 1,000 ml @ 125 mls/hr Q8H IV 10/20/25 09:30 10/20/25 09:35 125 MLS/HR Levofloxacin/ Dextrose 150 ml @ 100 mls/hr Q48H IV 10/22/25 13:00 Laboratory Laboratory Tests 10/20/25 06:36 Test 10/20/25 06:36 Range/Units Serum Glucose 178 H 74-106 mg/dL Examination: GENERAL:Normal (AAO x3), HEENT:Normal (NG tube in place with approximately 300-400 mL of enteric output), LUNGS:Normal (Nonlabored breathing with symmetric expansion), ABDOMEN:Abnormal (Mild distention, midline incision with some ecchymosis and without surrounding signs of infection, left abdominal ostomy with some stool in bag and pink mucosa, appropriate tenderness, no rebound no guarding), :Normal ([place] in place with minimal urine and dark) Labs and/or images reviewed: Labs reviewed by me (No leukocytosis hemoglobin 11.2 from 14.1) Problem List/Assessment/Plan Assessment and Plan Mrs. Calero is a 70-year-old female who presents with bloating for the past week and inability to have a bowel movement, but passing occasional flatus. CT shows colonic distention up to the sigmoid colon with a transition point, showing distal sigmoid colon decompression, no discrete mass identified, it looks like a stricture segment versus inflammatory process versus just collapse intestine versus non visible mass on imaging. I reviewed a prior CT of the abdomen pelvis from earlier in this year, that CT was done with oral contrast and it shows the same collapse in the same segment of the sigmoid with contrast making its way through it, but no proximal colonic distention. I would like the patient to get a colonoscopy prior to any possible surgical management. Interval: Patient is currently postop day 1 from exploratory laparotomy, partial sigmoid resection and end colostomy. Patient feeling better from an abdominal standpoint this morning. Ostomy with minimal stool in bag. Patient's pressures were soft this morning but not tachycardic and minimal urine output, given that the patient is mentating okay, not pale diaphoretic, it was likely due to fluid losses from the surgery +under resuscitation as she was only on maintenance IV fluids at 60 mL/hour. We will continue to monitor 1. IV fluids 125 mL/hour 2. NPO with NG tube to LIS 3. Pain and nausea control 4. Out of bed and ambulate 5. A.m. labs: CBC, BMP, Mag, phosphorus My Orders My Orders Orders - CHERYLE KARIMI MD Procedure Category Date Status Time Abdominal Binder CELESTINA 10/19/25 In Process 16:43 Ketorolac Injection PHA 10/19/25 In Process (Toradol Injection) 22:00 Morphine Sulfate PHA 10/19/25 In Process Injection 16:45 Hydromorphone PHA 10/19/25 In Process Injection (Dilaudid 16:45 Npo Except For CELESTINA 10/19/25 In Process Medications 16:43 Npo (Nothing By DIET 10/19/25 Transmitted Mouth) Diet Dinner Morphine Sulfate PHA 10/19/25 In Process Injection 16:45 Acetaminophen PHA 10/20/25 In Process Solution Oral 00:00 Phosphorus LAB 10/21/25 Verified 04:00 Plan discussed with Plan discussed with: Patient Visit Coding Surgery Date of Service if different f: Oct 20, 2025 Billing Provider: CHERYLE KARIMI MD Surgery Visit Codes: [id number] INP/OBS CARE(HIGH) CHERYLE KARIMI MD Oct 20, 2025 16:17
[2025-10-20] MEDS: SODIUM CHLORIDE 0.9% 1,000 ML IV ONE (18:00)
--- NOTE | 2025-10-20 18:05 | DVHPN2 ---
Progress Note Date Seen: Oct 20, 2025 Resident Creating Document: FINESSE GAINES RESIDENT Medical Necessity Reason Pt with a Central, PICC or Fol: Yes Subjective Review of Systems 70-year-old female presented to the ER with a complaint of abdominal pain, bloating and constipation patient reports that her last bowel movement was 1 week back, reports that she has has been passing gas on and off. Reports crampy abdominal pain along with nausea. Reports generalized 40, and weakness. Denies any personal history of cancer. Last colonoscopy 5 years back. Past medical/surgical history: GERD, hypertension, constipation, diverticulosis on colonoscopy Social history: Denies smoking/drinking/drug use Family history notable for breast cancer in sister and cousin GI consultation was ordered by Dr. He for colonoscopy but the patient is currently undergoing ex lap. Patient seen and examined at bedside. Reports abdominal pain on ambulation. NG to LIS draining biliary colored secretion. Abdominal binder in place. Dressing and suture clean dry and intact. Not passing gas. Objective vital signs Vital Sign Date Time Temp Pulse Resp B/P (MAP) Pulse Ox O2 Delivery O2 Flow Rate FiO2 10/20/25 17:00 97.1 92 16 95/52 (66) 94 97.1 10/20/25 08:00 Room Air* 0 21 Total Intake and Output 10/19/25 10/19/25 10/20/25 15:00 23:00 07:00 Intake Total 200 ml Balance 200 ml medications Current Medications Medications Dose Ordered Sig/Aayush Route Start Time Stop Time Status Last Admin Dose Admin Diagnostic Test (Pha) 1 strip Q6HR 10/18/25 00:00 10/20/25 16:58 1 STRIP Insulin Human Regular Q6HR SC 10/18/25 00:00 10/20/25 06:58 3 UNITS Dextrose 50 ml UD PRN IV 10/17/25 19:45 Acetaminophen/ Hydrocodone Bitart 1 tab Q4HP PRN PO 10/17/25 19:45 Hold 10/19/25 10:56 1 TAB Ondansetron HCl 4 mg Q4HP PRN IV 10/17/25 19:45 10/19/25 00:47 4 MG Nitroglycerin 0.4 mg Q5MINP PRN SL 10/17/25 19:45 Morphine Sulfate 2 mg Q30M PRN IV 10/17/25 19:45 Hydralazine HCl 10 mg Q6HP PRN IV 10/17/25 19:45 Alprazolam 0.25 mg Q8HP PRN PO 10/18/25 17:15 Ketorolac Tromethamine 15 mg Q8HR IV 10/19/25 22:00 10/24/25 21:59 10/20/25 14:15 15 MG Morphine Sulfate 2 mg Q4HPRN PRN IV 10/19/25 16:45 Morphine Sulfate 4 mg Q4HPRN PRN IV 10/19/25 16:45 Hydromorphone HCl 0.5 mg Q4HPRN PRN IV 10/19/25 16:45 Acetaminophen 650 mg Q6HR NG 10/20/25 00:00 10/20/25 16:52 650 MG Metronidazole 100 ml @ 100 mls/hr Q8HR IV 10/19/25 22:00 10/20/25 14:15 100 MLS/HR Sodium Chloride 1,000 ml @ 125 mls/hr Q8H IV 10/20/25 09:30 10/20/25 17:18 125 MLS/HR Levofloxacin/ Dextrose 150 ml @ 100 mls/hr Q48H IV 10/22/25 13:00 Examination Obese female lying in the bed comfortably, well conversational, no acute distress General: Obese, afebrile, palor, mucosae are moist Cardiovascular: Regular S1 and S2. No murmurs, gallops or rubs. No JVD elevation. No pedal edema Respiratory: Normal B/L air entry on room air. Clear lung sounds on auscultation Abdomen: Soft, nontender, nondistended, hypoactive, bowel sounds, no rebound tenderness, no organomegaly, no masses. Sutures clean dry intact. Abdominal binder seen. Genitourinary: Deferred MSK/skin: Mobilizes 4 limbs. Skin is dry and warm Neurological: No motor, no sensitive deficits, normal speech. Pupils are isocoric and reactive. Psych/Mental Status: A/Ox3 laboratory and microbiology Laboratory Tests 10/20/25 06:36 Test 10/20/25 06:36 Range/Units Serum Glucose 178 H 74-106 mg/dL Labs and/or images reviewed: Labs reviewed by me, Image(s) reviewed by me Problem List/Assessment/Plan Problem List/Assessment/Plan Large bowel obstruction secondary to stricture/infectious/neoplastic process status post partial sigmoid resection and end colostomy 10/19 Probably sepsis secondary to above Lactic acidosis Bilateral hepatic lobe cyst Likely 1.6 cm left adrenal adenoma Right inguinal hernia Uncontrolled hypertension History of 3 cm sliding-type hiatal hernia Mild gastritis CT abdomen with IV contrast shows Colonic obstruction with transition point at the sigmoid colon. There is thickening of the sigmoid colonic tissue where infectious/neoplastic process may be considered. Plan: Recommendation: Dr. Gupta Underwent ex lap 10/19. We will await operative findings. Follow up with path report. Continue NPO until patient passes gas and colostomy output is seen. NG to LIS. Continue IV fluids, monitor blood pressure closely. Recommend PT eval Follow up with tumor markers Patient underwent upper EGD December 2021 which 3 cm sliding-type hiatal hernia, mild antral gastritis and superficial ulceration in the midbody of the stomach Recommend IV antibiotics, IV fluids Rest of management per primary team Case discussed with Dr. Gupta Plan discussed with: Patient FINESSE GAINES RESIDENT Oct 20, 2025 18:05
[2025-10-20] MEDS: MORPHINE SULFATE 4 MG/ML SYR/VIAL IV PRN (23:24)
[2025-10-21] VITALS (7 sets, daily range): BP systolic 82–110; BP diastolic 54–66; PULSE 81–90; RESP 16–20; TEMP 97.6–98.2; O2SAT 91–98
[2025-10-21 06:30] LABS: Hematocrit 29.3 % (36.0-46.0); Hemoglobin 10.1 g/dL (12.2-16.2); Mean Corpuscular Hemoglobin 32.0 pg (28.0-32.0); Mean Corpuscular Volume 92.8 fL (80.0-100.0); Nucleated Red Blood Cells % 0.1 %
[2025-10-21 06:48] LABS: Alanine Aminotransferase 20 U/L (7-40); Alkaline Phosphatase 67 U/L (46-116); Anion Gap 9 (5-15); BUN/Creatinine Ratio 25.6 (10.0-20.0); Bilirubin, Total 0.5 mg/dL (0.2-1.0); Carbon Dioxide 24 mmol/L (20-31); Glucose 105 mg/dL (74-106); Magnesium 1.9 mg/dL (1.6-2.6); Potassium 3.9 mmol/L (3.5-5.1); Sodium 143 mmol/L (136-145)
[2025-10-21 06:52] LABS: Albumin 3.0 g/dL (3.2-4.8); Blood Urea Nitrogen 31 mg/dL (9-23); Calcium 7.8 mg/dL (8.7-10.4); Chloride 110 mmol/L (98-107); Total Protein 5.3 g/dL (5.7-8.2)
--- NOTE | 2025-10-21 10:24 | DVHPN2 ---
Subjective New complaints Feeling better Blood pressure is better but is still on the low side Changes from previous H/P or p: Changes Eyes: No Pain, No Vision change, No Conjunctivae inflammation, No Eyelid inflammation, No Other, No Redness ENT: No Ear pain, No Ear discharge, No Nose pain, No Nose discharge, No Nose congestion, No Mouth pain, No Mouth swelling, No Throat pain, No Throat swelling, No Other Cardiovascular: No Chest Pain, No Palpitations, No Orthopnea, No Paroxysmal Noc. Dyspnea, No Edema, No Lt Headedness, No Other Respiratory: No Cough, No Dry, No Shortness of breath, No SOB with excertion, No Wheezing, No Hemoptysis, No Pleuritic Pain, No Sputum, No Other Gastrointestinal: Nausea; No Vomiting; Abdominal Pain; No Diarrhea; C onstipation; No Melena, No Hematochezia, No Other Genitourinary: No Dysuria, No Frequency, No Incontinence, No Hematuria, No Retention, No Other Musculoskeletal: No other, No neck pain, No shoulder pain, No arm pain, No back pain, No hand pain, No leg pain, No foot pain Skin: No Rash, No Lesions, No Jaundice, No Bruising, No Other Objective Vitals Vital Signs Date Time Temp Pulse Resp B/P (MAP) Pulse Ox O2 Delivery O2 Flow Rate FiO2 10/21/25 09:00 97.7 84 16 82/59 (67) 97 97.7 10/20/25 20:00 Room Air* 0 21 Intake/Output Intake and Output 10/21/25 07:00 Intake Total 2455 ml Output Total 3200 ml Balance -745 ml Intake Oral 480 ml IV Total 1975 ml Output Urine Total 500 ml Stool Total 1600 ml Gastric Drainage Total 1100 ml General Appearance: Alert, Oriented X3, Cooperative Lungs: Clear to auscultation, Normal air movement Cardiovascular: Regular rate, Normal S1, Normal S2, No murmurs Abdomen: Normal bowel sounds, Other (Distended) Extremities: No edema Medications Current Medications Medications Dose Ordered Sig/Aayush Route Start Time Stop Time Status Last Admin Dose Admin Diagnostic Test (Pha) 1 strip Q6HR 10/18/25 00:00 10/21/25 06:27 1 STRIP Insulin Human Regular Q6HR SC 10/18/25 00:00 10/20/25 06:58 3 UNITS Dextrose 50 ml UD PRN IV 10/17/25 19:45 Acetaminophen/ Hydrocodone Bitart 1 tab Q4HP PRN PO 10/17/25 19:45 Hold 10/19/25 10:56 1 TAB Ondansetron HCl 4 mg Q4HP PRN IV 10/17/25 19:45 10/19/25 00:47 4 MG Nitroglycerin 0.4 mg Q5MINP PRN SL 10/17/25 19:45 Morphine Sulfate 2 mg Q30M PRN IV 10/17/25 19:45 Hydralazine HCl 10 mg Q6HP PRN IV 10/17/25 19:45 Alprazolam 0.25 mg Q8HP PRN PO 10/18/25 17:15 Ketorolac Tromethamine 15 mg Q8HR IV 10/19/25 22:00 10/24/25 21:59 10/21/25 06:25 15 MG Morphine Sulfate 2 mg Q4HPRN PRN IV 10/19/25 16:45 10/20/25 23:24 2 MG Morphine Sulfate 4 mg Q4HPRN PRN IV 10/19/25 16:45 Hydromorphone HCl 0.5 mg Q4HPRN PRN IV 10/19/25 16:45 Acetaminophen 650 mg Q6HR NG 10/20/25 00:00 10/20/25 16:52 650 MG Metronidazole 100 ml @ 100 mls/hr Q8HR IV 10/19/25 22:00 10/21/25 06:25 100 MLS/HR Sodium Chloride 1,000 ml @ 125 mls/hr Q8H IV 10/20/25 09:30 10/21/25 01:30 125 MLS/HR Levofloxacin/ Dextrose 150 ml @ 100 mls/hr Q48H IV 10/22/25 13:00 Laboratory Results Laboratory Tests 10/21/25 05:35 Chemistry Test 10/21/25 05:35 Albumin 3.0 g/dL (3.2-4.8) L Calcium Level 7.8 mg/dL (8.7-10.4) L Magnesium Level 1.9 mg/dL (1.6-2.6) Phosphorus Level Pending Total Protein 5.3 g/dL (5.7-8.2) L LFT Test 10/21/25 05:35 Alanine Aminotransferase (ALT) 20 U/L (7-40) Alkaline Phosphatase 67 U/L (46-116) Aspartate Amino Transferase (AST) Pending Total Bilirubin 0.5 mg/dL (0.2-1.0) Urinalysis Test 10/17/25 18:23 Urine Color Light-yellow (Yellow) Urine Clarity Clear (Clear) Urine pH 5.5 (5.0-9.0) Urine Specific Snyder > 1.050 (1.001-1.035) Urine Protein Negative (Negative) Urine Ketones Trace (Negative) Urine Blood 1+ /uL (Negative) H Urine Nitrite Negative (Negative) Urine Bilirubin Negative (Negative) Urine Urobilinogen Normal mg/dL (Negative) Urine Leukocyte Esterase Negative /uL (Negative) Urine RBC 3 /hpf (0 - 4) Urine Microscopic WBC 4 /HPF (0-5) Urine Squamous Epithelial Cells Few /hpf (<5) Urine Bacteria None seen /hpf (None Seen) Urine Yeast (Budding) Occasional /hpf (None Urine Glucose Normal mg/dL (Normal) Assessment/Plan Assessment/Plan Large bowel obstruction, colonic obstruction with transition point at the sigmoid colon Morbid obesity GERD Type 2 diabetes Hypertension Constipation Plan NPO GI consult for possible colonoscopy Surgical consult IV fluids Mineral oil Fleet enemas Monitor closely Full code Advance directives discussed for 18 minutes 10/19/2025: Bowel obstruction Constipation GI consult pending NPO Surgery is on the case IV fluids IV Flagyl Fleet enemas per surgery Looks like she might need a colonoscopy Monitor closely 10/20/2025: LORIE: Continue IV fluids, give another bolus of 500 mL of normal saline IV antibiotics Flagyl Add Levaquin NPO NG tube suction Surgery is following Monitor closely 10/21/2025: Continue IV fluids Give 1 more bolus of 500 mL NS NPO NG tube suction Monitor closely Plan discussed with: Patient My Orders Orders - SIENA BRUCE MD Procedure Category Date Status Time Comprehensive LAB 10/21/25 In Process Metabolic Panel 04:00 Magnesium LAB 10/21/25 In Process 04:00 Levofloxacin 750mg PHA 10/22/25 In Process (Levaquin) 13:00 Cleanse Wound With CELESTINA 10/20/25 In Process Mild Soap A 12:45 * Dietary Consult CONS 10/20/25 Transmitted 18:54 Phosphorus LAB 10/21/25 In Process 04:00 Date of Service: Oct 21, 2025 Billing Provider: SIENA BRUCE MD Common Visit Codes: [id number] INP/OBS CARE(HIGH) SIENA BRUCE MD Oct 21, 2025 10:24
[2025-10-21] MEDS: SODIUM CHLORIDE 0.9% 500 ML IV ONE (11:43)
--- NOTE | 2025-10-21 14:03 | DVHPN2 ---
Progress Note - Surgical Date Seen: Oct 21, 2025 Post op day Post op day: 2 Subjective Patient reports: Feels better (No abdominal pain complaints, complaining of the NG tube bothering her, afebrile with vital stable) Review of Systems: Deferred Objective Vital signs Vital Sign Date Time Temp Pulse Resp B/P (MAP) Pulse Ox O2 Delivery O2 Flow Rate FiO2 10/21/25 13:00 97.6 86 20 107/66 (80) 97 97.6 10/20/25 20:00 Room Air* 0 21 Total Intake and Output 10/20/25 10/20/25 10/21/25 15:00 23:00 07:00 Intake Total 600 ml 1855 ml 0 ml Output Total 2150 ml 1050 ml Balance 600 ml -295 ml -1050 ml Medications Current Medications Medications Dose Ordered Sig/Aayush Route Start Time Stop Time Status Last Admin Dose Admin Diagnostic Test (Pha) 1 strip Q6HR 10/18/25 00:00 10/21/25 11:45 1 STRIP Insulin Human Regular Q6HR SC 10/18/25 00:00 10/20/25 06:58 3 UNITS Dextrose 50 ml UD PRN IV 10/17/25 19:45 Acetaminophen/ Hydrocodone Bitart 1 tab Q4HP PRN PO 10/17/25 19:45 Hold 10/19/25 10:56 1 TAB Ondansetron HCl 4 mg Q4HP PRN IV 10/17/25 19:45 10/19/25 00:47 4 MG Nitroglycerin 0.4 mg Q5MINP PRN SL 10/17/25 19:45 Morphine Sulfate 2 mg Q30M PRN IV 10/17/25 19:45 Hydralazine HCl 10 mg Q6HP PRN IV 10/17/25 19:45 Alprazolam 0.25 mg Q8HP PRN PO 10/18/25 17:15 Ketorolac Tromethamine 15 mg Q8HR IV 10/19/25 22:00 10/24/25 21:59 10/21/25 06:25 15 MG Morphine Sulfate 2 mg Q4HPRN PRN IV 10/19/25 16:45 10/20/25 23:24 2 MG Morphine Sulfate 4 mg Q4HPRN PRN IV 10/19/25 16:45 Hydromorphone HCl 0.5 mg Q4HPRN PRN IV 10/19/25 16:45 Acetaminophen 650 mg Q6HR NG 10/20/25 00:00 10/21/25 11:43 650 MG Metronidazole 100 ml @ 100 mls/hr Q8HR IV 10/19/25 22:00 10/21/25 06:25 100 MLS/HR Sodium Chloride 1,000 ml @ 125 mls/hr Q8H IV 10/20/25 09:30 10/21/25 01:30 125 MLS/HR Levofloxacin/ Dextrose 150 ml @ 100 mls/hr DAILY IV 10/21/25 10:46 10/21/25 11:43 100 MLS/HR Laboratory Laboratory Tests 10/21/25 05:35 Test 10/21/25 05:35 Range/Units Serum Glucose 105 74-106 mg/dL Examination: GENERAL:Normal (AAO x3), HEENT:Normal (NG tube in place had 1.1 L of bilious output), LUNGS:Normal (Nonlabored breathing with symmetric expansion), ABDOMEN:Abnormal (Mild distention, midline incision with curtis in place and surrounding ecchymosis, left lower quadrant ostomy with pink mucosa and stool in bag has produced 1.6 L 24 hours, appropriate tenderness) Labs and/or images reviewed: Labs reviewed by me (No leukocytosis, hemoglobin stable, creatinine 1.21 from 2.13) Problem List/Assessment/Plan Assessment and Plan Mrs. Calero is a 70-year-old female who presents with bloating for the past week and inability to have a bowel movement, but passing occasional flatus. CT shows colonic distention up to the sigmoid colon with a transition point, showing distal sigmoid colon decompression, no discrete mass identified, it looks like a stricture segment versus inflammatory process versus just collapse intestine versus non visible mass on imaging. I reviewed a prior CT of the abdomen pelvis from earlier in this year, that CT was done with oral contrast and it shows the same collapse in the same segment of the sigmoid with contrast making its way through it, but no proximal colonic distention. I would like the patient to get a colonoscopy prior to any possible surgical management. Interval: Patient is currently postop day 2 from exploratory laparotomy, partial sigmoid resection and end colostomy. Vitals have been stable since yesterday, she likely was behind on fluids. Having a lot of ostomy production 1.6 L in 24 hours. NG tube put out 1.1 L in 24 hours we will continue with the NG tube to suctioned and reassess in the morning. We will continue with maintenance IV fluids. 1. IV fluids 125 mL/hour 2. NPO with NG tube to LIS 3. Pain and nausea control 4. Out of bed and ambulate 5. A.m. labs: CBC, BMP, Mag, phosphorus 6. Incentive spirometer Plan discussed with Plan discussed with: Patient Visit Coding Surgery Date of Service if different f: Oct 21, 2025 Billing Provider: CHERYLE KARIMI MD Surgery Visit Codes: [id number] INP/OBS CARE(HIGH) CHERYLE KARIMI MD Oct 21, 2025 14:03
--- NOTE | 2025-10-21 17:31 | DVHPN2 ---
Progress Note Date Seen: Oct 21, 2025 Resident Creating Document: FINESSE GAINES RESIDENT Medical Necessity Reason Pt with a Central, PICC or Fol: Yes Subjective Review of Systems 70-year-old female presented to the ER with a complaint of abdominal pain, bloating and constipation patient reports that her last bowel movement was 1 week back, reports that she has has been passing gas on and off. Reports crampy abdominal pain along with nausea. Reports generalized 40, and weakness. Denies any personal history of cancer. Last colonoscopy 5 years back. Past medical/surgical history: GERD, hypertension, constipation, diverticulosis on colonoscopy Social history: Denies smoking/drinking/drug use Family history notable for breast cancer in sister and cousin GI consultation was ordered by Dr. He for colonoscopy but the patient is currently undergoing ex lap. Patient seen and examined at bedside. Reports abdominal pain on ambulation. NG to LIS draining biliary colored secretion. Abdominal binder in place. Dressing and suture clean dry and intact. Not passing gas. 10/21-patient seen and examined, NG to LIS, on ice chips, bowel sounds normoactive. Colostomy output brownish Objective vital signs Vital Sign Date Time Temp Pulse Resp B/P (MAP) Pulse Ox O2 Delivery O2 Flow Rate FiO2 10/21/25 13:00 97.6 86 20 107/66 (80) 97 97.6 10/20/25 20:00 Room Air* 0 21 Total Intake and Output 10/20/25 10/20/25 10/21/25 15:00 23:00 07:00 Intake Total 600 ml 1855 ml 0 ml Output Total 2150 ml 1050 ml Balance 600 ml -295 ml -1050 ml medications Current Medications Medications Dose Ordered Sig/Aayush Route Start Time Stop Time Status Last Admin Dose Admin Diagnostic Test (Pha) 1 strip Q6HR 10/18/25 00:00 10/21/25 11:45 1 STRIP Insulin Human Regular Q6HR SC 10/18/25 00:00 10/20/25 06:58 3 UNITS Dextrose 50 ml UD PRN IV 10/17/25 19:45 Acetaminophen/ Hydrocodone Bitart 1 tab Q4HP PRN PO 10/17/25 19:45 Hold 10/19/25 10:56 1 TAB Ondansetron HCl 4 mg Q4HP PRN IV 10/17/25 19:45 10/19/25 00:47 4 MG Nitroglycerin 0.4 mg Q5MINP PRN SL 10/17/25 19:45 Morphine Sulfate 2 mg Q30M PRN IV 10/17/25 19:45 Hydralazine HCl 10 mg Q6HP PRN IV 10/17/25 19:45 Alprazolam 0.25 mg Q8HP PRN PO 10/18/25 17:15 Ketorolac Tromethamine 15 mg Q8HR IV 10/19/25 22:00 10/24/25 21:59 10/21/25 14:53 15 MG Morphine Sulfate 2 mg Q4HPRN PRN IV 10/19/25 16:45 10/20/25 23:24 2 MG Morphine Sulfate 4 mg Q4HPRN PRN IV 10/19/25 16:45 Hydromorphone HCl 0.5 mg Q4HPRN PRN IV 10/19/25 16:45 Acetaminophen 650 mg Q6HR NG 10/20/25 00:00 10/21/25 11:43 650 MG Metronidazole 100 ml @ 100 mls/hr Q8HR IV 10/19/25 22:00 10/21/25 14:53 100 MLS/HR Sodium Chloride 1,000 ml @ 125 mls/hr Q8H IV 10/20/25 09:30 10/21/25 01:30 125 MLS/HR Levofloxacin/ Dextrose 150 ml @ 100 mls/hr DAILY IV 10/21/25 10:46 10/21/25 11:43 100 MLS/HR Pantoprazole Sodium 40 mg DAILY IV 10/22/25 10:00 Examination Obese female lying in the bed comfortably, well conversational, no acute distress General: Obese, afebrile, palor, mucosae are moist Cardiovascular: Regular S1 and S2. No murmurs, gallops or rubs. No JVD elevation. No pedal edema Respiratory: Normal B/L air entry on room air. Clear lung sounds on auscultation Abdomen: Soft, nontender, nondistended, normoactive, bowel sounds, no rebound tenderness, no organomegaly, no masses. Sutures clean dry intact. Abdominal binder seen. Genitourinary: Deferred MSK/skin: Mobilizes 4 limbs. Skin is dry and warm Neurological: No motor, no sensitive deficits, normal speech. Pupils are isocoric and reactive. Psych/Mental Status: A/Ox3 laboratory and microbiology Laboratory Tests 10/21/25 05:35 Test 10/21/25 05:35 Range/Units Serum Glucose 105 74-106 mg/dL Labs and/or images reviewed: Labs reviewed by me, Image(s) reviewed by me Problem List/Assessment/Plan Problem List/Assessment/Plan Large bowel obstruction secondary to stricture/infectious/neoplastic process status post partial sigmoid resection and end colostomy 10/19 Probably sepsis secondary to above Lactic acidosis Bilateral hepatic lobe cyst Likely 1.6 cm left adrenal adenoma Right inguinal hernia Uncontrolled hypertension History of 3 cm sliding-type hiatal hernia Mild gastritis CT abdomen with IV contrast shows Colonic obstruction with transition point at the sigmoid colon. There is thickening of the sigmoid colonic tissue where infectious/neoplastic process may be considered. Plan: Recommendation: Dr. Gupta Underwent ex lap 10/19. We will await operative findings. Follow up with path report. Continue ice chips, NG to LIS. Continue IV fluids, monitor blood pressure closely. Recommend PT eval Protonix 40 mg IV daily Follow up with tumor markers Patient underwent upper EGD December 2021 which 3 cm sliding-type hiatal hernia, mild antral gastritis and superficial ulceration in the midbody of the stomach Recommend IV antibiotics, IV fluids Rest of management per primary team Case discussed with Dr. Gupta Plan discussed with: Patient, Spouse My Orders My Orders Orders - FINESSE GAINES Procedure Category Date Status Time Pantoprazole PHA 10/22/25 In Process (Protonix) 10:00 Dietary Evaluation Review Comments: Nutrition Recommendation: 1) Advance to Soft diet as medically feasible 2) Consider TPN if NPO>7 days 3) Monitor NPO status, lab values, weight trend, and I/O Expected Outcomes/Goals: GI symptoms to improve Intake to meet >75% estimated needs FU 2-3 days Fluid Accumulation (N/A): N/A Protein Calorie Malnutrition: N/A Is there a minimum of two crit: FINESSE Beal RESIDENT Oct 21, 2025 17:31
[2025-10-21] MEDS: PANTOPRAZOLE 40 MG/10 ML VIAL INJ IV ONE (18:47)
[2025-10-22 06:28] LABS: Hematocrit 27.6 % (36.0-46.0); Hemoglobin 9.4 g/dL (12.2-16.2); Mean Corpuscular Hemoglobin 31.8 pg (28.0-32.0); Mean Corpuscular Volume 93.2 fL (80.0-100.0); Nucleated Red Blood Cells % 0.1 %
[2025-10-22 06:49] LABS: Alanine Aminotransferase 21 U/L (7-40); Alkaline Phosphatase 56 U/L (46-116); Anion Gap 10 (5-15); BUN/Creatinine Ratio 29.9 (10.0-20.0); Bilirubin, Total 0.3 mg/dL (0.2-1.0); Carbon Dioxide 24 mmol/L (20-31); Glucose 89 mg/dL (74-106); Magnesium 2.0 mg/dL (1.6-2.6); Potassium 3.7 mmol/L (3.5-5.1)
[2025-10-22 06:51] LABS: Albumin 2.6 g/dL (3.2-4.8); Blood Urea Nitrogen 23 mg/dL (9-23); Calcium 7.7 mg/dL (8.7-10.4); Chloride 112 mmol/L (98-107); Sodium 146 mmol/L (136-145); Total Protein 4.6 g/dL (5.7-8.2)
[2025-10-22 08:00] VITALS: PULSE 70; PULSE 72; RESP 18; O2SAT 98
[2025-10-22 09:00] VITALS: BP 135/85; PULSE 72; RESP 18; TEMP 98; O2SAT 99
[2025-10-22] MEDS: PANTOPRAZOLE 40 MG/10 ML VIAL INJ IV SCH (09:34)
--- NOTE | 2025-10-22 10:16 | DVHPN2 ---
Progress Note - Surgical Date Seen: Oct 22, 2025 Post op day Post op day: 3 Subjective Patient reports: Feels better (Patient feeling better, no abdominal pain complaints, not bloated, afebrile with vital stable.) Review of Systems: Deferred Objective Vital signs Vital Sign Date Time Temp Pulse Resp B/P (MAP) Pulse Ox O2 Delivery O2 Flow Rate FiO2 10/22/25 09:00 98.0 72 18 135/85 (102) 99 98.0 10/21/25 20:00 Room Air* 0 21 Total Intake and Output 10/21/25 10/21/25 10/22/25 15:00 23:00 07:00 Intake Total 100 ml 100 ml Output Total 490 ml 375 ml Balance -390 ml -275 ml Medications Current Medications Medications Dose Ordered Sig/Aayush Route Start Time Stop Time Status Last Admin Dose Admin Diagnostic Test (Pha) 1 strip Q6HR 10/18/25 00:00 10/22/25 05:56 1 STRIP Insulin Human Regular Q6HR SC 10/18/25 00:00 10/20/25 06:58 3 UNITS Dextrose 50 ml UD PRN IV 10/17/25 19:45 Acetaminophen/ Hydrocodone Bitart 1 tab Q4HP PRN PO 10/17/25 19:45 Hold 10/19/25 10:56 1 TAB Ondansetron HCl 4 mg Q4HP PRN IV 10/17/25 19:45 10/19/25 00:47 4 MG Nitroglycerin 0.4 mg Q5MINP PRN SL 10/17/25 19:45 Morphine Sulfate 2 mg Q30M PRN IV 10/17/25 19:45 Hydralazine HCl 10 mg Q6HP PRN IV 10/17/25 19:45 Alprazolam 0.25 mg Q8HP PRN PO 10/18/25 17:15 Ketorolac Tromethamine 15 mg Q8HR IV 10/19/25 22:00 10/24/25 21:59 10/22/25 06:10 15 MG Morphine Sulfate 2 mg Q4HPRN PRN IV 10/19/25 16:45 10/20/25 23:24 2 MG Morphine Sulfate 4 mg Q4HPRN PRN IV 10/19/25 16:45 Hydromorphone HCl 0.5 mg Q4HPRN PRN IV 10/19/25 16:45 Acetaminophen 650 mg Q6HR NG 10/20/25 00:00 10/22/25 00:48 650 MG Metronidazole 100 ml @ 100 mls/hr Q8HR IV 10/19/25 22:00 10/22/25 06:10 100 MLS/HR Sodium Chloride 1,000 ml @ 125 mls/hr Q8H IV 10/20/25 09:30 10/22/25 01:30 125 MLS/HR Levofloxacin/ Dextrose 150 ml @ 100 mls/hr DAILY IV 10/21/25 10:46 10/22/25 09:34 100 MLS/HR Pantoprazole Sodium 40 mg DAILY IV 10/22/25 10:00 10/22/25 09:34 40 MG Laboratory Laboratory Tests 10/22/25 05:26 Test 10/22/25 05:26 Range/Units Serum Glucose 89 74-106 mg/dL Examination: GENERAL:Normal (AAO x3), HEENT:Normal (NG tube in place with 150 mL gastric output over 24 hours), LUNGS:Normal (Nonlabored breathing symmetric expansion), ABDOMEN:Normal (Nondistended, soft, depressible, midline incision with curtis in place and surrounding ecchymosis, left abdominal ostomy with pink mucosa and stool production 340 mL of stool so far) Labs and/or images reviewed: Labs reviewed by me (No leukocytosis) Problem List/Assessment/Plan Assessment and Plan Mrs. Calero is a 70-year-old female who presents with bloating for the past week and inability to have a bowel movement, but passing occasional flatus. CT shows colonic distention up to the sigmoid colon with a transition point, showing distal sigmoid colon decompression, no discrete mass identified, it looks like a stricture segment versus inflammatory process versus just collapse intestine versus non visible mass on imaging. I reviewed a prior CT of the abdomen pelvis from earlier in this year, that CT was done with oral contrast and it shows the same collapse in the same segment of the sigmoid with contrast making its way through it, but no proximal colonic distention. I would like the patient to get a colonoscopy prior to any possible surgical management. Interval: Patient is currently postop day 3 from exploratory laparotomy, partial sigmoid resection and end colostomy. Patient feeling better this morning, no abdominal pain complaints, good production from ostomy, only 150 mL of gastric output through the NG tube. I will start the patient on clear liquid diets this morning while clamping the NG tube, if she tolerates then discontinue NG tube and advance her to full liquid diet. And keep her on full liquid diet until tomorrow 1. IV fluids 125 mL/hour, decreased rate to 50 mL/hour if she tolerates liquid diet 2. Clear liquid diet 3. Clamp NG tube, if she tolerates clear liquid diet, discontinue NG tube prior to advance into a full liquid diet 3. Pain and nausea control 4. Out of bed and ambulate 5. A.m. labs: CBC, BMP, Mag, phosphorus 6. Incentive spirometer My Orders My Orders Orders - CHERYLE KARIMI MD Procedure Category Date Status Time Incentive Spirometry ORDERS 10/21/25 Transmitted Q 1hr 14:03 Potassium Phosphate PHA 10/22/25 In Process 09:30 Clamp Ngt ORDERS 10/22/25 Transmitted 10:09 Clear Liq Diet DIET 10/22/25 Transmitted Lunch Complete Blood Count LAB 10/23/25 Verified 04:00 Basic Metabolic Panel LAB 10/23/25 Verified 04:00 Magnesium LAB 10/23/25 Verified 04:00 Phosphorus LAB 10/23/25 Verified 04:00 Plan discussed with Plan discussed with: Patient Visit Coding Surgery Date of Service if different f: Oct 22, 2025 Billing Provider: CHERYLE KARIMI MD Surgery Visit Codes: [id number] INP/OBS CARE(HIGH) CHERYLE KARIMI MD Oct 22, 2025 10:16
[2025-10-22] MEDS: POTASSIUM PHOSPHATE 26.4 MEQ in SODIUM CHL 0.9% 100 ML IV ONE (12:22)
[2025-10-22 12:58] VITALS: BP 135/79; PULSE 69; RESP 17; TEMP 98.2; O2SAT 99
--- NOTE | 2025-10-22 13:22 | DVHPN2 ---
Subjective Doing well Changes from previous H/P or p: Changes Eyes: No Pain, No Vision change, No Conjunctivae inflammation, No Eyelid inflammation, No Other, No Redness ENT: No Ear pain, No Ear discharge, No Nose pain, No Nose discharge, No Nose congestion, No Mouth pain, No Mouth swelling, No Throat pain, No Throat swelling, No Other Cardiovascular: No Chest Pain, No Palpitations, No Orthopnea, No Paroxysmal Noc. Dyspnea, No Edema, No Lt Headedness, No Other Respiratory: No Cough, No Dry, No Shortness of breath, No SOB with excertion, No Wheezing, No Hemoptysis, No Pleuritic Pain, No Sputum, No Other Gastrointestinal: Nausea; No Vomiting; Abdominal Pain; No Diarrhea; C onstipation; No Melena, No Hematochezia, No Other Genitourinary: No Dysuria, No Frequency, No Incontinence, No Hematuria, No Retention, No Other Musculoskeletal: No other, No neck pain, No shoulder pain, No arm pain, No back pain, No hand pain, No leg pain, No foot pain Skin: No Rash, No Lesions, No Jaundice, No Bruising, No Other Objective Vitals Vital Signs Date Time Temp Pulse Resp B/P (MAP) Pulse Ox O2 Delivery O2 Flow Rate FiO2 10/22/25 12:58 98.2 69 17 135/79 (97) 99 98.2 10/22/25 08:00 Room Air* 0 21 Intake/Output Intake and Output 10/22/25 07:00 Intake Total 200 ml Output Total 865 ml Balance -665 ml Intake Oral 0 ml IV Total 200 ml Output Urine Total 375 ml Stool Total 340 ml Gastric Drainage Total 150 ml General Appearance: Alert, Oriented X3, Cooperative Lungs: Clear to auscultation, Normal air movement Cardiovascular: Regular rate, Normal S1, Normal S2, No murmurs Abdomen: Normal bowel sounds, Other (Distended) Extremities: No edema Medications Current Medications Medications Dose Ordered Sig/Aayush Route Start Time Stop Time Status Last Admin Dose Admin Diagnostic Test (Pha) 1 strip Q6HR 10/18/25 00:00 10/22/25 12:00 1 STRIP Insulin Human Regular Q6HR SC 10/18/25 00:00 10/20/25 06:58 3 UNITS Dextrose 50 ml UD PRN IV 10/17/25 19:45 Acetaminophen/ Hydrocodone Bitart 1 tab Q4HP PRN PO 10/17/25 19:45 Hold 10/19/25 10:56 1 TAB Ondansetron HCl 4 mg Q4HP PRN IV 10/17/25 19:45 10/19/25 00:47 4 MG Nitroglycerin 0.4 mg Q5MINP PRN SL 10/17/25 19:45 Morphine Sulfate 2 mg Q30M PRN IV 10/17/25 19:45 Hydralazine HCl 10 mg Q6HP PRN IV 10/17/25 19:45 Alprazolam 0.25 mg Q8HP PRN PO 10/18/25 17:15 Ketorolac Tromethamine 15 mg Q8HR IV 10/19/25 22:00 10/24/25 21:59 10/22/25 06:10 15 MG Morphine Sulfate 2 mg Q4HPRN PRN IV 10/19/25 16:45 10/20/25 23:24 2 MG Morphine Sulfate 4 mg Q4HPRN PRN IV 10/19/25 16:45 Hydromorphone HCl 0.5 mg Q4HPRN PRN IV 10/19/25 16:45 Acetaminophen 650 mg Q6HR NG 10/20/25 00:00 10/22/25 00:48 650 MG Metronidazole 100 ml @ 100 mls/hr Q8HR IV 10/19/25 22:00 10/22/25 06:10 100 MLS/HR Sodium Chloride 1,000 ml @ 125 mls/hr Q8H IV 10/20/25 09:30 10/22/25 09:30 125 MLS/HR Levofloxacin/ Dextrose 150 ml @ 100 mls/hr DAILY IV 10/21/25 10:46 10/22/25 09:34 100 MLS/HR Pantoprazole Sodium 40 mg DAILY IV 10/22/25 10:00 10/22/25 09:34 40 MG Laboratory Results Laboratory Tests 10/22/25 05:26 Chemistry Test 10/22/25 05:26 Albumin 2.6 g/dL (3.2-4.8) L Calcium Level 7.7 mg/dL (8.7-10.4) L Magnesium Level 2.0 mg/dL (1.6-2.6) Phosphorus Level 2.1 mg/dL (2.4-5.1) L Total Protein 4.6 g/dL (5.7-8.2) L LFT Test 10/22/25 05:26 Alanine Aminotransferase (ALT) 21 U/L (7-40) Alkaline Phosphatase 56 U/L (46-116) Aspartate Amino Transferase (AST) 37 U/L (13-40) Total Bilirubin 0.3 mg/dL (0.2-1.0) Urinalysis Test 10/17/25 18:23 Urine Color Light-yellow (Yellow) Urine Clarity Clear (Clear) Urine pH 5.5 (5.0-9.0) Urine Specific [place] > 1.050 (1.001-1.035) Urine Protein Negative (Negative) Urine Ketones Trace (Negative) Urine Blood 1+ /uL (Negative) H Urine Nitrite Negative (Negative) Urine Bilirubin Negative (Negative) Urine Urobilinogen Normal mg/dL (Negative) Urine Leukocyte Esterase Negative /uL (Negative) Urine RBC 3 /hpf (0 - 4) Urine Microscopic WBC 4 /HPF (0-5) Urine Squamous Epithelial Cells Few /hpf (<5) Urine Bacteria None seen /hpf (None Seen) Urine Yeast (Budding) Occasional /hpf (None Urine Glucose Normal mg/dL (Normal) Assessment/Plan Assessment/Plan Large bowel obstruction, colonic obstruction with transition point at the sigmoid colon Morbid obesity GERD Type 2 diabetes Hypertension Constipation Plan NPO GI consult for possible colonoscopy Surgical consult IV fluids Mineral oil Fleet enemas Monitor closely Full code Advance directives discussed for 18 minutes 10/19/2025: Bowel obstruction Constipation GI consult pending NPO Surgery is on the case IV fluids IV Flagyl Fleet enemas per surgery Looks like she might need a colonoscopy Monitor closely 10/20/2025: LORIE: Continue IV fluids, give another bolus of 500 mL of normal saline IV antibiotics Flagyl Add Levaquin NPO NG tube suction Surgery is following Monitor closely 10/21/2025: Continue IV fluids Give 1 more bolus of 500 mL NS NPO NG tube suction Monitor closely 10/22/2025: Clear liquid diet IV fluids IV antibiotics Monitor closely Plan discussed with: Patient Date of Service: Oct 22, 2025 Billing Provider: SIENA BRUCE MD Common Visit Codes: [id number] INP/OBS CARE(HIGH) SIENA BRUCE MD Oct 22, 2025 13:22
--- NOTE | 2025-10-22 14:23 | DVHPN2 ---
Progress Note Date Seen: Oct 22, 2025 Resident Creating Document: FINESSE GAINES RESIDENT Medical Necessity Reason Pt with a Central, PICC or Fol: Yes Subjective Review of Systems 70-year-old female presented to the ER with a complaint of abdominal pain, bloating and constipation patient reports that her last bowel movement was 1 week back, reports that she has has been passing gas on and off. Reports crampy abdominal pain along with nausea. Reports generalized 40, and weakness. Denies any personal history of cancer. Last colonoscopy 5 years back. Past medical/surgical history: GERD, hypertension, constipation, diverticulosis on colonoscopy Social history: Denies smoking/drinking/drug use Family history notable for breast cancer in sister and cousin GI consultation was ordered by Dr. He for colonoscopy but the patient is currently undergoing ex lap. Patient seen and examined at bedside. Reports abdominal pain on ambulation. NG to LIS draining biliary colored secretion. Abdominal binder in place. Dressing and suture clean dry and intact. Not passing gas. 10/21-patient seen and examined, NG to LIS, on ice chips, bowel sounds normoactive. Colostomy output brownish 10/22 - on cl liq diet, no well, abd tender but soft Objective vital signs Vital Sign Date Time Temp Pulse Resp B/P (MAP) Pulse Ox O2 Delivery O2 Flow Rate FiO2 10/22/25 12:58 98.2 69 17 135/79 (97) 99 98.2 10/22/25 08:00 Room Air* 0 21 Total Intake and Output 10/21/25 10/21/25 10/22/25 15:00 23:00 07:00 Intake Total 100 ml 100 ml Output Total 490 ml 375 ml Balance -390 ml -275 ml medications Current Medications Medications Dose Ordered Sig/Aayush Route Start Time Stop Time Status Last Admin Dose Admin Diagnostic Test (Pha) 1 strip Q6HR 10/18/25 00:00 10/22/25 12:00 1 STRIP Insulin Human Regular Q6HR SC 10/18/25 00:00 10/20/25 06:58 3 UNITS Dextrose 50 ml UD PRN IV 10/17/25 19:45 Acetaminophen/ Hydrocodone Bitart 1 tab Q4HP PRN PO 10/17/25 19:45 Hold 10/19/25 10:56 1 TAB Ondansetron HCl 4 mg Q4HP PRN IV 10/17/25 19:45 10/19/25 00:47 4 MG Nitroglycerin 0.4 mg Q5MINP PRN SL 10/17/25 19:45 Morphine Sulfate 2 mg Q30M PRN IV 10/17/25 19:45 Hydralazine HCl 10 mg Q6HP PRN IV 10/17/25 19:45 Alprazolam 0.25 mg Q8HP PRN PO 10/18/25 17:15 Ketorolac Tromethamine 15 mg Q8HR IV 10/19/25 22:00 10/24/25 21:59 10/22/25 14:12 15 MG Morphine Sulfate 2 mg Q4HPRN PRN IV 10/19/25 16:45 10/20/25 23:24 2 MG Morphine Sulfate 4 mg Q4HPRN PRN IV 10/19/25 16:45 Hydromorphone HCl 0.5 mg Q4HPRN PRN IV 10/19/25 16:45 Acetaminophen 650 mg Q6HR NG 10/20/25 00:00 10/22/25 00:48 650 MG Metronidazole 100 ml @ 100 mls/hr Q8HR IV 10/19/25 22:00 10/22/25 14:13 100 MLS/HR Sodium Chloride 1,000 ml @ 125 mls/hr Q8H IV 10/20/25 09:30 10/22/25 09:30 125 MLS/HR Levofloxacin/ Dextrose 150 ml @ 100 mls/hr DAILY IV 10/21/25 10:46 10/22/25 09:34 100 MLS/HR Pantoprazole Sodium 40 mg DAILY IV 10/22/25 10:00 10/22/25 09:34 40 MG Examination Obese female lying in the bed comfortably, well conversational, no acute distress General: Obese, afebrile, palor, mucosae are moist Cardiovascular: Regular S1 and S2. No murmurs, gallops or rubs. No JVD elevation. No pedal edema Respiratory: Normal B/L air entry on room air. Clear lung sounds on auscultation Abdomen: Soft, nontender, nondistended, normoactive, bowel sounds, no rebound tenderness, no organomegaly, no masses. Sutures clean dry intact. Abdominal binder seen. Genitourinary: Deferred MSK/skin: Mobilizes 4 limbs. Skin is dry and warm Neurological: No motor, no sensitive deficits, normal speech. Pupils are isocoric and reactive. Psych/Mental Status: A/Ox3 laboratory and microbiology Laboratory Tests 10/22/25 05:26 Test 10/22/25 05:26 Range/Units Serum Glucose 89 74-106 mg/dL Labs and/or images reviewed: Labs reviewed by me, Image(s) reviewed by me Problem List/Assessment/Plan Problem List/Assessment/Plan Large bowel obstruction secondary to stricture/infectious/neoplastic process status post partial sigmoid resection and end colostomy 10/19 Probably sepsis secondary to above Lactic acidosis Bilateral hepatic lobe cyst Likely 1.6 cm left adrenal adenoma Right inguinal hernia Uncontrolled hypertension History of 3 cm sliding-type hiatal hernia Mild gastritis CT abdomen with IV contrast shows Colonic obstruction with transition point at the sigmoid colon. There is thickening of the sigmoid colonic tissue where infectious/neoplastic process may be considered. Plan: Recommendation: Dr. Gupta Underwent ex lap 10/19. We will await operative findings. Follow up with path report. Diet cl liq, ng still in place Continue IV fluids, monitor blood pressure closely. Recommend PT eval Protonix 40 mg IV daily Tumor markers negative Patient underwent upper EGD December 2021 which 3 cm sliding-type hiatal hernia, mild antral gastritis and superficial ulceration in the midbody of the stomach Recommend IV antibiotics, IV fluids Rest of management per primary team Case discussed with Dr. Gupta Plan discussed with: Patient My Orders My Orders Orders - FINESSE GAINES Procedure Category Date Status Time Pantoprazole PHA 10/22/25 In Process (Protonix) 10:00 Dietary Evaluation Review Comments: Nutrition Recommendation: 1) Advance to Soft diet as medically feasible 2) Consider TPN if NPO>7 days 3) Monitor NPO status, lab values, weight trend, and I/O Expected Outcomes/Goals: GI symptoms to improve Intake to meet >75% estimated needs FU 2-3 days Fluid Accumulation (N/A): N/A Protein Calorie Malnutrition: N/A Is there a minimum of two crit: FINESSE Beal Oct 22, 2025 14:23
[2025-10-22 16:52] VITALS: BP 142/80; PULSE 76; RESP 17; TEMP 98.5; O2SAT 99
[2025-10-22 20:00] VITALS: PULSE 76; PULSE 77; RESP 18; O2SAT 99
[2025-10-22 21:00] VITALS: BP 147/78; PULSE 76; RESP 18; TEMP 98; O2SAT 99
[2025-10-23] VITALS (7 sets, daily range): BP systolic 133–157; BP diastolic 72–94; PULSE 66–79; RESP 16–18; TEMP 97.7–98.4; O2SAT 94–100
[2025-10-23 06:31] LABS: Hematocrit 26.8 % (36.0-46.0); Hemoglobin 9.3 g/dL (12.2-16.2); Mean Corpuscular Hemoglobin 32.0 pg (28.0-32.0); Mean Corpuscular Volume 92.7 fL (80.0-100.0); Nucleated Red Blood Cells % 0.1 %
[2025-10-23 06:50] LABS: Anion Gap 11 (5-15); Carbon Dioxide 24 mmol/L (20-31); Potassium 3.7 mmol/L (3.5-5.1); Sodium 144 mmol/L (136-145)
[2025-10-23 06:53] LABS: Calcium 8.6 mg/dL (8.7-10.4); Chloride 109 mmol/L (98-107)
[2025-10-23 06:56] LABS: BUN/Creatinine Ratio 26.4 (10.0-20.0); Blood Urea Nitrogen 19 mg/dL (9-23); Glucose 98 mg/dL (74-106); Magnesium 1.9 mg/dL (1.6-2.6)
--- NOTE | 2025-10-23 12:02 | DVHPN2 ---
Progress Note - Dictate Date Seen: Oct 23, 2025 Medical Necessity Reason Pt with a Central, PICC or Fol: Yes Subjective Covering for Dr. He. E: no major events o/n. no clear liquid diet. vital signs Vital Sign Date Time Temp Pulse Resp B/P (MAP) Pulse Ox O2 Delivery O2 Flow Rate FiO2 10/23/25 08:44 97.9 73 18 144/73 (96) 99 97.9 10/23/25 08:00 Nasal Cannula* 2 28 Total Intake and Output 10/22/25 10/22/25 10/23/25 15:00 23:00 07:00 Intake Total 700 ml 1500 ml Output Total 600 ml 600 ml Balance 100 ml 900 ml medications Current Medications Medications Dose Ordered Sig/Aayush Route Start Time Stop Time Status Last Admin Dose Admin Diagnostic Test (Pha) 1 strip Q6HR 10/18/25 00:00 10/23/25 05:58 1 STRIP Insulin Human Regular Q6HR SC 10/18/25 00:00 10/20/25 06:58 3 UNITS Dextrose 50 ml UD PRN IV 10/17/25 19:45 Acetaminophen/ Hydrocodone Bitart 1 tab Q4HP PRN PO 10/17/25 19:45 Hold 10/19/25 10:56 1 TAB Ondansetron HCl 4 mg Q4HP PRN IV 10/17/25 19:45 10/19/25 00:47 4 MG Nitroglycerin 0.4 mg Q5MINP PRN SL 10/17/25 19:45 Morphine Sulfate 2 mg Q30M PRN IV 10/17/25 19:45 Hydralazine HCl 10 mg Q6HP PRN IV 10/17/25 19:45 Alprazolam 0.25 mg Q8HP PRN PO 10/18/25 17:15 Ketorolac Tromethamine 15 mg Q8HR IV 10/19/25 22:00 10/24/25 21:59 10/23/25 05:59 15 MG Morphine Sulfate 2 mg Q4HPRN PRN IV 10/19/25 16:45 10/22/25 23:05 2 MG Morphine Sulfate 4 mg Q4HPRN PRN IV 10/19/25 16:45 Hydromorphone HCl 0.5 mg Q4HPRN PRN IV 10/19/25 16:45 Acetaminophen 650 mg Q6HR NG 10/20/25 00:00 10/22/25 00:48 650 MG Metronidazole 100 ml @ 100 mls/hr Q8HR IV 10/19/25 22:00 10/23/25 05:58 100 MLS/HR Sodium Chloride 1,000 ml @ 125 mls/hr Q8H IV 10/20/25 09:30 10/23/25 01:00 125 MLS/HR Levofloxacin/ Dextrose 150 ml @ 100 mls/hr DAILY IV 10/21/25 10:46 10/23/25 09:14 100 MLS/HR Pantoprazole Sodium 40 mg DAILY IV 10/22/25 10:00 10/23/25 09:14 40 MG objective GEN: NAD ABD: incision clean and dry. colostomy viable and functioning. laboratory and microbiology Laboratory Tests 10/23/25 05:35 Test 10/23/25 05:35 Range/Units Serum Glucose 98 74-106 mg/dL Assessment/Plan A: 1. POD #4 improving P: 1. DC NGT 2. full liquid diet. Dietary Evaluation Review Comments: Nutrition Recommendation: 1) Advance to Soft diet as medically feasible 2) Consider TPN if NPO>7 days 3) Monitor NPO status, lab values, weight trend, and I/O Expected Outcomes/Goals: GI symptoms to improve Intake to meet >75% estimated needs FU 2-3 days Fluid Accumulation (N/A): N/A Protein Calorie Malnutrition: N/A Is there a minimum of two crit: No Plan discussed with: Patient JEANNETTE WHYTE MD Oct 23, 2025 12:02
--- NOTE | 2025-10-23 12:11 | DVHPN2 ---
Subjective Doing well Changes from previous H/P or p: Changes Eyes: No Pain, No Vision change, No Conjunctivae inflammation, No Eyelid inflammation, No Other, No Redness ENT: No Ear pain, No Ear discharge, No Nose pain, No Nose discharge, No Nose congestion, No Mouth pain, No Mouth swelling, No Throat pain, No Throat swelling, No Other Cardiovascular: No Chest Pain, No Palpitations, No Orthopnea, No Paroxysmal Noc. Dyspnea, No Edema, No Lt Headedness, No Other Respiratory: No Cough, No Dry, No Shortness of breath, No SOB with excertion, No Wheezing, No Hemoptysis, No Pleuritic Pain, No Sputum, No Other Gastrointestinal: Nausea; No Vomiting; Abdominal Pain; No Diarrhea; C onstipation; No Melena, No Hematochezia, No Other Genitourinary: No Dysuria, No Frequency, No Incontinence, No Hematuria, No Retention, No Other Musculoskeletal: No other, No neck pain, No shoulder pain, No arm pain, No back pain, No hand pain, No leg pain, No foot pain Skin: No Rash, No Lesions, No Jaundice, No Bruising, No Other Objective Vitals Vital Signs Date Time Temp Pulse Resp B/P (MAP) Pulse Ox O2 Delivery O2 Flow Rate FiO2 10/23/25 08:44 97.9 73 18 144/73 (96) 99 97.9 10/23/25 08:00 Nasal Cannula* 2 28 Intake/Output Intake and Output 10/23/25 07:00 Intake Total 2200 ml Output Total 1200 ml Balance 1000 ml Intake Oral 1000 ml IV Total 1200 ml Output Urine Total 1200 ml # Bowel Movements 1 General Appearance: Alert, Oriented X3, Cooperative Lungs: Clear to auscultation, Normal air movement Cardiovascular: Regular rate, Normal S1, Normal S2, No murmurs Abdomen: Normal bowel sounds, Other (Distended) Extremities: No edema Medications Current Medications Medications Dose Ordered Sig/Aayush Route Start Time Stop Time Status Last Admin Dose Admin Diagnostic Test (Pha) 1 strip Q6HR 10/18/25 00:00 10/23/25 12:07 1 STRIP Insulin Human Regular Q6HR SC 10/18/25 00:00 10/20/25 06:58 3 UNITS Dextrose 50 ml UD PRN IV 10/17/25 19:45 Acetaminophen/ Hydrocodone Bitart 1 tab Q4HP PRN PO 10/17/25 19:45 Hold 10/19/25 10:56 1 TAB Ondansetron HCl 4 mg Q4HP PRN IV 10/17/25 19:45 10/19/25 00:47 4 MG Nitroglycerin 0.4 mg Q5MINP PRN SL 10/17/25 19:45 Morphine Sulfate 2 mg Q30M PRN IV 10/17/25 19:45 Hydralazine HCl 10 mg Q6HP PRN IV 10/17/25 19:45 Alprazolam 0.25 mg Q8HP PRN PO 10/18/25 17:15 Ketorolac Tromethamine 15 mg Q8HR IV 10/19/25 22:00 10/24/25 21:59 10/23/25 05:59 15 MG Morphine Sulfate 2 mg Q4HPRN PRN IV 10/19/25 16:45 10/22/25 23:05 2 MG Morphine Sulfate 4 mg Q4HPRN PRN IV 10/19/25 16:45 Hydromorphone HCl 0.5 mg Q4HPRN PRN IV 10/19/25 16:45 Acetaminophen 650 mg Q6HR NG 10/20/25 00:00 10/22/25 00:48 650 MG Metronidazole 100 ml @ 100 mls/hr Q8HR IV 10/19/25 22:00 10/23/25 05:58 100 MLS/HR Sodium Chloride 1,000 ml @ 125 mls/hr Q8H IV 10/20/25 09:30 10/23/25 09:30 125 MLS/HR Levofloxacin/ Dextrose 150 ml @ 100 mls/hr DAILY IV 10/21/25 10:46 10/23/25 09:14 100 MLS/HR Pantoprazole Sodium 40 mg DAILY IV 10/22/25 10:00 10/23/25 09:14 40 MG Laboratory Results Laboratory Tests 10/23/25 05:35 Chemistry Test 10/23/25 05:35 Calcium Level 8.6 mg/dL (8.7-10.4) L Magnesium Level 1.9 mg/dL (1.6-2.6) Phosphorus Level 2.8 mg/dL (2.4-5.1) Urinalysis Test 10/17/25 18:23 Urine Color Light-yellow (Yellow) Urine Clarity Clear (Clear) Urine pH 5.5 (5.0-9.0) Urine Specific [place] > 1.050 (1.001-1.035) Urine Protein Negative (Negative) Urine Ketones Trace (Negative) Urine Blood 1+ /uL (Negative) H Urine Nitrite Negative (Negative) Urine Bilirubin Negative (Negative) Urine Urobilinogen Normal mg/dL (Negative) Urine Leukocyte Esterase Negative /uL (Negative) Urine RBC 3 /hpf (0 - 4) Urine Microscopic WBC 4 /HPF (0-5) Urine Squamous Epithelial Cells Few /hpf (<5) Urine Bacteria None seen /hpf (None Seen) Urine Yeast (Budding) Occasional /hpf (None Urine Glucose Normal mg/dL (Normal) Assessment/Plan Assessment/Plan Large bowel obstruction, colonic obstruction with transition point at the sigmoid colon Morbid obesity GERD Type 2 diabetes Hypertension Constipation Plan NPO GI consult for possible colonoscopy Surgical consult IV fluids Mineral oil Fleet enemas Monitor closely Full code Advance directives discussed for 18 minutes 10/19/2025: Bowel obstruction Constipation GI consult pending NPO Surgery is on the case IV fluids IV Flagyl Fleet enemas per surgery Looks like she might need a colonoscopy Monitor closely 10/20/2025: LORIE: Continue IV fluids, give another bolus of 500 mL of normal saline IV antibiotics Flagyl Add Levaquin NPO NG tube suction Surgery is following Monitor closely 10/21/2025: Continue IV fluids Give 1 more bolus of 500 mL NS NPO NG tube suction Monitor closely 10/22/2025: Clear liquid diet IV fluids IV antibiotics Monitor closely 10/23/25: Clear liquids IV fluids IV antibiotics Monitor Plan discussed with: Patient My Orders Orders - SIENA BRUCE MD Procedure Category Date Status Time Comprehensive LAB 10/24/25 Verified Metabolic Panel 04:00 Magnesium LAB 10/24/25 Verified 04:00 Date of Service: Oct 23, 2025 Billing Provider: SIENA BRUCE MD Common Visit Codes: [id number] INP/OBS CARE(HIGH) SIENA BRUCE MD Oct 23, 2025 12:11
--- NOTE | 2025-10-23 14:35 | DVHPN2 ---
Progress Note Date Seen: Oct 23, 2025 Resident Creating Document: FINESSE GAINES RESIDENT Medical Necessity Reason Pt with a Central, PICC or Fol: Yes Subjective Review of Systems 70-year-old female presented to the ER with a complaint of abdominal pain, bloating and constipation patient reports that her last bowel movement was 1 week back, reports that she has has been passing gas on and off. Reports crampy abdominal pain along with nausea. Reports generalized 40, and weakness. Denies any personal history of cancer. Last colonoscopy 5 years back. Past medical/surgical history: GERD, hypertension, constipation, diverticulosis on colonoscopy Social history: Denies smoking/drinking/drug use Family history notable for breast cancer in sister and cousin GI consultation was ordered by Dr. He for colonoscopy but the patient is currently undergoing ex lap. Patient seen and examined at bedside. Reports abdominal pain on ambulation. NG to LIS draining biliary colored secretion. Abdominal binder in place. Dressing and suture clean dry and intact. Not passing gas. 10/21-patient seen and examined, NG to LIS, on ice chips, bowel sounds normoactive. Colostomy output brownish 10/22 - on cl liq diet, no well, abd tender but soft 10/23 on full liquids, tolerated well, colostomy with dark brown stool Objective vital signs Vital Sign Date Time Temp Pulse Resp B/P (MAP) Pulse Ox O2 Delivery O2 Flow Rate FiO2 10/23/25 13:18 98.4 70 16 149/82 (104) 100 98.4 10/23/25 08:00 Nasal Cannula* 2 28 Total Intake and Output 10/22/25 10/22/25 10/23/25 14:59 22:59 06:59 Intake Total 700 ml 1500 ml Output Total 600 ml 600 ml Balance 100 ml 900 ml medications Current Medications Medications Dose Ordered Sig/Aayush Route Start Time Stop Time Status Last Admin Dose Admin Diagnostic Test (Pha) 1 strip Q6HR 10/18/25 00:00 10/23/25 12:07 1 STRIP Insulin Human Regular Q6HR SC 10/18/25 00:00 10/20/25 06:58 3 UNITS Dextrose 50 ml UD PRN IV 10/17/25 19:45 Acetaminophen/ Hydrocodone Bitart 1 tab Q4HP PRN PO 10/17/25 19:45 Hold 10/19/25 10:56 1 TAB Ondansetron HCl 4 mg Q4HP PRN IV 10/17/25 19:45 10/19/25 00:47 4 MG Nitroglycerin 0.4 mg Q5MINP PRN SL 10/17/25 19:45 Morphine Sulfate 2 mg Q30M PRN IV 10/17/25 19:45 Hydralazine HCl 10 mg Q6HP PRN IV 10/17/25 19:45 Alprazolam 0.25 mg Q8HP PRN PO 10/18/25 17:15 Ketorolac Tromethamine 15 mg Q8HR IV 10/19/25 22:00 10/24/25 21:59 10/23/25 14:19 15 MG Morphine Sulfate 2 mg Q4HPRN PRN IV 10/19/25 16:45 10/22/25 23:05 2 MG Morphine Sulfate 4 mg Q4HPRN PRN IV 10/19/25 16:45 Hydromorphone HCl 0.5 mg Q4HPRN PRN IV 10/19/25 16:45 Acetaminophen 650 mg Q6HR NG 10/20/25 00:00 10/22/25 00:48 650 MG Metronidazole 100 ml @ 100 mls/hr Q8HR IV 10/19/25 22:00 10/23/25 14:18 100 MLS/HR Sodium Chloride 1,000 ml @ 125 mls/hr Q8H IV 10/20/25 09:30 10/23/25 09:30 125 MLS/HR Levofloxacin/ Dextrose 150 ml @ 100 mls/hr DAILY IV 10/21/25 10:46 10/23/25 09:14 100 MLS/HR Pantoprazole Sodium 40 mg DAILY IV 10/22/25 10:00 10/23/25 09:14 40 MG Examination Obese female lying in the bed comfortably, well conversational, no acute distress General: Obese, afebrile, palor, mucosae are moist Cardiovascular: Regular S1 and S2. No murmurs, gallops or rubs. No JVD elevation. No pedal edema Respiratory: Normal B/L air entry on room air. Clear lung sounds on auscultation Abdomen: Soft, nontender, nondistended, normoactive, bowel sounds, no rebound tenderness, no organomegaly, no masses. Sutures clean dry intact. Abdominal binder seen. Genitourinary: Deferred MSK/skin: Mobilizes 4 limbs. Skin is dry and warm Neurological: No motor, no sensitive deficits, normal speech. Pupils are isocoric and reactive. Psych/Mental Status: A/Ox3 laboratory and microbiology Laboratory Tests 10/23/25 05:35 Test 10/23/25 05:35 Range/Units Serum Glucose 98 74-106 mg/dL Labs and/or images reviewed: Labs reviewed by me, Image(s) reviewed by me Problem List/Assessment/Plan Problem List/Assessment/Plan Large bowel obstruction secondary to stricture/infectious/neoplastic process status post partial sigmoid resection and end colostomy 10/19 Probably sepsis secondary to above Lactic acidosis Bilateral hepatic lobe cyst Likely 1.6 cm left adrenal adenoma Right inguinal hernia Uncontrolled hypertension History of 3 cm sliding-type hiatal hernia Mild gastritis CT abdomen with IV contrast shows Colonic obstruction with transition point at the sigmoid colon. There is thickening of the sigmoid colonic tissue where infectious/neoplastic process may be considered. Plan: Recommendation: Dr. Gupta Underwent ex lap 10/19. We will await operative findings. Follow up with path report. Full liquid diet, NG discontinued Continue IV fluids, monitor blood pressure closely. Recommend PT eval Protonix 40 mg IV daily Tumor markers negative Patient underwent upper EGD December 2021 which 3 cm sliding-type hiatal hernia, mild antral gastritis and superficial ulceration in the midbody of the stomach Recommend IV antibiotics, IV fluids Rest of management per primary team Case discussed with Dr. Gupta Plan discussed with: Patient, Spouse (At bedside) Dietary Evaluation Review Comments: Nutrition Recommendation: 1) Advance to Soft diet as medically feasible 2) Consider TPN if NPO>7 days 3) Monitor NPO status, lab values, weight trend, and I/O Expected Outcomes/Goals: GI symptoms to improve Intake to meet >75% estimated needs FU 2-3 days Fluid Accumulation (N/A): N/A Protein Calorie Malnutrition: N/A Is there a minimum of two crit: FINESSE Beal RESIDENT Oct 23, 2025 14:35
[2025-10-24] VITALS (9 sets, daily range): BP systolic 126–155; BP diastolic 66–98; PULSE 67–74; RESP 16–19; TEMP 96–98.4; O2SAT 97–100
[2025-10-24 07:31] LABS: Alanine Aminotransferase 18 U/L (7-40); Alkaline Phosphatase 55 U/L (46-116); BUN/Creatinine Ratio 24.6 (10.0-20.0); Blood Urea Nitrogen 15 mg/dL (9-23); Carbon Dioxide 24 mmol/L (20-31); Magnesium 1.9 mg/dL (1.6-2.6)
[2025-10-24 07:38] LABS: Albumin 3.0 g/dL (3.2-4.8); Bilirubin, Total 0.3 mg/dL (0.2-1.0); Calcium 8.1 mg/dL (8.7-10.4); Glucose 109 mg/dL (74-106); Total Protein 5.3 g/dL (5.7-8.2)
[2025-10-24 07:45] LABS: Anion Gap 9 (5-15); Potassium 3.7 mmol/L (3.5-5.1); Sodium 143 mmol/L (136-145)
[2025-10-24 07:46] LABS: Chloride 110 mmol/L (98-107)
--- NOTE | 2025-10-24 12:30 | DVHPN2 ---
Subjective Doing well Tolerating full liquids Changes from previous H/P or p: Changes Eyes: No Pain, No Vision change, No Conjunctivae inflammation, No Eyelid inflammation, No Other, No Redness ENT: No Ear pain, No Ear discharge, No Nose pain, No Nose discharge, No Nose congestion, No Mouth pain, No Mouth swelling, No Throat pain, No Throat swelling, No Other Cardiovascular: No Chest Pain, No Palpitations, No Orthopnea, No Paroxysmal Noc. Dyspnea, No Edema, No Lt Headedness, No Other Respiratory: No Cough, No Dry, No Shortness of breath, No SOB with excertion, No Wheezing, No Hemoptysis, No Pleuritic Pain, No Sputum, No Other Gastrointestinal: Nausea; No Vomiting; Abdominal Pain; No Diarrhea; C onstipation; No Melena, No Hematochezia, No Other Genitourinary: No Dysuria, No Frequency, No Incontinence, No Hematuria, No Retention, No Other Musculoskeletal: No other, No neck pain, No shoulder pain, No arm pain, No back pain, No hand pain, No leg pain, No foot pain Skin: No Rash, No Lesions, No Jaundice, No Bruising, No Other Objective Vitals Vital Signs Date Time Temp Pulse Resp B/P (MAP) Pulse Ox O2 Delivery O2 Flow Rate FiO2 10/24/25 09:00 96.2 69 16 142/69 (93) 100 96.2 10/23/25 20:00 Nasal Cannula* 2 28 Intake/Output Intake and Output 10/24/25 07:00 Intake Total 3700 ml Output Total 1500 ml Balance 2200 ml Intake Oral 1350 ml IV Total 2350 ml Output Urine Total 1050 ml Gastric Drainage Total 450 ml General Appearance: Alert, Oriented X3, Cooperative Lungs: Clear to auscultation, Normal air movement Cardiovascular: Regular rate, Normal S1, Normal S2, No murmurs Abdomen: Normal bowel sounds, Other (Distended) Extremities: No edema Medications Current Medications Medications Dose Ordered Sig/Aayush Route Start Time Stop Time Status Last Admin Dose Admin Diagnostic Test (Pha) 1 strip Q6HR 10/18/25 00:00 10/24/25 11:49 1 STRIP Insulin Human Regular Q6HR SC 10/18/25 00:00 10/24/25 11:50 3 UNITS Dextrose 50 ml UD PRN IV 10/17/25 19:45 Acetaminophen/ Hydrocodone Bitart 1 tab Q4HP PRN PO 10/17/25 19:45 Hold 10/19/25 10:56 1 TAB Ondansetron HCl 4 mg Q4HP PRN IV 10/17/25 19:45 10/19/25 00:47 4 MG Nitroglycerin 0.4 mg Q5MINP PRN SL 10/17/25 19:45 Morphine Sulfate 2 mg Q30M PRN IV 10/17/25 19:45 Hydralazine HCl 10 mg Q6HP PRN IV 10/17/25 19:45 Alprazolam 0.25 mg Q8HP PRN PO 10/18/25 17:15 Ketorolac Tromethamine 15 mg Q8HR IV 10/19/25 22:00 10/24/25 21:59 10/24/25 06:48 15 MG Morphine Sulfate 2 mg Q4HPRN PRN IV 10/19/25 16:45 10/22/25 23:05 2 MG Morphine Sulfate 4 mg Q4HPRN PRN IV 10/19/25 16:45 Hydromorphone HCl 0.5 mg Q4HPRN PRN IV 10/19/25 16:45 Acetaminophen 650 mg Q6HR NG 10/20/25 00:00 10/24/25 11:51 650 MG Metronidazole 100 ml @ 100 mls/hr Q8HR IV 10/19/25 22:00 10/24/25 06:32 100 MLS/HR Sodium Chloride 1,000 ml @ 125 mls/hr Q8H IV 10/20/25 09:30 10/24/25 05:34 125 MLS/HR Levofloxacin/ Dextrose 150 ml @ 100 mls/hr DAILY IV 10/21/25 10:46 10/24/25 10:11 100 MLS/HR Pantoprazole Sodium 40 mg DAILY IV 10/22/25 10:00 10/24/25 10:11 40 MG Laboratory Results Laboratory Tests 10/23/25 05:35 10/24/25 05:49 Chemistry Test 10/24/25 05:49 Albumin 3.0 g/dL (3.2-4.8) L Calcium Level 8.1 mg/dL (8.7-10.4) L Magnesium Level 1.9 mg/dL (1.6-2.6) Total Protein 5.3 g/dL (5.7-8.2) L LFT Test 10/24/25 05:49 Alanine Aminotransferase (ALT) 18 U/L (7-40) Alkaline Phosphatase 55 U/L (46-116) Aspartate Amino Transferase (AST) 22 U/L (13-40) Total Bilirubin 0.3 mg/dL (0.2-1.0) Urinalysis Test 10/17/25 18:23 Urine Color Light-yellow (Yellow) Urine Clarity Clear (Clear) Urine pH 5.5 (5.0-9.0) Urine Specific [place] > 1.050 (1.001-1.035) Urine Protein Negative (Negative) Urine Ketones Trace (Negative) Urine Blood 1+ /uL (Negative) H Urine Nitrite Negative (Negative) Urine Bilirubin Negative (Negative) Urine Urobilinogen Normal mg/dL (Negative) Urine Leukocyte Esterase Negative /uL (Negative) Urine RBC 3 /hpf (0 - 4) Urine Microscopic WBC 4 /HPF (0-5) Urine Squamous Epithelial Cells Few /hpf (<5) Urine Bacteria None seen /hpf (None Seen) Urine Yeast (Budding) Occasional /hpf (None Urine Glucose Normal mg/dL (Normal) Assessment/Plan Assessment/Plan Large bowel obstruction, colonic obstruction with transition point at the sigmoid colon Morbid obesity GERD Type 2 diabetes Hypertension Constipation Plan NPO GI consult for possible colonoscopy Surgical consult IV fluids Mineral oil Fleet enemas Monitor closely Full code Advance directives discussed for 18 minutes 10/19/2025: Bowel obstruction Constipation GI consult pending NPO Surgery is on the case IV fluids IV Flagyl Fleet enemas per surgery Looks like she might need a colonoscopy Monitor closely 10/20/2025: LORIE: Continue IV fluids, give another bolus of 500 mL of normal saline IV antibiotics Flagyl Add Levaquin NPO NG tube suction Surgery is following Monitor closely 10/21/2025: Continue IV fluids Give 1 more bolus of 500 mL NS NPO NG tube suction Monitor closely 10/22/2025: Clear liquid diet IV fluids IV antibiotics Monitor closely 10/23/25: Clear liquids IV fluids IV antibiotics Monitor 10/24/2025: Full liquid diet Physical therapy Out of bed as tolerated IV fluids IV antibiotics Levaquin and Flagyl Monitor closely Plan discussed with: Patient Date of Service: Oct 24, 2025 Billing Provider: SIENA BRUCE MD Common Visit Codes: [id number] INP/OBS CARE(HIGH) SIENA BRUCE MD Oct 24, 2025 12:30
[2025-10-25] VITALS (14 sets, daily range): BP systolic 135–160; BP diastolic 75–102; PULSE 64–140; RESP 15–19; TEMP 96.4–98.3; O2SAT 98–100
[2025-10-25 06:29] LABS: Hematocrit 27.0 % (36.0-46.0); Hemoglobin 9.2 g/dL (12.2-16.2); Mean Corpuscular Hemoglobin 31.0 pg (28.0-32.0); Mean Corpuscular Volume 91.1 fL (80.0-100.0); Nucleated Red Blood Cells % 0.1 %
[2025-10-25 06:55] LABS: Anion Gap 8 (5-15); Carbon Dioxide 25 mmol/L (20-31); Potassium 3.6 mmol/L (3.5-5.1); Sodium 141 mmol/L (136-145)
[2025-10-25 07:01] LABS: BUN/Creatinine Ratio 15.6 (10.0-20.0); Blood Urea Nitrogen 10 mg/dL (9-23); Glucose 83 mg/dL (74-106)
[2025-10-25 07:02] LABS: Calcium 8.2 mg/dL (8.7-10.4); Chloride 108 mmol/L (98-107); Magnesium 1.7 mg/dL (1.6-2.6)
[2025-10-25] MEDS: LOSARTAN POTASSIUM 25 MG TAB PO ONE (11:56)
[2025-10-25] MEDS: AMIODARONE BOLUS KIT 100 ML IV ONE (11:56)
--- NOTE | 2025-10-25 11:56 | DVHPN2 ---
Subjective The patient just went into atrial fibrillation with rapid ventricular response with a heart rate around 140 Changes from previous H/P or p: Changes Eyes: No Pain, No Vision change, No Conjunctivae inflammation, No Eyelid inflammation, No Other, No Redness ENT: No Ear pain, No Ear discharge, No Nose pain, No Nose discharge, No Nose congestion, No Mouth pain, No Mouth swelling, No Throat pain, No Throat swelling, No Other Cardiovascular: No Chest Pain, No Palpitations, No Orthopnea, No Paroxysmal Noc. Dyspnea, No Edema, No Lt Headedness, No Other Respiratory: No Cough, No Dry, No Shortness of breath, No SOB with excertion, No Wheezing, No Hemoptysis, No Pleuritic Pain, No Sputum, No Other Gastrointestinal: Nausea; No Vomiting; Abdominal Pain; No Diarrhea; C onstipation; No Melena, No Hematochezia, No Other Genitourinary: No Dysuria, No Frequency, No Incontinence, No Hematuria, No Retention, No Other Musculoskeletal: No other, No neck pain, No shoulder pain, No arm pain, No back pain, No hand pain, No leg pain, No foot pain Skin: No Rash, No Lesions, No Jaundice, No Bruising, No Other Objective Vitals Vital Signs Date Time Temp Pulse Resp B/P (MAP) Pulse Ox O2 Delivery O2 Flow Rate FiO2 10/25/25 09:00 96.7 70 18 155/89 (111) 100 96.7 10/25/25 08:15 Nasal Cannula* 2 28 Intake/Output Intake and Output 10/25/25 07:00 Intake Total 1400 ml Output Total 1400 ml Balance 0 ml Intake Oral 1050 ml IV Total 350 ml Output Urine Total 1400 ml # Bowel Movements 2 General Appearance: Alert, Oriented X3, Cooperative Lungs: Clear to auscultation, Normal air movement Cardiovascular: Regular rate, Normal S1, Normal S2, No murmurs Abdomen: Normal bowel sounds, Other (Distended) Extremities: No edema Medications Current Medications Medications Dose Ordered Sig/Aayush Route Start Time Stop Time Status Last Admin Dose Admin Diagnostic Test (Pha) 1 strip Q6HR 10/18/25 00:00 10/25/25 05:01 1 STRIP Insulin Human Regular Q6HR SC 10/18/25 00:00 10/25/25 01:08 3 UNITS Dextrose 50 ml UD PRN IV 10/17/25 19:45 Acetaminophen/ Hydrocodone Bitart 1 tab Q4HP PRN PO 10/17/25 19:45 Hold 10/19/25 10:56 1 TAB Ondansetron HCl 4 mg Q4HP PRN IV 10/17/25 19:45 10/19/25 00:47 4 MG Nitroglycerin 0.4 mg Q5MINP PRN SL 10/17/25 19:45 Morphine Sulfate 2 mg Q30M PRN IV 10/17/25 19:45 Hydralazine HCl 10 mg Q6HP PRN IV 10/17/25 19:45 Alprazolam 0.25 mg Q8HP PRN PO 10/18/25 17:15 Morphine Sulfate 2 mg Q4HPRN PRN IV 10/19/25 16:45 10/22/25 23:05 2 MG Morphine Sulfate 4 mg Q4HPRN PRN IV 10/19/25 16:45 Hydromorphone HCl 0.5 mg Q4HPRN PRN IV 10/19/25 16:45 Acetaminophen 650 mg Q6HR NG 10/20/25 00:00 10/25/25 05:01 650 MG Metronidazole 100 ml @ 100 mls/hr Q8HR IV 10/19/25 22:00 10/25/25 05:00 100 MLS/HR Levofloxacin/ Dextrose 150 ml @ 100 mls/hr DAILY IV 10/21/25 10:46 10/25/25 09:38 100 MLS/HR Pantoprazole Sodium 40 mg DAILY IV 10/22/25 10:00 10/25/25 09:38 40 MG Magnesium Sulfate/ Dextrose 100 ml @ 100 mls/hr Q1HR IV 10/25/25 11:00 10/25/25 12:59 Amiodarone HCl 250 ml @ 16.66 mls/ hr Q15H1M IV 10/25/25 17:00 Losartan Potassium 25 mg DAILY PO 10/26/25 10:00 Metoprolol Tartrate 12.5 mg BID PO 10/25/25 22:00 Enoxaparin Sodium 100 mg Q12HR SC 10/25/25 22:00 Laboratory Results Laboratory Tests 10/25/25 05:10 Chemistry Test 10/25/25 05:10 Calcium Level 8.2 mg/dL (8.7-10.4) L Magnesium Level 1.7 mg/dL (1.6-2.6) Urinalysis Test 10/17/25 18:23 Urine Color Light-yellow (Yellow) Urine Clarity Clear (Clear) Urine pH 5.5 (5.0-9.0) Urine Specific [place] > 1.050 (1.001-1.035) Urine Protein Negative (Negative) Urine Ketones Trace (Negative) Urine Blood 1+ /uL (Negative) H Urine Nitrite Negative (Negative) Urine Bilirubin Negative (Negative) Urine Urobilinogen Normal mg/dL (Negative) Urine Leukocyte Esterase Negative /uL (Negative) Urine RBC 3 /hpf (0 - 4) Urine Microscopic WBC 4 /HPF (0-5) Urine Squamous Epithelial Cells Few /hpf (<5) Urine Bacteria None seen /hpf (None Seen) Urine Yeast (Budding) Occasional /hpf (None Urine Glucose Normal mg/dL (Normal) Assessment/Plan Assessment/Plan Large bowel obstruction, colonic obstruction with transition point at the sigmoid colon Morbid obesity GERD Type 2 diabetes Hypertension Constipation Plan NPO GI consult for possible colonoscopy Surgical consult IV fluids Mineral oil Fleet enemas Monitor closely Full code Advance directives discussed for 18 minutes 10/19/2025: Bowel obstruction Constipation GI consult pending NPO Surgery is on the case IV fluids IV Flagyl Fleet enemas per surgery Looks like she might need a colonoscopy Monitor closely 10/20/2025: LORIE: Continue IV fluids, give another bolus of 500 mL of normal saline IV antibiotics Flagyl Add Levaquin NPO NG tube suction Surgery is following Monitor closely 10/21/2025: Continue IV fluids Give 1 more bolus of 500 mL NS NPO NG tube suction Monitor closely 10/22/2025: Clear liquid diet IV fluids IV antibiotics Monitor closely 10/23/25: Clear liquids IV fluids IV antibiotics Monitor 10/24/2025: Full liquid diet Physical therapy Out of bed as tolerated IV fluids IV antibiotics Levaquin and Flagyl Monitor closely 10/25/2025: Atrial fibrillation with RVR: Start amiodarone drip Replace magnesium IV Echocardiogram Morphine p.r.n. for severe pain Hypertension: Resume home losartan Discontinue the IV fluids Continue IV antibiotics Lovenox therapeutic dose Plan discussed with: Patient My Orders Orders - SIENA BRUCE MD Procedure Category Date Status Time Magnesium Sulfate PHA 10/25/25 In Process 1gm/100ml 11:00 Amiodarone PHA 10/25/25 In Process 450mg/250ml Ae 11:00 Amiodarone PHA 10/25/25 In Process 450mg/250ml Ae 17:00 Losartan Tablet PHA 10/26/25 In Process (Cozaar Tablet) 10:00 Metoprolol Tartrate PHA 10/25/25 In Process Tablet (Lopressor Ta 22:00 Echo 2d Mode Cardiac US 10/25/25 Logged DOP 10:42 Enoxaparin Sodium PHA 10/25/25 In Process (Lovenox) 22:00 Electrocardigram EKG 10/25/25 Logged 10:30 Electrocardigram EKG 10/25/25 Logged 11:49 Electrocardigram EKG 10/25/25 Logged 13:49 Date of Service: Oct 25, 2025 Billing Provider: SIENA BRUCE MD Common Visit Codes: [id number] INP/OBS CARE(HIGH) SIENA BRUCE MD Oct 25, 2025 11:55
[2025-10-25] MEDS: METOPROLOL TARTRATE 25 MG TAB PO ONE (11:58)
[2025-10-25] MEDS: ENOXAPARIN SOD 100 MG/1 ML SYRINGE SC ONE (11:58)
[2025-10-25] MEDS: MAGNESIUM SULFATE 1GM/100ML 100 ML IV SCH (12:00)
[2025-10-25] MEDS ORDERED: MORPHINE SULFATE INJ 2 MG/ml SYRG IV PRN (12:00)
--- NOTE | 2025-10-25 12:02 | ECG ---
[facility] Test Date: 2025-10-25 Test Time: 10:45:02 Pat Name: JOVANI SOTO Department: Room: 0293T A Gender: F [employer] Super[employer]: KALEB : 1955 Requested By: SIENA BRUCE Order Number: [id number] Reading MD: Truong Garcia Measurements Intervals [place] Rate: 136 P: 0 CO: 0 QRS: 54 QRSD: 81 T: 74 QT: 312 QTc: 470 Interpretive Statements Atrial fibrillation Nonspecific T abnormalities, lateral leads Electronically Signed On 10-27-2025 9:51:02 PST by Truong Garcia Please click the below link to view image of tracing.
[2025-10-25] MEDS ORDERED: ALPRAZolam 0.25 MG TAB PO PRN (13:00)
[2025-10-25] MEDS: CITALOPRAM HYDROBR 20 MG TAB PO ONE (13:33)
--- NOTE | 2025-10-25 14:20 | DVHPN2 ---
Progress Note - Dictate Date Seen: Oct 25, 2025 Medical Necessity Reason Pt with a Central, PICC or Fol: Yes Subjective Covering for Dr. He. E: atrial fibrillation with rapid ventricular response with a heart rate around 140 this am. denies chest pain. no liquid diet. vital signs Vital Sign Date Time Temp Pulse Resp B/P (MAP) Pulse Ox O2 Delivery O2 Flow Rate FiO2 10/25/25 13:00 98.1 130 18 148/89 (108) 98 98.1 10/25/25 08:15 Nasal Cannula* 2 28 Total Intake and Output 10/24/25 10/24/25 10/25/25 15:00 23:00 07:00 Intake Total 250 ml 750 ml 400 ml Output Total 450 ml 950 ml Balance 250 ml 300 ml -550 ml medications Current Medications Medications Dose Ordered Sig/Aayush Route Start Time Stop Time Status Last Admin Dose Admin Diagnostic Test (Pha) 1 strip Q6HR 10/18/25 00:00 10/25/25 12:21 1 STRIP Insulin Human Regular Q6HR SC 10/18/25 00:00 10/25/25 12:29 2 UNITS Dextrose 50 ml UD PRN IV 10/17/25 19:45 Acetaminophen/ Hydrocodone Bitart 1 tab Q4HP PRN PO 10/17/25 19:45 Hold 10/19/25 10:56 1 TAB Ondansetron HCl 4 mg Q4HP PRN IV 10/17/25 19:45 10/19/25 00:47 4 MG Nitroglycerin 0.4 mg Q5MINP PRN SL 10/17/25 19:45 Morphine Sulfate 2 mg Q30M PRN IV 10/17/25 19:45 Hydralazine HCl 10 mg Q6HP PRN IV 10/17/25 19:45 Alprazolam 0.25 mg Q8HP PRN PO 10/18/25 17:15 Acetaminophen 650 mg Q6HR NG 10/20/25 00:00 10/25/25 12:33 650 MG Metronidazole 100 ml @ 100 mls/hr Q8HR IV 10/19/25 22:00 10/25/25 05:00 100 MLS/HR Levofloxacin/ Dextrose 150 ml @ 100 mls/hr DAILY IV 10/21/25 10:46 10/25/25 09:38 100 MLS/HR Pantoprazole Sodium 40 mg DAILY IV 10/22/25 10:00 10/25/25 09:38 40 MG Amiodarone HCl 250 ml @ 16.66 mls/ hr Q15H1M IV 10/25/25 17:00 Losartan Potassium 25 mg DAILY PO 10/26/25 10:00 Metoprolol Tartrate 12.5 mg BID PO 10/25/25 22:00 Enoxaparin Sodium 100 mg Q12HR SC 10/25/25 22:00 Morphine Sulfate 2 mg Q4HPRN PRN IV 10/25/25 12:00 Citalopram Hydrobromide 10 mg DAILY PO 10/26/25 10:00 Alprazolam 0.25 mg Q8HP PRN PO 10/25/25 13:00 objective GEN: NAD ABD: incision clean and dry. colostomy viable and functioning. laboratory and microbiology Laboratory Tests 10/25/25 05:10 Test 10/25/25 05:10 Range/Units Serum Glucose 83 74-106 mg/dL Assessment/Plan A: 1. POD #6 P: 1. surgically stable 2. a fib rate control per primary team. Dietary Evaluation Review Comments: Nutrition Recommendation: 1) Advance to Soft diet as medically feasible 2) Consider TPN if NPO>7 days 3) Monitor NPO status, lab values, weight trend, and I/O Expected Outcomes/Goals: GI symptoms to improve Intake to meet >75% estimated needs FU 2-3 days Fluid Accumulation (N/A): N/A Protein Calorie Malnutrition: N/A Is there a minimum of two crit: No Plan discussed with: Patient JEANNETTE WHYTE MD Oct 25, 2025 14:20
[2025-10-25] MEDS: ALPRAZolam 0.25 MG TAB PO PRN (14:25)
[2025-10-25] MEDS: METOPROLOL TARTRATE 25 MG TAB PO SCH (21:24)
[2025-10-25] MEDS: ENOXAPARIN SOD 100 MG/1 ML SYRINGE SC SCH (21:24)
--- NOTE | 2025-10-25 22:42 | DVHPN2 ---
Progress Note - Dictate Date Seen: Oct 25, 2025 Medical Necessity Reason Pt with a Central, PICC or Fol: Yes Subjective Postop day 6. S/P diverting colostomy Colostomy is functional with liquid stool , tolerating liquid diet E: atrial fibrillation with rapid ventricular response with a heart rate around 140 this am. vital signs Vital Sign Date Time Temp Pulse Resp B/P (MAP) Pulse Ox O2 Delivery O2 Flow Rate FiO2 10/25/25 21:24 60 10/25/25 21:00 97.8 17 151/84 (106) 100 97.8 10/25/25 20:00 Nasal Cannula* 2 28 Total Intake and Output 10/24/25 10/24/25 10/25/25 15:00 23:00 07:00 Intake Total 250 ml 750 ml 400 ml Output Total 450 ml 950 ml Balance 250 ml 300 ml -550 ml medications Current Medications Medications Dose Ordered Sig/Aayush Route Start Time Stop Time Status Last Admin Dose Admin Diagnostic Test (Pha) 1 strip Q6HR 10/18/25 00:00 10/25/25 18:04 1 STRIP Insulin Human Regular Q6HR SC 10/18/25 00:00 10/25/25 17:36 2 UNITS Dextrose 50 ml UD PRN IV 10/17/25 19:45 Acetaminophen/ Hydrocodone Bitart 1 tab Q4HP PRN PO 10/17/25 19:45 Hold 10/19/25 10:56 1 TAB Ondansetron HCl 4 mg Q4HP PRN IV 10/17/25 19:45 10/19/25 00:47 4 MG Nitroglycerin 0.4 mg Q5MINP PRN SL 10/17/25 19:45 Morphine Sulfate 2 mg Q30M PRN IV 10/17/25 19:45 Hydralazine HCl 10 mg Q6HP PRN IV 10/17/25 19:45 Alprazolam 0.25 mg Q8HP PRN PO 10/18/25 17:15 10/25/25 14:25 0.25 MG Acetaminophen 650 mg Q6HR NG 10/20/25 00:00 10/25/25 17:35 650 MG Metronidazole 100 ml @ 100 mls/hr Q8HR IV 10/19/25 22:00 10/25/25 21:23 100 MLS/HR Levofloxacin/ Dextrose 150 ml @ 100 mls/hr DAILY IV 10/21/25 10:46 10/25/25 09:38 100 MLS/HR Pantoprazole Sodium 40 mg DAILY IV 10/22/25 10:00 10/25/25 09:38 40 MG Amiodarone HCl 250 ml @ 16.66 mls/ hr Q15H1M IV 10/25/25 17:00 10/25/25 18:22 16.66 MLS/HR Losartan Potassium 25 mg DAILY PO 10/26/25 10:00 Metoprolol Tartrate 12.5 mg BID PO 10/25/25 22:00 Enoxaparin Sodium 100 mg Q12HR SC 10/25/25 22:00 10/25/25 21:24 100 MG Morphine Sulfate 2 mg Q4HPRN PRN IV 10/25/25 12:00 Citalopram Hydrobromide 10 mg DAILY PO 10/26/25 10:00 Alprazolam 0.25 mg Q8HP PRN PO 10/25/25 13:00 objective GEN: NAD ABD: incision clean and dry. colostomy viable and functioning. laboratory and microbiology Laboratory Tests 10/25/25 05:10 Test 10/25/25 05:10 Range/Units Serum Glucose 83 74-106 mg/dL Problems(with codes): (1) Status post colostomy (2) Intractable abdominal pain (3) Bowel obstruction (4) Abdominal distention Prognosis Plan Advance diet as tolerated Protonix 40 mg IV daily Cardiology follow up Outpatient elective colonoscopy prior to reversal of colostomy Dietary Evaluation Review Comments: Nutrition Recommendation: 1) Advance to Soft diet as medically feasible 2) Consider TPN if NPO>7 days 3) Monitor NPO status, lab values, weight trend, and I/O Expected Outcomes/Goals: GI symptoms to improve Intake to meet >75% estimated needs FU 2-3 days Fluid Accumulation (N/A): N/A Protein Calorie Malnutrition: N/A Is there a minimum of two crit: No Plan discussed with: Patient TALISHA GUTHRIE MD Oct 25, 2025 22:42
[2025-10-26] VITALS (8 sets, daily range): BP systolic 132–154; BP diastolic 50–90; PULSE 63–83; RESP 16–18; TEMP 95.9–99.5; O2SAT 98–99
[2025-10-26 06:51] LABS: Anion Gap 8 (5-15); Carbon Dioxide 28 mmol/L (20-31); Chloride 104 mmol/L (98-107); Potassium 3.6 mmol/L (3.5-5.1); Sodium 140 mmol/L (136-145)
[2025-10-26 06:57] LABS: BUN/Creatinine Ratio 7.8 (10.0-20.0)
[2025-10-26 06:58] LABS: Magnesium 1.7 mg/dL (1.6-2.6)
[2025-10-26 07:08] LABS: Blood Urea Nitrogen 6 mg/dL (9-23); Calcium 8.4 mg/dL (8.7-10.4); Glucose 119 mg/dL (74-106)
[2025-10-26] MEDS: LOSARTAN POTASSIUM 25 MG TAB PO SCH (10:57)
[2025-10-26] MEDS: CITALOPRAM HYDROBR 20 MG TAB PO SCH (10:59)
--- NOTE | 2025-10-26 11:30 | DVHPN2 ---
Progress Note - Surgical Date Seen: Oct 26, 2025 Post op day Post op day: 7 Subjective Patient reports: No new complaints (Patient feels good, she has been tolerating soft diet for several days now, went into AFib RVR yesterday, today rate controlled, producing per ostomy) Review of Systems: Deferred Objective Vital signs Vital Sign Date Time Temp Pulse Resp B/P (MAP) Pulse Ox O2 Delivery O2 Flow Rate FiO2 10/26/25 10:57 132/50 10/26/25 08:34 95.9 66 16 98 95.9 10/25/25 20:00 Nasal Cannula* 2 28 Total Intake and Output 10/25/25 10/25/25 10/26/25 14:59 22:59 06:59 Intake Total 250 ml 1250 ml 400 ml Output Total 1500 ml 1250 ml Balance 250 ml -250 ml -850 ml Medications Current Medications Medications Dose Ordered Sig/Aayush Route Start Time Stop Time Status Last Admin Dose Admin Diagnostic Test (Pha) 1 strip Q6HR 10/18/25 00:00 10/26/25 05:09 1 STRIP Insulin Human Regular Q6HR SC 10/18/25 00:00 10/25/25 23:09 2 UNITS Dextrose 50 ml UD PRN IV 10/17/25 19:45 Acetaminophen/ Hydrocodone Bitart 1 tab Q4HP PRN PO 10/17/25 19:45 Hold 10/19/25 10:56 1 TAB Ondansetron HCl 4 mg Q4HP PRN IV 10/17/25 19:45 10/19/25 00:47 4 MG Nitroglycerin 0.4 mg Q5MINP PRN SL 10/17/25 19:45 Morphine Sulfate 2 mg Q30M PRN IV 10/17/25 19:45 Hydralazine HCl 10 mg Q6HP PRN IV 10/17/25 19:45 Alprazolam 0.25 mg Q8HP PRN PO 10/18/25 17:15 10/25/25 22:54 0.25 MG Acetaminophen 650 mg Q6HR NG 10/20/25 00:00 10/26/25 05:09 650 MG Metronidazole 100 ml @ 100 mls/hr Q8HR IV 10/19/25 22:00 10/26/25 05:09 100 MLS/HR Levofloxacin/ Dextrose 150 ml @ 100 mls/hr DAILY IV 10/21/25 10:46 10/26/25 10:50 100 MLS/HR Pantoprazole Sodium 40 mg DAILY IV 10/22/25 10:00 10/25/25 09:38 40 MG Amiodarone HCl 250 ml @ 16.66 mls/ hr Q15H1M IV 10/25/25 17:00 10/26/25 10:45 16.66 MLS/HR Losartan Potassium 25 mg DAILY PO 10/26/25 10:00 10/26/25 10:57 25 MG Metoprolol Tartrate 12.5 mg BID PO 10/25/25 22:00 10/26/25 10:57 12.5 MG Enoxaparin Sodium 100 mg Q12HR SC 10/25/25 22:00 10/26/25 10:54 100 MG Morphine Sulfate 2 mg Q4HPRN PRN IV 10/25/25 12:00 Citalopram Hydrobromide 10 mg DAILY PO 10/26/25 10:00 10/26/25 10:59 10 MG Alprazolam 0.25 mg Q8HP PRN PO 10/25/25 13:00 Laboratory Laboratory Tests 10/26/25 05:46 10/25/25 05:10 Test 10/26/25 05:46 Range/Units Serum Glucose 119 H 74-106 mg/dL Examination: GENERAL:Normal (AAO x3), LUNGS:Normal (Nonlabored breathing with symmetric expansion), ABDOMEN:Normal (Nondistended, midline incision with curtis in place, some erythema in the lower end, left abdominal ostomy with stool in bag and pink mucosa, nontender, soft, depressible) Labs and/or images reviewed: Labs reviewed by me (No leukocytosis) Problem List/Assessment/Plan Assessment and Plan Mrs. Calero is a 70-year-old female who presents with bloating for the past week and inability to have a bowel movement, but passing occasional flatus. CT shows colonic distention up to the sigmoid colon with a transition point, showing distal sigmoid colon decompression, no discrete mass identified, it looks like a stricture segment versus inflammatory process versus just collapse intestine versus non visible mass on imaging. I reviewed a prior CT of the abdomen pelvis from earlier in this year, that CT was done with oral contrast and it shows the same collapse in the same segment of the sigmoid with contrast making its way through it, but no proximal colonic distention. I would like the patient to get a colonoscopy prior to any possible surgical management. Interval: Patient is currently postop day 7 from exploratory laparotomy, partial sigmoid resection and end colostomy. Patient feeling good this morning, tolerated full liquid diet for several days now, having good ostomy production, we will advance diet to regular. Patient is cleared for discharge per surgical standpoint. 1. Cleared for discharge per surgical standpoint 2. Diet regular 3. Patient will need ostomy education, and materials for home 4. No lifting over 10 lb for 8 weeks 5. May shower, soap and water okay to run over incision and ostomy. No swimming and/or bathing. 6. Tylenol and/or ibuprofen for baseline pain control 7. Recommend [employer] 5-325 mg 1 tab p.o. every 6 hours p.r.n. severe pain 8. Follow up with Dr. He at surgery Clinic in 1 week My Orders My Orders Orders - CHERYLE KARIMI MD Procedure Category Date Status Time Regular Diet DIET 10/26/25 Transmitted Lunch Plan discussed with Plan discussed with: Patient, Spouse Visit Coding Surgery Date of Service if different f: Oct 26, 2025 Billing Provider: CHERYLE KARIMI MD Surgery Visit Codes: [id number] INP/OBS CARE(HIGH) CHERYLE KARIMI MD Oct 26, 2025 11:30
--- NOTE | 2025-10-26 13:35 | DVHPN2 ---
Subjective She is back in sinus rhythm now She is still on amiodarone drip Tolerating her diet Changes from previous H/P or p: Changes Eyes: No Pain, No Vision change, No Conjunctivae inflammation, No Eyelid inflammation, No Other, No Redness ENT: No Ear pain, No Ear discharge, No Nose pain, No Nose discharge, No Nose congestion, No Mouth pain, No Mouth swelling, No Throat pain, No Throat swelling, No Other Cardiovascular: No Chest Pain, No Palpitations, No Orthopnea, No Paroxysmal Noc. Dyspnea, No Edema, No Lt Headedness, No Other Respiratory: No Cough, No Dry, No Shortness of breath, No SOB with excertion, No Wheezing, No Hemoptysis, No Pleuritic Pain, No Sputum, No Other Gastrointestinal: Nausea; No Vomiting; Abdominal Pain; No Diarrhea; C onstipation; No Melena, No Hematochezia, No Other Genitourinary: No Dysuria, No Frequency, No Incontinence, No Hematuria, No Retention, No Other Musculoskeletal: No other, No neck pain, No shoulder pain, No arm pain, No back pain, No hand pain, No leg pain, No foot pain Skin: No Rash, No Lesions, No Jaundice, No Bruising, No Other Objective Vitals Vital Signs Date Time Temp Pulse Resp B/P (MAP) Pulse Ox O2 Delivery O2 Flow Rate FiO2 10/26/25 10:57 132/50 10/26/25 08:34 95.9 66 16 98 95.9 10/25/25 20:00 Nasal Cannula* 2 28 Intake/Output Intake and Output 10/26/25 07:00 Intake Total 1900 ml Output Total 2750 ml Balance -850 ml Intake Oral 1450 ml IV Total 450 ml Output Urine Total 2650 ml Stool Total 100 ml General Appearance: Alert, Oriented X3, Cooperative Lungs: Clear to auscultation, Normal air movement Cardiovascular: Regular rate, Normal S1, Normal S2, No murmurs Abdomen: Normal bowel sounds, Other (Distended) Extremities: No edema Medications Current Medications Medications Dose Ordered Sig/Aayush Route Start Time Stop Time Status Last Admin Dose Admin Diagnostic Test (Pha) 1 strip Q6HR 10/18/25 00:00 10/26/25 12:23 1 STRIP Insulin Human Regular Q6HR SC 10/18/25 00:00 10/26/25 12:20 2 UNITS Dextrose 50 ml UD PRN IV 10/17/25 19:45 Acetaminophen/ Hydrocodone Bitart 1 tab Q4HP PRN PO 10/17/25 19:45 Hold 10/19/25 10:56 1 TAB Ondansetron HCl 4 mg Q4HP PRN IV 10/17/25 19:45 10/19/25 00:47 4 MG Nitroglycerin 0.4 mg Q5MINP PRN SL 10/17/25 19:45 Morphine Sulfate 2 mg Q30M PRN IV 10/17/25 19:45 Hydralazine HCl 10 mg Q6HP PRN IV 10/17/25 19:45 Alprazolam 0.25 mg Q8HP PRN PO 10/18/25 17:15 10/25/25 22:54 0.25 MG Acetaminophen 650 mg Q6HR NG 10/20/25 00:00 10/26/25 05:09 650 MG Metronidazole 100 ml @ 100 mls/hr Q8HR IV 10/19/25 22:00 10/26/25 05:09 100 MLS/HR Levofloxacin/ Dextrose 150 ml @ 100 mls/hr DAILY IV 10/21/25 10:46 10/26/25 10:50 100 MLS/HR Pantoprazole Sodium 40 mg DAILY IV 10/22/25 10:00 10/26/25 12:20 40 MG Amiodarone HCl 250 ml @ 16.66 mls/ hr Q15H1M IV 10/25/25 17:00 10/26/25 10:45 16.66 MLS/HR Losartan Potassium 25 mg DAILY PO 10/26/25 10:00 10/26/25 10:57 25 MG Metoprolol Tartrate 12.5 mg BID PO 10/25/25 22:00 10/26/25 10:57 12.5 MG Enoxaparin Sodium 100 mg Q12HR SC 10/25/25 22:00 10/26/25 10:54 100 MG Morphine Sulfate 2 mg Q4HPRN PRN IV 10/25/25 12:00 Citalopram Hydrobromide 10 mg DAILY PO 10/26/25 10:00 10/26/25 10:59 10 MG Alprazolam 0.25 mg Q8HP PRN PO 10/25/25 13:00 Laboratory Results Laboratory Tests 10/25/25 05:10 10/26/25 05:46 Chemistry Test 10/26/25 05:46 Calcium Level 8.4 mg/dL (8.7-10.4) L Magnesium Level 1.7 mg/dL (1.6-2.6) Urinalysis Test 10/17/25 18:23 Urine Color Light-yellow (Yellow) Urine Clarity Clear (Clear) Urine pH 5.5 (5.0-9.0) Urine Specific [place] > 1.050 (1.001-1.035) Urine Protein Negative (Negative) Urine Ketones Trace (Negative) Urine Blood 1+ /uL (Negative) H Urine Nitrite Negative (Negative) Urine Bilirubin Negative (Negative) Urine Urobilinogen Normal mg/dL (Negative) Urine Leukocyte Esterase Negative /uL (Negative) Urine RBC 3 /hpf (0 - 4) Urine Microscopic WBC 4 /HPF (0-5) Urine Squamous Epithelial Cells Few /hpf (<5) Urine Bacteria None seen /hpf (None Seen) Urine Yeast (Budding) Occasional /hpf (None Urine Glucose Normal mg/dL (Normal) Assessment/Plan Assessment/Plan Large bowel obstruction, colonic obstruction with transition point at the sigmoid colon Morbid obesity GERD Type 2 diabetes Hypertension Constipation Plan NPO GI consult for possible colonoscopy Surgical consult IV fluids Mineral oil Fleet enemas Monitor closely Full code Advance directives discussed for 18 minutes 10/19/2025: Bowel obstruction Constipation GI consult pending NPO Surgery is on the case IV fluids IV Flagyl Fleet enemas per surgery Looks like she might need a colonoscopy Monitor closely 10/20/2025: LORIE: Continue IV fluids, give another bolus of 500 mL of normal saline IV antibiotics Flagyl Add Levaquin NPO NG tube suction Surgery is following Monitor closely 10/21/2025: Continue IV fluids Give 1 more bolus of 500 mL NS NPO NG tube suction Monitor closely 10/22/2025: Clear liquid diet IV fluids IV antibiotics Monitor closely 10/23/25: Clear liquids IV fluids IV antibiotics Monitor 10/24/2025: Full liquid diet Physical therapy Out of bed as tolerated IV fluids IV antibiotics Levaquin and Flagyl Monitor closely 10/25/2025: Atrial fibrillation with RVR: Start amiodarone drip Replace magnesium IV Echocardiogram Morphine p.r.n. for severe pain Hypertension: Resume home losartan Discontinue the IV fluids Continue IV antibiotics Lovenox therapeutic dose 10/26/2025: Atrial fibrillation: Resolved, discontinue amiodarone, continue metoprolol Switch Lovenox to Eliquis Hypertension: Losartan Physical therapy Out of bed as tolerated Monitor closely DC [place] Discharge planning for tomorrow Plan discussed with: Patient My Orders Orders - SIENA BRUCE MD Procedure Category Date Status Time Discontinue [place] CELESTINA 10/26/25 In Process Catheter 12:27 Date of Service: Oct 26, 2025 Billing Provider: SIENA BRUCE MD Common Visit Codes: [id number] INP/OBS CARE(HIGH) SIENA BRUCE MD Oct 26, 2025 13:35
--- NOTE | 2025-10-26 13:38 | DVHSR ---
APPROVED REPORT EXAM: Two-dimensional and M-mode echocardiogram with Doppler and color Doppler. Blood Pressure: 140/87 mmHg INDICATION Atrial Fibrillation RISK FACTORS Obesity: Height: 5'4", Weight: 249 DIMENSIONS LVDd 3.9 (3.8-5.7cm) LA (2D) 4.6 (1.9-4.0cm) Aortic Root 2.9 (2.0-3.7cm) LVDs 2.8 (2.5-4.0cm) LA (MM) (1.9-4.0cm) Aortic Cusp Exc 1.7 (1.5-2.0cm) EF (%) 56.0 (55-70%) Rt. Atrium 4.0 (1.9-4.0cm) Asc. Aorta cm IVSd 1.3 (0.7-1.1cm) RV (D) (1.8-2.4cm) PWd 1.3 (0.7-1.1cm) Mitral Valve Mitral Mitral Stenosis E wave 1.29m/s MV Mean GR. 5mmHg A wave 1.51m/s MV Peak GR. 12mmHg E/A ratio 0.9 2D MVA cm2 DECEL Time 285ms PRESS 1/2 Time 72ms IVRT ms Dop MVA 3.06cm2 Aortic Valve Aortic Valve Aortic Stenosis V1 1.47m/s AO Mean GR. 5mmHg V2 1.58m/s AO Peak GR. 10mmHg LVOT Diameter 2.0 (1.8-2.4cm) Doppler EUGENIA 2.92cm2 Pulmonic Valve V2 1.38m/s Other Information Quality : Limited Rhythm : Technically limited study due to body habitus, patient laying flat s/p surgery. Conclusion lvef 60% mild to moderate mitral stenosis, mean gradient of 4 mmhg, heavy mac left atrium enlarged milld mitral regurg
[2025-10-26] MEDS: APIXABAN 5 MG TAB PO SCH (21:11)
[2025-10-27] VITALS (8 sets, daily range): BP systolic 133–151; BP diastolic 70–88; PULSE 16–82; RESP 17–18; TEMP 98–99; O2SAT 95–100
[2025-10-27 06:04] LABS: Anion Gap 7 (5-15); Carbon Dioxide 28 mmol/L (20-31); Chloride 104 mmol/L (98-107); Potassium 3.6 mmol/L (3.5-5.1); Sodium 139 mmol/L (136-145)
[2025-10-27 06:06] LABS: Calcium 8.1 mg/dL (8.7-10.4)
[2025-10-27 06:10] LABS: BUN/Creatinine Ratio 7.2 (10.0-20.0); Magnesium 1.7 mg/dL (1.6-2.6)
[2025-10-27 06:21] LABS: Glucose 126 mg/dL (74-106)
[2025-10-27 06:22] LABS: Blood Urea Nitrogen 5 mg/dL (9-23)
--- NOTE | 2025-10-27 12:03 | DVHPN2 ---
Progress Note - Surgical Date Seen: Oct 27, 2025 Post op day Post op day: 8 Subjective Patient reports: No new complaints (Patient doing well, tolerating regular diet, ambulating, afebrile with vital stable.) Review of Systems: Deferred Objective Vital signs Vital Sign Date Time Temp Pulse Resp B/P (MAP) Pulse Ox O2 Delivery O2 Flow Rate FiO2 10/27/25 10:11 147/88 10/27/25 10:08 65 10/27/25 09:00 98.0 18 99 98.0 10/27/25 08:00 Room Air* 0 21 Total Intake and Output 10/26/25 10/26/25 10/27/25 15:00 23:00 07:00 Intake Total 150 ml 100 ml 250 ml Output Total 1800 ml 200 ml Balance 150 ml -1700 ml 50 ml Medications Current Medications Medications Dose Ordered Sig/Aayush Route Start Time Stop Time Status Last Admin Dose Admin Diagnostic Test (Pha) 1 strip Q6HR 10/18/25 00:00 10/27/25 05:18 1 STRIP Insulin Human Regular Q6HR SC 10/18/25 00:00 10/26/25 12:20 2 UNITS Dextrose 50 ml UD PRN IV 10/17/25 19:45 Acetaminophen/ Hydrocodone Bitart 1 tab Q4HP PRN PO 10/17/25 19:45 10/19/25 10:56 1 TAB Ondansetron HCl 4 mg Q4HP PRN IV 10/17/25 19:45 10/19/25 00:47 4 MG Nitroglycerin 0.4 mg Q5MINP PRN SL 10/17/25 19:45 Morphine Sulfate 2 mg Q30M PRN IV 10/17/25 19:45 Hydralazine HCl 10 mg Q6HP PRN IV 10/17/25 19:45 Alprazolam 0.25 mg Q8HP PRN PO 10/18/25 17:15 10/26/25 15:03 0.25 MG Acetaminophen 650 mg Q6HR NG 10/20/25 00:00 10/27/25 05:17 650 MG Metronidazole 100 ml @ 100 mls/hr Q8HR IV 10/19/25 22:00 10/27/25 05:18 100 MLS/HR Levofloxacin/ Dextrose 150 ml @ 100 mls/hr DAILY IV 10/21/25 10:46 10/27/25 10:11 100 MLS/HR Pantoprazole Sodium 40 mg DAILY IV 10/22/25 10:00 10/27/25 10:06 40 MG Losartan Potassium 25 mg DAILY PO 10/26/25 10:00 10/27/25 10:11 25 MG Metoprolol Tartrate 12.5 mg BID PO 10/25/25 22:00 10/27/25 10:08 12.5 MG Morphine Sulfate 2 mg Q4HPRN PRN IV 10/25/25 12:00 Citalopram Hydrobromide 10 mg DAILY PO 10/26/25 10:00 10/27/25 10:09 10 MG Apixaban 5 mg BID PO 10/26/25 22:00 10/27/25 10:09 5 MG Laboratory Laboratory Tests 10/27/25 05:33 10/25/25 05:10 Test 10/27/25 05:33 Range/Units Serum Glucose 126 H 74-106 mg/dL Examination: GENERAL:Normal (AAO x3), LUNGS:Normal (Nonlabored breathing with symmetric expansion), ABDOMEN:Normal (Nondistended, midline incision with curtis in place and without surrounding signs of infection, left abdominal ostomy with stool and pink mucosa, nontender) Labs and/or images reviewed: Labs reviewed by me Problem List/Assessment/Plan Assessment and Plan Mrs. Calero is a 70-year-old female who presents with bloating for the past week and inability to have a bowel movement, but passing occasional flatus. CT shows colonic distention up to the sigmoid colon with a transition point, showing distal sigmoid colon decompression, no discrete mass identified, it looks like a stricture segment versus inflammatory process versus just collapse intestine versus non visible mass on imaging. I reviewed a prior CT of the abdomen pelvis from earlier in this year, that CT was done with oral contrast and it shows the same collapse in the same segment of the sigmoid with contrast making its way through it, but no proximal colonic distention. I would like the patient to get a colonoscopy prior to any possible surgical management. Interval: Patient is currently postop day 8 from exploratory laparotomy, partial sigmoid resection and end colostomy. Patient continues to do well, tolerating regular diet, ostomy producing, no abdominal pain, ambulating. Patient is cleared for discharge per surgical standpoint. 1. Cleared for discharge per surgical standpoint 2. Diet regular 3. Patient will need ostomy education, and materials for home 4. No lifting over 10 lb for 8 weeks 5. May shower, soap and water okay to run over incision and ostomy. No swimming and/or bathing. 6. Tylenol and/or ibuprofen for baseline pain control 7. Recommend [place] 5-325 mg 1 tab p.o. every 6 hours p.r.n. severe pain 8. Follow up with Dr. He at surgery Clinic in 1 week Plan discussed with Plan discussed with: Patient Visit Coding Surgery Date of Service if different f: Oct 27, 2025 Billing Provider: CHERYLE KARIMI MD Surgery Visit Codes: [id number] INP/OBS CARE(HIGH) CHERYLE KARIMI MD Oct 27, 2025 12:03
[2025-10-27] MEDS ORDERED: APIX5TAB PO (13:43)
[2025-10-27] MEDS ORDERED: METO25TA36 PO (13:43)
[2025-10-27] MEDS ORDERED: ALPR0.25 PO (13:48)
--- NOTE | 2025-10-27 13:48 | DVHDS2 ---
Discharge Summary Date of Admission Oct 17, 2025 at 19:37 Date of Discharge: Oct 27, 2025 Labs/Diagnostic Data: Laboratory Results Test 10/27/25 12:52 10/27/25 05:33 10/25/25 05:10 10/24/25 05:49 POC Glucose 182 mg/dl (70-106) Sodium Level 139 mmol/L (136-145) Potassium Level 3.6 mmol/L (3.5-5.1) Chloride Level 104 mmol/L (98-107) Carbon Dioxide Level 28 mmol/L (20-31) Anion Gap 7 (5-15) Blood Urea Nitrogen 5 mg/dL (9-23) Creatinine 0.69 mg/dL (0.550-1.02) Glomerular Filtration Rate Calc 93 mL/min (>90) BUN/Creatinine Ratio 7.2 (10.0-20.0) Serum Glucose 126 mg/dL (74-106) Calcium Level 8.1 mg/dL (8.7-10.4) Magnesium Level 1.7 mg/dL (1.6-2.6) White Blood Count 5.9 10^3/uL (4.4-10.8) Red Blood Count 2.96 10^6/uL (4.0-5.20) Hemoglobin 9.2 g/dL (12.2-16.2) Hematocrit 27.0 % (36.0-46.0) Mean Corpuscular Volume 91.1 fL (80.0-100.0) Mean Corpuscular Hemoglobin 31.0 pg (28.0-32.0) Mean Corpuscular Hemoglobin Concent 34.1 g/dL (32.0-36.0) Red Cell Distribution Width 13.3 % (11.8-14.3) Platelet Count 210 10^3/uL (140-450) Mean Platelet Volume 7.3 fL (6.9-10.8) Neutrophils (%) (Auto) 68.3 % (37.0-80.0) Lymphocytes (%) (Auto) 20.6 % (10.0-50.0) Monocytes (%) (Auto) 8.6 % (0.0-12.0) Eosinophils (%) (Auto) 2.2 % (0.0-7.0) Basophils (%) (Auto) 0.3 % (0.0-2.0) Neutrophils # (Auto) 4.0 10 ^3/uL (1.6-8.6) Lymphocytes # (Auto) 1.2 10 ^3/uL (0.4-5.4) Monocytes # (Auto) 0.5 10 ^3/uL (0-1.3) Eosinophils # (Auto) 0.1 10 ^3/uL (0-0.8) Basophils # (Auto) 0 10 ^3/uL (0-0.2) Nucleated Red Blood Cells 0.1 % Total Bilirubin 0.3 mg/dL (0.2-1.0) Aspartate Amino Transferase (AST) 22 U/L (13-40) Alanine Aminotransferase (ALT) 18 U/L (7-40) Alkaline Phosphatase 55 U/L (46-116) Total Protein 5.3 g/dL (5.7-8.2) Albumin 3.0 g/dL (3.2-4.8) Test 10/23/25 05:35 10/19/25 18:51 10/19/25 12:52 10/19/25 06:20 Phosphorus Level 2.8 mg/dL (2.4-5.1) Tumor Marker Alpha Fetoprotein <1.8 ng/mL (0.0-9.2) CA 19-9 Antigen 9 U/mL (0-35) CA 125 Antigen 19.2 U/mL (0.0-38.1) Prothrombin Time 11.2 sec (9.3-11.8) Prothrombin Time INR 1.06 (0.9-1.15) Carcinoembryonic Antigen 2.46 ng/mL (<=5.0) Lactic Acid Level 1.1 mmol/L (0.4-2.0) Test 10/17/25 18:23 10/17/25 13:07 Urine Color Light-yellow (Yellow) Urine Clarity Clear (Clear) Urine pH 5.5 (5.0-9.0) Urine Specific [place] > 1.050 (1.001-1.035) Urine Protein Negative (Negative) Urine Ketones Trace (Negative) Urine Blood 1+ /uL (Negative) Urine Nitrite Negative (Negative) Urine Bilirubin Negative (Negative) Urine Urobilinogen Normal mg/dL (Negative) Urine Leukocyte Esterase Negative /uL (Negative) Urine RBC 3 /hpf (0 - 4) Urine Microscopic WBC 4 /HPF (0-5) Urine Squamous Epithelial Cells Few /hpf (<5) Urine Bacteria None seen /hpf (None Seen) Urine Yeast (Budding) Occasional /hpf (None Urine Glucose Normal mg/dL (Normal) Troponin I High Sensitivity 4 ng/L (</=34) Lipase 40 U/L (12-53) Other Laboratory Tests 10/27/25 05:33 10/25/25 05:10 Brief Hx & Hospital Course: Final diagnoses: Large bowel obstruction, colonic obstruction with transition point at the sigmoid colon Status post colon resection with colostomy Morbid obesity GERD Type 2 diabetes Hypertension Constipation Atrial fibrillation with rapid ventricular response, resolved 70-year-old female was admitted for abdominal pain and suspected of large bowel obstruction with a suspected mass at the sigmoid colon Surgery was done with colon resection and colostomy She had a stricture in the area No tumor She recovered well but she developed atrial fibrillation with rapid ventricular response which needed IV amiodarone drip and she converted back to sinus quickly She was started on beta blockers and Eliquis She is doing well now He is ambulating well Discharged home today with home health and the bedside commode and a walker Xajesusx p.r.n. for anxiety Follow up with Dr. He in 1-2 weeks Condition at Discharge: Stable Final Diagnosis/Problems List Large bowel obstruction, colonic obstruction with transition point at the sigmoid colon Morbid obesity GERD Type 2 diabetes Hypertension Constipation Discharge Disposition: Home with Health Services SNF Discharge Will this Physician continue t: No Discharge Instruct/Medications Scheduled Apixaban Base (Eliquis), 5 MG PO BID Atorvastatin Calcium (Lipitor), 10 MG PO QPM, (Reported) Cholecalciferol (Vitamin D3), 50,000 TAB PO QWEEKLY, (Reported) Escitalopram Oxalate (Lexapro), 1 TAB PO DAILY, (Reported) Losartan Potassium (Losartan Potassium), 25 MG PO DAILY, (Reported) Losartan Potassium (Losartan Potassium), 1 TAB PO DAILY Metoprolol Succinate (Toprol Xl), 1 TAB PO DAILY Discharge Statement: "Patient was advised to return to the ER or call 911 if any headaches, dizziness, shortness of breath, chest pain, abdominal pain, bleeding, fevers, or worsening of medical condition. Patient was counseled about treatment plan, medications, possible side effects, patientverbalized understanding. All questions were answered to the best of my ability. This discharge took greater then 30 minutes in planning, reviewing documentation, counseling the patient, and discussing with other team members." ASSESSMENT ASSESSMENT Assessment Distal sigmoid mass Date of Service: Oct 27, 2025 Billing Provider: SIENA BRUCE MD Common Visit Codes: [id number]/[id number] DISCH DAY >30min SIENA BRUCE MD Oct 27, 2025 13:48
--- NOTE | 2025-10-27 17:28 | DVHPN2 ---
Progress Note Date Seen: Oct 27, 2025 Resident Creating Document: FINESSE GAINES RESIDENT Medical Necessity Reason Pt with a Central, PICC or Fol: Yes Subjective Review of Systems 70-year-old female presented to the ER with a complaint of abdominal pain, bloating and constipation patient reports that her last bowel movement was 1 week back, reports that she has has been passing gas on and off. Reports crampy abdominal pain along with nausea. Reports generalized 40, and weakness. Denies any personal history of cancer. Last colonoscopy 5 years back. Past medical/surgical history: GERD, hypertension, constipation, diverticulosis on colonoscopy Social history: Denies smoking/drinking/drug use Family history notable for breast cancer in sister and cousin GI consultation was ordered by Dr. He for colonoscopy but the patient is currently undergoing ex lap. Patient seen and examined at bedside. Reports abdominal pain on ambulation. NG to LIS draining biliary colored secretion. Abdominal binder in place. Dressing and suture clean dry and intact. Not passing gas. 10/21-patient seen and examined, NG to LIS, on ice chips, bowel sounds normoactive. Colostomy output brownish 10/22 - on cl liq diet, no well, abd tender but soft 10/23 on full liquids, tolerated well, colostomy with dark brown stool 10/27-tolerating regular diet. No distress Objective vital signs Vital Sign Date Time Temp Pulse Resp B/P (MAP) Pulse Ox O2 Delivery O2 Flow Rate FiO2 10/27/25 13:00 98.2 77 18 133/79 (97) 95 98.2 10/27/25 08:00 Room Air* 0 21 Total Intake and Output 10/26/25 10/26/25 10/27/25 15:00 23:00 07:00 Intake Total 150 ml 100 ml 250 ml Output Total 1800 ml 200 ml Balance 150 ml -1700 ml 50 ml medications Current Medications Medications Dose Ordered Sig/Aayush Route Start Time Stop Time Status Last Admin Dose Admin Diagnostic Test (Pha) 1 strip Q6HR 10/18/25 00:00 10/27/25 12:50 1 STRIP Insulin Human Regular Q6HR SC 10/18/25 00:00 10/27/25 13:15 3 UNITS Dextrose 50 ml UD PRN IV 10/17/25 19:45 Acetaminophen/ Hydrocodone Bitart 1 tab Q4HP PRN PO 10/17/25 19:45 10/27/25 16:32 1 TAB Ondansetron HCl 4 mg Q4HP PRN IV 10/17/25 19:45 10/19/25 00:47 4 MG Nitroglycerin 0.4 mg Q5MINP PRN SL 10/17/25 19:45 Morphine Sulfate 2 mg Q30M PRN IV 10/17/25 19:45 Hydralazine HCl 10 mg Q6HP PRN IV 10/17/25 19:45 Alprazolam 0.25 mg Q8HP PRN PO 10/18/25 17:15 10/26/25 15:03 0.25 MG Acetaminophen 650 mg Q6HR NG 10/20/25 00:00 10/27/25 05:17 650 MG Metronidazole 100 ml @ 100 mls/hr Q8HR IV 10/19/25 22:00 10/27/25 05:18 100 MLS/HR Levofloxacin/ Dextrose 150 ml @ 100 mls/hr DAILY IV 10/21/25 10:46 10/27/25 10:11 100 MLS/HR Pantoprazole Sodium 40 mg DAILY IV 10/22/25 10:00 10/27/25 10:06 40 MG Losartan Potassium 25 mg DAILY PO 10/26/25 10:00 10/27/25 10:11 25 MG Metoprolol Tartrate 12.5 mg BID PO 10/25/25 22:00 10/27/25 10:08 12.5 MG Morphine Sulfate 2 mg Q4HPRN PRN IV 10/25/25 12:00 Citalopram Hydrobromide 10 mg DAILY PO 10/26/25 10:00 10/27/25 10:09 10 MG Apixaban 5 mg BID PO 10/26/25 22:00 10/27/25 10:09 5 MG Examination Obese female lying in the bed comfortably, well conversational, no acute distress General: Obese, afebrile, palor, mucosae are moist Cardiovascular: Regular S1 and S2. No murmurs, gallops or rubs. No JVD elevation. No pedal edema Respiratory: Normal B/L air entry on room air. Clear lung sounds on auscultation Abdomen: Soft, nontender, nondistended, normoactive, bowel sounds, no rebound tenderness, no organomegaly, no masses. Sutures clean dry intact. Genitourinary: Deferred MSK/skin: Mobilizes 4 limbs. Skin is dry and warm Neurological: No motor, no sensitive deficits, normal speech. Pupils are isocoric and reactive. Psych/Mental Status: A/Ox3 laboratory and microbiology Laboratory Tests 10/27/25 05:33 10/25/25 05:10 Test 10/27/25 05:33 Range/Units Serum Glucose 126 H 74-106 mg/dL Labs and/or images reviewed: Labs reviewed by me, Image(s) reviewed by me Problem List/Assessment/Plan Problem List/Assessment/Plan Large bowel obstruction secondary to stricture/infectious/neoplastic process status post partial sigmoid resection and end colostomy 10/19 Probably sepsis secondary to above Lactic acidosis Bilateral hepatic lobe cyst Likely 1.6 cm left adrenal adenoma Right inguinal hernia Uncontrolled hypertension History of 3 cm sliding-type hiatal hernia Mild gastritis CT abdomen with IV contrast shows Colonic obstruction with transition point at the sigmoid colon. There is thickening of the sigmoid colonic tissue where infectious/neoplastic process may be considered. Plan: Recommendation: Dr. Gupta Underwent ex lap 10/19. We will await operative findings. Follow up with path report. Follow up with GI services as outpatient within the next 2-4 weeks for colonoscopy, prior to reversal colostomy. Tolerating regular diet well Continue IV fluids, monitor blood pressure closely. Recommend PT eval Protonix 40 mg IV daily Tumor markers negative Patient underwent upper EGD December 2021 which 3 cm sliding-type hiatal hernia, mild antral gastritis and superficial ulceration in the midbody of the stomach Recommend IV antibiotics, IV fluids Rest of management per primary team Case discussed with Dr. Gupta Plan discussed with: Patient Dietary Evaluation Review Comments: Nutrition Recommendation: 1) Advance to Soft diet as medically feasible 2) Consider TPN if NPO>7 days 3) Monitor NPO status, lab values, weight trend, and I/O Expected Outcomes/Goals: GI symptoms to improve Intake to meet >75% estimated needs FU 2-3 days Fluid Accumulation (N/A): N/A Protein Calorie Malnutrition: N/A Is there a minimum of two crit: FINESSE Beal RESIDENT Oct 27, 2025 17:28
[2025-10-27] MEDS: ACETAMINOPHEN 650 mg PER 20.3 mL UD PO SCH (23:05)
--- NOTE | 2025-10-28 04:51 | DVH ---
Exam: CT CT AB PEL WO CON-NO ORAL OR IV History: follow up abdominal incision redness Comparison Study: CT scan of the abdomen pelvis performed on 10/17/2025 Technique: Multidetector spiral CT of the abdomen and pelvis was performed from lung bases to pubic symphysis. Imaging was performed without intravenous contrast. Coronal and sagittal multiplanar reformats were obtained from the axial data set by the technologist. Radiation Dose : 1. Abdomen/Pelvis: CTDIvol 27.88 mGy, DLP 1511.01 mGy*cm. Findings: Evaluation of vasculature and solid organs is limited due to lack of intravenous contrast use. Evaluation also limited by streak artifact from the patient's arms. Lung Bases: Bilateral lower lobe atelectasis. Visualized portions of the heart and pericardium are unremarkable. Liver: The liver is normal in size. There is a 1.9 cm low attenuating right hepatic lesion. There are additional subcentimeter low attenuating lesions for example in the left hepatic lobe. Gallbladder and Biliary Tree: The gallbladder is unremarkable. No intrahepatic or extrahepatic biliary ductal dilatation. Spleen: Unremarkable Pancreas: The pancreas is grossly unremarkable. Adrenal Glands: Unremarkable Kidneys: Kidneys are unremarkable without calculi or hydronephrosis. GI tract: The stomach is grossly normal in appearance. No evidence of small bowel wall thickening or abnormal dilatation to suggest bowel obstruction. There is colonic diverticulosis without acute diverticulitis. There is been interval partial colonic resection with left lower quadrant colostomy. No acute appendicitis. Peritoneum/mesentery/retroperitoneum. No evidence of free intraperitoneal air. There is high attenuating fluid in the right hemipelvis measuring 42 Hounsfield units compatible with hemorrhage. Lymph nodes: No lymphadenopathy. Abdominal Wall: Diffuse soft tissue swelling. There is fat stranding and Trace fluid in the midline ventral abdominal wall and skin curtis. Vasculature: The visualized abdominal aorta is normal in size and caliber. Evaluation of abdominal and pelvic vessels is limited due to lack of intravenous contrast. Urinary Bladder: Grossly unremarkable for degree of distention. Pelvic Organs: Unremarkable Musculoskeletal: No aggressive focal bony lesions, acute fractures or dislocation. IMPRESSION: 1. Interval partial colonic resection with left lower quadrant colostomy. No bowel obstruction. 2. High attenuating fluid in the right hemipelvis compatible with hemorrhage. 3. Diffuse abdominal wall soft tissue swelling. 4. There is fat stranding and trace fluid in the midline ventral abdominal wall and skin curtis may reflect postoperative change and/or seroma. Infection not excluded. 5. Low attenuating hepatic lesions, incompletely characterized on this noncontrast examination. MRI of the abdomen recommended for further evaluation. 6. Colonic diverticulosis without acute diverticulitis.
[2025-10-28 05:00] VITALS: BP 132/72; PULSE 72; RESP 19; TEMP 97.9; O2SAT 95
[2025-10-28 08:00] VITALS: PULSE 71; PULSE 77; RESP 18; O2SAT 95
[2025-10-28 09:00] VITALS: BP 157/81; PULSE 74; RESP 17; TEMP 98.5; O2SAT 95
[2025-10-28 11:44] LABS: Hematocrit 30.4 % (36.0-46.0); Hemoglobin 10.5 g/dL (12.2-16.2); Mean Corpuscular Hemoglobin 31.7 pg (28.0-32.0); Mean Corpuscular Volume 91.8 fL (80.0-100.0); Nucleated Red Blood Cells % 0.0 %
[2025-10-28 12:01] LABS: Alanine Aminotransferase 13 U/L (7-40); Albumin 3.2 g/dL (3.2-4.8); Alkaline Phosphatase 57 U/L (46-116); Anion Gap 8 (5-15); BUN/Creatinine Ratio 8.0 (10.0-20.0); Carbon Dioxide 30 mmol/L (20-31); Chloride 100 mmol/L (98-107); Potassium 3.8 mmol/L (3.5-5.1); Sodium 138 mmol/L (136-145); Total Protein 6.1 g/dL (5.7-8.2)
[2025-10-28 12:02] LABS: Bilirubin, Total 0.3 mg/dL (0.2-1.0); Blood Urea Nitrogen 6 mg/dL (9-23); Calcium 8.5 mg/dL (8.7-10.4); Glucose 128 mg/dL (74-106); Magnesium 1.6 mg/dL (1.6-2.6)
[2025-10-28 13:00] VITALS: BP 155/65; PULSE 75; RESP 18; TEMP 98.3; O2SAT 95
--- NOTE | 2025-10-28 13:10 | DVHPN2 ---
Progress Note - Surgical Date Seen: Oct 28, 2025 Post op day Post op day: 9 Subjective Patient reports: No new complaints (Patient no complaints, tolerating regular diet, ambulating, passing stool per ostomy, afebrile with vital stable.) Review of Systems: Deferred Objective Vital signs Vital Sign Date Time Temp Pulse Resp B/P (MAP) Pulse Ox O2 Delivery O2 Flow Rate FiO2 10/28/25 08:57 71 157/81 10/28/25 08:00 18 95 Room Air* 0 21 10/28/25 05:00 97.9 97.9 Total Intake and Output 10/27/25 10/27/25 10/28/25 15:00 23:00 07:00 Intake Total 650 ml 500 ml 700 ml Balance 650 ml 500 ml 700 ml Medications Current Medications Medications Dose Ordered Sig/Aayush Route Start Time Stop Time Status Last Admin Dose Admin Diagnostic Test (Pha) 1 strip Q6HR 10/18/25 00:00 10/28/25 12:00 1 STRIP Insulin Human Regular Q6HR SC 10/18/25 00:00 10/27/25 13:15 3 UNITS Dextrose 50 ml UD PRN IV 10/17/25 19:45 Acetaminophen/ Hydrocodone Bitart 1 tab Q4HP PRN PO 10/17/25 19:45 10/27/25 16:32 1 TAB Ondansetron HCl 4 mg Q4HP PRN IV 10/17/25 19:45 10/19/25 00:47 4 MG Nitroglycerin 0.4 mg Q5MINP PRN SL 10/17/25 19:45 Morphine Sulfate 2 mg Q30M PRN IV 10/17/25 19:45 Hydralazine HCl 10 mg Q6HP PRN IV 10/17/25 19:45 Alprazolam 0.25 mg Q8HP PRN PO 10/18/25 17:15 10/27/25 22:53 0.25 MG Metronidazole 100 ml @ 100 mls/hr Q8HR IV 10/19/25 22:00 10/28/25 05:41 100 MLS/HR Levofloxacin/ Dextrose 150 ml @ 100 mls/hr DAILY IV 10/21/25 10:46 10/28/25 08:58 100 MLS/HR Pantoprazole Sodium 40 mg DAILY IV 10/22/25 10:00 10/28/25 08:56 40 MG Losartan Potassium 25 mg DAILY PO 10/26/25 10:00 10/28/25 08:57 25 MG Metoprolol Tartrate 12.5 mg BID PO 10/25/25 22:00 10/28/25 08:57 12.5 MG Morphine Sulfate 2 mg Q4HPRN PRN IV 10/25/25 12:00 Citalopram Hydrobromide 10 mg DAILY PO 10/26/25 10:00 10/28/25 08:58 10 MG Apixaban 5 mg BID PO 10/26/25 22:00 10/28/25 08:56 5 MG Acetaminophen 650 mg Q6HR PO 10/28/25 00:00 10/28/25 12:31 650 MG Laboratory Laboratory Tests 10/28/25 11:00 Test 10/28/25 11:00 Range/Units Serum Glucose 128 H 74-106 mg/dL Examination: GENERAL:Normal (AAO x3), LUNGS:Normal (Nonlabored breathing with symmetric expansion), ABDOMEN:Normal (Nondistended, soft, depressible, midline incision with curtis in place, mild erythema in the lower aspect of the incision but without any drainage or fluctuance, left abdominal ostomy with pink mucosa and ostomy production, nontender) Labs and/or images reviewed: Labs reviewed by me (No leukocytosis hemoglobin stable) Problem List/Assessment/Plan Assessment and Plan Mrs. Calero is a 70-year-old female who presents with bloating for the past week and inability to have a bowel movement, but passing occasional flatus. CT shows colonic distention up to the sigmoid colon with a transition point, showing distal sigmoid colon decompression, no discrete mass identified, it looks like a stricture segment versus inflammatory process versus just collapse intestine versus non visible mass on imaging. I reviewed a prior CT of the abdomen pelvis from earlier in this year, that CT was done with oral contrast and it shows the same collapse in the same segment of the sigmoid with contrast making its way through it, but no proximal colonic distention. I would like the patient to get a colonoscopy prior to any possible surgical management. Interval: Patient is currently postop day 9 from exploratory laparotomy, partial sigmoid resection and end colostomy. Patient continues to do well, her discharge was held due to concerns of possible SSI and a CT was ordered overnight. CT does not show any fluid collection under the midline wound, there is a possible hematoma mentioned which I believe is just the surgical cell packing that I left in the surgery. No abnormalities in the CT scan. Patient is cleared for discharge. 1. Cleared for discharge per surgical standpoint 2. Diet regular 3. Patient will need ostomy education, and materials for home 4. No lifting over 10 lb for 8 weeks 5. May shower, soap and water okay to run over incision and ostomy. No swimming and/or bathing. 6. Tylenol and/or ibuprofen for baseline pain control 7. Recommend [place] 5-325 mg 1 tab p.o. every 6 hours p.r.n. severe pain 8. Follow up with Dr. He at surgery Clinic in 1 week My Orders My Orders Orders - CHERYLE KARIMI MD Procedure Category Date Status Time Acetaminophen PHA 10/28/25 In Process Solution Oral 00:00 Plan discussed with Plan discussed with: Patient Visit Coding Surgery Date of Service if different f: Oct 28, 2025 Billing Provider: CHERYLE KARIMI MD Surgery Visit Codes: [id number] INP/OBS CARE(HIGH) CHERYLE KARIMI MD Oct 28, 2025 13:10
--- NOTE | 2025-10-28 14:26 | MEDREC ---
[facility] ASP Intervention Section I [facility] ASP Intervention: IV to PO conversion (Suggest changing Abx from IV to PO if pt to remain another night, as pt is tolerating other oral medications and nutrition) BARBER DAVIS PHARMACIST Oct 28, 2025 14:26
--- NOTE | 2025-10-28 15:23 | DVHPN2 ---
Subjective No new issues No abd pain Changes from previous H/P or p: Changes Eyes: No Pain, No Vision change, No Conjunctivae inflammation, No Eyelid inflammation, No Other, No Redness ENT: No Ear pain, No Ear discharge, No Nose pain, No Nose discharge, No Nose congestion, No Mouth pain, No Mouth swelling, No Throat pain, No Throat swelling, No Other Cardiovascular: No Chest Pain, No Palpitations, No Orthopnea, No Paroxysmal Noc. Dyspnea, No Edema, No Lt Headedness, No Other Respiratory: No Cough, No Dry, No Shortness of breath, No SOB with excertion, No Wheezing, No Hemoptysis, No Pleuritic Pain, No Sputum, No Other Gastrointestinal: Nausea; No Vomiting; Abdominal Pain; No Diarrhea; C onstipation; No Melena, No Hematochezia, No Other Genitourinary: No Dysuria, No Frequency, No Incontinence, No Hematuria, No Retention, No Other Musculoskeletal: No other, No neck pain, No shoulder pain, No arm pain, No back pain, No hand pain, No leg pain, No foot pain Skin: No Rash, No Lesions, No Jaundice, No Bruising, No Other Objective Vitals Vital Signs Date Time Temp Pulse Resp B/P (MAP) Pulse Ox O2 Delivery O2 Flow Rate FiO2 10/28/25 13:00 98.3 75 18 155/65 (95) 95 98.3 10/28/25 08:00 Room Air* 0 21 Intake/Output Intake and Output 10/28/25 07:00 Intake Total 1850 ml Balance 1850 ml Intake Oral 1600 ml IV Total 250 ml # Voids 6 # Bowel Movements 1 General Appearance: Alert, Oriented X3, Cooperative Lungs: Clear to auscultation, Normal air movement Cardiovascular: Regular rate, Normal S1, Normal S2, No murmurs Abdomen: Normal bowel sounds, Other (Distended) Extremities: No edema Medications Current Medications Medications Dose Ordered Sig/Aayush Route Start Time Stop Time Status Last Admin Dose Admin Diagnostic Test (Pha) 1 strip Q6HR 10/18/25 00:00 10/28/25 12:00 1 STRIP Insulin Human Regular Q6HR SC 10/18/25 00:00 10/27/25 13:15 3 UNITS Dextrose 50 ml UD PRN IV 10/17/25 19:45 Acetaminophen/ Hydrocodone Bitart 1 tab Q4HP PRN PO 10/17/25 19:45 10/27/25 16:32 1 TAB Ondansetron HCl 4 mg Q4HP PRN IV 10/17/25 19:45 10/19/25 00:47 4 MG Nitroglycerin 0.4 mg Q5MINP PRN SL 10/17/25 19:45 Morphine Sulfate 2 mg Q30M PRN IV 10/17/25 19:45 Hydralazine HCl 10 mg Q6HP PRN IV 10/17/25 19:45 Alprazolam 0.25 mg Q8HP PRN PO 10/18/25 17:15 10/27/25 22:53 0.25 MG Metronidazole 100 ml @ 100 mls/hr Q8HR IV 10/19/25 22:00 10/28/25 14:11 100 MLS/HR Levofloxacin/ Dextrose 150 ml @ 100 mls/hr DAILY IV 10/21/25 10:46 10/28/25 08:58 100 MLS/HR Pantoprazole Sodium 40 mg DAILY IV 10/22/25 10:00 10/28/25 08:56 40 MG Losartan Potassium 25 mg DAILY PO 10/26/25 10:00 10/28/25 08:57 25 MG Metoprolol Tartrate 12.5 mg BID PO 10/25/25 22:00 10/28/25 08:57 12.5 MG Morphine Sulfate 2 mg Q4HPRN PRN IV 10/25/25 12:00 Citalopram Hydrobromide 10 mg DAILY PO 10/26/25 10:00 10/28/25 08:58 10 MG Apixaban 5 mg BID PO 10/26/25 22:00 10/28/25 08:56 5 MG Acetaminophen 650 mg Q6HR PO 10/28/25 00:00 10/28/25 12:31 650 MG Laboratory Results Laboratory Tests 10/28/25 11:00 Chemistry Test 10/28/25 11:00 Albumin 3.2 g/dL (3.2-4.8) Calcium Level 8.5 mg/dL (8.7-10.4) L Magnesium Level 1.6 mg/dL (1.6-2.6) Total Protein 6.1 g/dL (5.7-8.2) LFT Test 10/28/25 11:00 Alanine Aminotransferase (ALT) 13 U/L (7-40) Alkaline Phosphatase 57 U/L (46-116) Aspartate Amino Transferase (AST) 19 U/L (13-40) Total Bilirubin 0.3 mg/dL (0.2-1.0) Urinalysis Test 10/17/25 18:23 Urine Color Light-yellow (Yellow) Urine Clarity Clear (Clear) Urine pH 5.5 (5.0-9.0) Urine Specific [place] > 1.050 (1.001-1.035) Urine Protein Negative (Negative) Urine Ketones Trace (Negative) Urine Blood 1+ /uL (Negative) H Urine Nitrite Negative (Negative) Urine Bilirubin Negative (Negative) Urine Urobilinogen Normal mg/dL (Negative) Urine Leukocyte Esterase Negative /uL (Negative) Urine RBC 3 /hpf (0 - 4) Urine Microscopic WBC 4 /HPF (0-5) Urine Squamous Epithelial Cells Few /hpf (<5) Urine Bacteria None seen /hpf (None Seen) Urine Yeast (Budding) Occasional /hpf (None Urine Glucose Normal mg/dL (Normal) Assessment/Plan Assessment/Plan Large bowel obstruction, colonic obstruction with transition point at the sigmoid colon Morbid obesity GERD Type 2 diabetes Hypertension Constipation Plan NPO GI consult for possible colonoscopy Surgical consult IV fluids Mineral oil Fleet enemas Monitor closely Full code Advance directives discussed for 18 minutes 10/19/2025: Bowel obstruction Constipation GI consult pending NPO Surgery is on the case IV fluids IV Flagyl Fleet enemas per surgery Looks like she might need a colonoscopy Monitor closely 10/20/2025: LORIE: Continue IV fluids, give another bolus of 500 mL of normal saline IV antibiotics Flagyl Add Levaquin NPO NG tube suction Surgery is following Monitor closely 10/21/2025: Continue IV fluids Give 1 more bolus of 500 mL NS NPO NG tube suction Monitor closely 10/22/2025: Clear liquid diet IV fluids IV antibiotics Monitor closely 10/23/25: Clear liquids IV fluids IV antibiotics Monitor 10/24/2025: Full liquid diet Physical therapy Out of bed as tolerated IV fluids IV antibiotics Levaquin and Flagyl Monitor closely 10/25/2025: Atrial fibrillation with RVR: Start amiodarone drip Replace magnesium IV Echocardiogram Morphine p.r.n. for severe pain Hypertension: Resume home losartan Discontinue the IV fluids Continue IV antibiotics Lovenox therapeutic dose 10/26/2025: Atrial fibrillation: Resolved, discontinue amiodarone, continue metoprolol Switch Lovenox to Eliquis Hypertension: Losartan Physical therapy Out of bed as tolerated Monitor closely DC [place] Discharge planning for tomorrow 10/28/25: Doing well CT scan was reviewed by myself and also by Dr. He, no bleeding Labs are stable Replace Mg PO DC home Pathology report is negative for malignancy Plan discussed with: Patient, Spouse My Orders Orders - SIENA BRUCE MD Procedure Category Date Status Time * Metallography Teacher CONS 10/27/25 Transmitted Consult 16:15 Ct Ab Pel Wo Con-No CT 10/27/25 Resulted Oral Or Iv 18:06 Date of Service: Oct 28, 2025 Billing Provider: SIENA BRUCE MD Common Visit Codes: [id number] INP/OBS CARE(HIGH) SIENA BRUCE MD Oct 28, 2025 15:23
[2025-10-28] MEDS: MAGNESIUM OXIDE 400 MG TAB PO ONE (16:45)
[2025-10-28 17:00] VITALS: BP 125/54; PULSE 76; RESP 17; TEMP 98.1; O2SAT 98
--- NOTE | 2025-10-28 17:24 | DVHPN2 ---
Progress Note Date Seen: Oct 28, 2025 Resident Creating Document: FINESSE GAINES RESIDENT Medical Necessity Reason Pt with a Central, PICC or Fol: Yes Subjective Review of Systems 70-year-old female presented to the ER with a complaint of abdominal pain, bloating and constipation patient reports that her last bowel movement was 1 week back, reports that she has has been passing gas on and off. Reports crampy abdominal pain along with nausea. Reports generalized 40, and weakness. Denies any personal history of cancer. Last colonoscopy 5 years back. Past medical/surgical history: GERD, hypertension, constipation, diverticulosis on colonoscopy Social history: Denies smoking/drinking/drug use Family history notable for breast cancer in sister and cousin GI consultation was ordered by Dr. He for colonoscopy but the patient is currently undergoing ex lap. Patient seen and examined at bedside. Reports abdominal pain on ambulation. NG to LIS draining biliary colored secretion. Abdominal binder in place. Dressing and suture clean dry and intact. Not passing gas. 10/21-patient seen and examined, NG to LIS, on ice chips, bowel sounds normoactive. Colostomy output brownish 10/22 - on cl liq diet, no well, abd tender but soft 10/23 on full liquids, tolerated well, colostomy with dark brown stool 10/27-tolerating regular diet. No distress -tolerating regular diet. Repeat CT abdomen showed High attenuating fluid in the right hemipelvis compatible with hemorrhage. Low attenuating hepatic lesions, incompletely characterized on this noncontrast examination. MRI of the abdomen recommended for further evaluation. Objective vital signs Vital Sign Date Time Temp Pulse Resp B/P (MAP) Pulse Ox O2 Delivery O2 Flow Rate FiO2 10/28/25 13:00 98.3 75 18 155/65 (95) 95 98.3 10/28/25 08:00 Room Air* 0 21 Total Intake and Output 10/27/25 10/27/25 10/28/25 15:00 23:00 07:00 Intake Total 650 ml 500 ml 700 ml Balance 650 ml 500 ml 700 ml medications Current Medications Medications Dose Ordered Sig/Aayush Route Start Time Stop Time Status Last Admin Dose Admin Diagnostic Test (Pha) 1 strip Q6HR 10/18/25 00:00 10/28/25 12:00 1 STRIP Insulin Human Regular Q6HR SC 10/18/25 00:00 10/27/25 13:15 3 UNITS Dextrose 50 ml UD PRN IV 10/17/25 19:45 Acetaminophen/ Hydrocodone Bitart 1 tab Q4HP PRN PO 10/17/25 19:45 10/27/25 16:32 1 TAB Ondansetron HCl 4 mg Q4HP PRN IV 10/17/25 19:45 10/19/25 00:47 4 MG Nitroglycerin 0.4 mg Q5MINP PRN SL 10/17/25 19:45 Morphine Sulfate 2 mg Q30M PRN IV 10/17/25 19:45 Hydralazine HCl 10 mg Q6HP PRN IV 10/17/25 19:45 Alprazolam 0.25 mg Q8HP PRN PO 10/18/25 17:15 10/27/25 22:53 0.25 MG Metronidazole 100 ml @ 100 mls/hr Q8HR IV 10/19/25 22:00 10/28/25 14:11 100 MLS/HR Levofloxacin/ Dextrose 150 ml @ 100 mls/hr DAILY IV 10/21/25 10:46 10/28/25 08:58 100 MLS/HR Pantoprazole Sodium 40 mg DAILY IV 10/22/25 10:00 10/28/25 08:56 40 MG Losartan Potassium 25 mg DAILY PO 10/26/25 10:00 10/28/25 08:57 25 MG Metoprolol Tartrate 12.5 mg BID PO 10/25/25 22:00 10/28/25 08:57 12.5 MG Morphine Sulfate 2 mg Q4HPRN PRN IV 10/25/25 12:00 Citalopram Hydrobromide 10 mg DAILY PO 10/26/25 10:00 10/28/25 08:58 10 MG Apixaban 5 mg BID PO 10/26/25 22:00 10/28/25 08:56 5 MG Acetaminophen 650 mg Q6HR PO 10/28/25 00:00 10/28/25 12:31 650 MG Examination Obese female lying in the bed comfortably, well conversational, no acute distress General: Obese, afebrile, palor, mucosae are moist Cardiovascular: Regular S1 and S2. No murmurs, gallops or rubs. No JVD elevation. No pedal edema Respiratory: Normal B/L air entry on room air. Clear lung sounds on auscultation Abdomen: Soft, nontender, nondistended, normoactive, bowel sounds, no rebound tenderness, no organomegaly, no masses. Sutures clean dry intact. Genitourinary: Deferred MSK/skin: Mobilizes 4 limbs. Skin is dry and warm Neurological: No motor, no sensitive deficits, normal speech. Pupils are isocoric and reactive. Psych/Mental Status: A/Ox3 laboratory and microbiology Laboratory Tests 10/28/25 11:00 Test 10/28/25 11:00 Range/Units Serum Glucose 128 H 74-106 mg/dL Labs and/or images reviewed: Labs reviewed by me, Image(s) reviewed by me Problem List/Assessment/Plan Problem List/Assessment/Plan Large bowel obstruction secondary to stricture/infectious/neoplastic process status post partial sigmoid resection and end colostomy 10/19 Probably sepsis secondary to above Lactic acidosis Bilateral hepatic lobe cyst Likely 1.6 cm left adrenal adenoma Right inguinal hernia Uncontrolled hypertension History of 3 cm sliding-type hiatal hernia Mild gastritis CT abdomen with IV contrast shows Colonic obstruction with transition point at the sigmoid colon. There is thickening of the sigmoid colonic tissue where infectious/neoplastic process may be considered. Plan: Recommendation: Dr. Gupta Underwent ex lap 10/19. Pathology negative for malignancy. Follow up with GI services and surgeon as outpatient within the next 2-4 weeks for colonoscopy, prior to reversal colostomy. Repeat CT abdomen showed High attenuating fluid in the right hemipelvis compatible with hemorrhage. Low attenuating hepatic lesions, incompletely characterized on this noncontrast examination. MRI of the abdomen recommended for further evaluation. H&H stable. Tolerating regular diet well Continue IV fluids, monitor blood pressure closely. Recommend PT eval Protonix 40 mg IV daily Tumor markers negative Patient underwent upper EGD December 2021 which 3 cm sliding-type hiatal hernia, mild antral gastritis and superficial ulceration in the midbody of the stomach Recommend IV antibiotics, IV fluids Rest of management per primary team Case discussed with Dr. Gupta Plan discussed with: Patient Dietary Evaluation Review Comments: Nutrition Recommendation: 1) Advance to Soft diet as medically feasible 2) Consider TPN if NPO>7 days 3) Monitor NPO status, lab values, weight trend, and I/O Expected Outcomes/Goals: GI symptoms to improve Intake to meet >75% estimated needs FU 2-3 days Fluid Accumulation (N/A): N/A Protein Calorie Malnutrition: N/A Is there a minimum of two crit: FINESSE Beal RESIDENT Oct 28, 2025 17:24
== END 2025-10-28 18:40 | disposition home health service (06) | DRG 854 ==
LOC: ER 12:25 → OVERFLOW 19:37 → TELE-WESTW 22:19
PROVIDERS: ADMIT Internal Medicine Geriatric Medicine; ATTEND Internal Medicine Geriatric Medicine
PROC: 0D1M0Z4 Bypass Descending Colon to Cutaneous, Open Approach (ICD-10-PCS; 2025-10-19)
PROC: 0DBN0ZZ Excision of Sigmoid Colon, Open Approach (ICD-10-PCS; principal; 2025-10-19 13:03)
PROC: 0D9670Z Drainage of Stomach with Drainage Device, Via Natural or Artificial Opening (ICD-10-PCS; 2025-10-20)
DX: A41.9 Sepsis, unspecified organism (principal); E87.20 Acidosis, unspecified; K56.699 Other intestinal obstruction unspecified as to partial versus complete obstruction; E11.65 Type 2 diabetes mellitus with hyperglycemia; E66.01 Morbid (severe) obesity due to excess calories; I48.91 Unspecified atrial fibrillation; E86.0 Dehydration; I10 Essential (primary) hypertension; K76.89 Other specified diseases of liver; Z68.41 Body mass index [BMI] 40.0-44.9, adult; K59.00 Constipation, unspecified; K29.70 Gastritis, unspecified, without bleeding; K21.9 Gastro-esophageal reflux disease without esophagitis; K40.90 Unilateral inguinal hernia, without obstruction or gangrene, not specified as recurrent; F41.9 Anxiety disorder, unspecified; Z88.0 Allergy status to penicillin; Z80.3 Family history of malignant neoplasm of breast; Z83.3 Family history of diabetes mellitus; Z82.49 Family history of ischemic heart disease and other diseases of the circulatory system; Z83.6 Family history of other diseases of the respiratory system
CPT/HCPCS: 36415; 71045; 74176; 74177; 80048; 80053; 81001; 82105; 82378; 82962; 83605; 83690; 83735; 84100; 84484; 85025; 85610; 86301; 86304; 86850; 86900; 86901; 93005; 93306; 96361; 96374; 96375; 97110; 97116; 97163; 97530; 99291; G0378; J1100; J1815; J1885; J1956; J2250; J2405; J2470; J2704; J3490